=== PATIENT | female | born 1950 | race Caucasian/White ===

== ENCOUNTER → 2016-07-31 | Outpatient (CLI) | payer MEDICARE ==
--- NOTE | 2016-07-31 11:18 | MM ---
Reason for exam: additional evaluation requested from prior study. Last mammogram was performed 10 months ago. History: Patient is postmenopausal, has history of breast cancer at age 64, and had first child at age 34. Family history of breast cancer in maternal aunt at age 50. Malignant MG pre op needle loc LT of the left breast, November 15, 2015. Malignant MG stereo VAD BX LT of the left breast, October 28, 2015. Radiation therapy of the left breast, 2016. Physical Findings: Nurse did not find any significant physical abnormalities on exam. MG 3D Diag Mammo W/Cad JACOBO Bilateral CC and MLO view(s) were taken. Prior study comparison: October 15, 2015, left breast MG work up mamm w CAD LT. October 12, 2015, bilateral MG screening mammo w CAD. August 25, 2013, bilateral MG screening mammo w CAD. The breast tissue is heterogeneously dense. This may lower the sensitivity of mammography. Finding #1: Architectural distortion in the left breast consistent with known lumpectomy. Finding #2: There are a few typically benign round calcifications in both breasts. Skin lesion in the right breast. These results were verbally communicated with the patient and result sheet given to the patient on 07/31/16. ASSESSMENT: Benign, BI-RAD 2 RECOMMENDATION: Follow-up diagnostic mammogram of both breasts in 1 year.
== END | disposition home or self-care (01) ==
LOC: RADMAMWWP 09:37
PROVIDERS: ATTEND Radiology Radiation Oncology
DX: D05.12 Intraductal carcinoma in situ of left breast (principal)
CPT/HCPCS: G0204; G0279

== ENCOUNTER → 2016-08-08 | Outpatient (CLI) | payer MEDICARE ==
[2016-08-08 09:32] LABS: Basophils # (A) 0.1 k/uL (0-0.2); Basophils % (A) 1 %; CH 28.2; CHCM 31.2; Eosinophils # (A) 0.2 k/uL (0-0.7); Eosinophils % (A) 3 %; HCT 40.9 % (34.0-46.0); HDW 2.22; Luc # (Auto) 0.15; Luc % (Auto) 2; Lymphocytes # (A) 1.1 k/uL (1.0-4.8); Lymphocytes % (A) 18 %; MCH 28.8 pg (25.0-35.0); MCHC 31.8 g/dL (31.0-37.0); MCV 90.5 fL (80.0-100.0); Mean Platelet Volume 7.2; Monocytes # (A) 0.3 k/uL (0-1.0); Monocytes % (A) 5 %; Neutrophils # (A) 4.4 k/uL (1.3-7.7); Neutrophils % (A) 70 %; RBC 4.51 m/uL (3.80-5.40); RDW 13.1 % (11.5-15.5); WBC 6.3 k/uL (3.8-10.6); WBC (Perox) 6.39
[2016-08-08 09:55] LABS: ALT 20 U/L (9-52); AST 16 U/L (14-36); Alkaline Phosphatase 82 U/L (38-126); Anion Gap 8 mmol/L; Blood Urea Nitrogen 15 mg/dL (7-17); Calcium 9.1 mg/dL (8.4-10.2); Carbon Dioxide 29 mmol/L (22-30); Chloride 103 mmol/L (98-107); Cholesterol 170 mg/dL (<200); Glucose 100 mg/dL (74-99); HDL Cholesterol 57 mg/dL (40-60); Non-African American GFR(MDRD) >60 (>60 ml/min/1.73 sqM); Potassium 4.4 mmol/L (3.5-5.1); Sodium 140 mmol/L (137-145); Total Bilirubin 0.5 mg/dL (0.2-1.3); Total Protein 7.2 g/dL (6.3-8.2); Triglycerides 119 mg/dL (<150)
== END | disposition home or self-care (01) ==
LOC: LABWHC1 09:05
PROVIDERS: ATTEND Internal Medicine
DX: E78.5 Hyperlipidemia, unspecified (principal)
CPT/HCPCS: 36415; 80053; 80061; 84439; 84443; 85025

== ENCOUNTER → 2016-11-14 | Outpatient (CLI) | payer MEDICARE ==
--- NOTE | 2016-11-15 07:02 | BD ---
EXAMINATION TYPE: MG DEXA axial skeleton. DATE OF EXAM: 11/14/2016 COMPARISON: Prior DEXA bone scan March 16, 2009 CLINICAL HISTORY: Z78.0 POST MENOPAUSAL W/O HRT Height: 60.5 Weight: 152 FRAX RISK QUESTIONS: Alcohol (3 or more units per day): NO Family History (Parent hip fracture): NO Glucocorticoids (More than 3mos): YES (Ex: prednisone, prednisolone, methylprednisolone, dexamethasone, and hydrocortisone). History of Fracture in Adulthood: NO Secondary Osteoporosis: NO 1. Type 1 Diabetes: NO 2. Hyperthyroidism: NO 3. Menopause before 45: NO 4. Malnutrition: NO 5. Chronic liver disease: NO Rheumatoid Arthritis: NO Current Tobacco Use: NO RISK FACTORS HISTORY OF: Surgery to Spine GISELLE PLACEMENT, SCOLIOSIS SURGERY When: AT 30 YRS OLD Family History of Osteoporosis: NO Active: FAIRLY Diet low in dairy products/other sources of calcium: YES, A BIT Postmenopausal woman: 52 YRS OLD Lost more than 2 inches in height since high school: YES Hyperparathyroidism: NO Adrenal Insufficiency: NO MEDICATIONS: Prednisone or other steroids: RESTASIS DROPS FOR EYES, PROVENT, VENTOLIN, How Lon YRS Thyroid Medications: LEVOXYRIXINE How Lon YRS Additional Medications: TRAMADOL, TAMOXIFEN, CLARITIN, FLECAINIDE ACETATE, ASPIRIN, HX OF RADIATION , Additional History: HX OF BREAST CANCER , HEART TROUBLE, BACK PAIN EXAM MEASUREMENTS: Bone mineral densitometry was performed using the Pix4D System. LUMBAR SURG, WITH RODDING AND SCREWS, SCOLIOSIS SURGERY.....LUMBAR NOT SCANNED Bone mineral density about the R hip (g/cm2): 0.740 Bone mineral density about the L hip (g/cm2): 0.825 T Score values are as follows: -----R Neck: -1.9 -----L Neck: -1.8 -----R Total: -2.1 -----L Total: -1.4 Bone mineral density has: Decreased -7.8% since study of: 03.16.2009 FRAX5'S: THERE IS A 10.4% CHANCE FOR A MAJOR OSTEOPOROSIS FX AND A 1.5% FOR HIP FX....PROBABILITY O F FX IN 10 YRS TIME IMPRESSION: Osteopenia (T Score between -2.5 and -1 as noted by T score values persists in both hips. Bone densit y is noted to decrease or diminished from prior study. There remains slightly increased risk of fract ure and the patient may be considered for treatment. Re-Screen 2-5 years NOTE: T-SCORE=SD OF THE YOUNG ADULT MEAN.
--- NOTE | 2016-11-15 07:22 | WWHP ---
[facility] - HISTORY AND PHYSICAL DATE OF SERVICE: 11/14/2016 CHIEF COMPLAINT: The patient is here for her routine gynecologic exam. HPI: This is a 65-year-old G1, P1, with an LMP of 2001. The patient is without gynecologic complaints. She does have a history of lichen sclerosus of the vulva and infrequently uses a steroid cream as needed. She is without complaints and denies any postmenopausal bleeding. PAST MEDICAL HISTORY: Left breast cancer diagnosed in 2016 and she is status post lumpectomy and radiation treatment. Also history of intermittent PVCs, hypothyroidism, asthma, chronic hypertension, arthritis, seasonal allergies, atrial fibrillation and vulvar lichen sclerosus. MEDICATIONS: 1. Levothyroxine 25 mcg daily. 2. Flecainide 100 mg q.12 hours. 3. Tamoxifen 20 mg daily. 4. Tramadol 50 mg t.i.d. p.r.n. 5. Restasis drops b.i.d. 6. Aspirin 81 mg daily. 7. Proventil inhaler 2 puffs p.r.n. 8. Claritin q. day p.r.n. 9. Benadryl p.r.n. ALLERGIES: Allergies to HORACIO, STATINS, YOAV-DUR, AUGMENTIN which cause headache and nausea and CIPROFLOXACIN. PAST SURGICAL HISTORY: Left breast lumpectomy x2 in 2015, section in the past, colonoscopy 2011, bilateral cataract surgery in 2005, and Jc rods placed in her back in 1979. 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 She did have a vulvar biopsy which showed lichen sclerosus in the past. SOCIAL HISTORY: She denies tobacco, alcohol, and drug use. She is single and is not seeing anybody at this time. 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 FAMILY HISTORY: Father had prostate cancer and TB. Grandmother had colon cancer and a cousin had breast cancer. REVIEW OF SYSTEMS: She has gained about 7 pounds over the last year. She denies respiratory, cardiac or GI problems. She denies maltreatment or falling. : She denies any significant problems with urinary leakage. PHYSICAL EXAM: Blood pressure 113/75, height 5 feet 2 inches, weight 156 pounds, temperature 98.3, pulse 92. This is a well-developed, well-nourished, white female, who is alert and oriented x3, in no acute distress HEENT is within normal limits. NECK: Supple without mass or thyromegaly. CHEST AND LUNGS: Clear to auscultation. HEART: Regular rate and rhythm. BREASTS: The left breast has an area consistent with her previous lumpectomy at the upper part of the breast. There are no masses. There is no nipple discharge. There is a skin fleshy mass on the right breast near the sternum, which appears benign and measures approximately 2 x 2 cm. She states she has had this her entire life. Axillary exam is negative for adenopathy. BACK: Negative for CVA tenderness. ABDOMEN: Soft, nontender, without palpable masses. PELVIC EXAM: External genitalia reveals moderate atrophy with minimal generalized pallor of the vulva. There are no focal lesions. Cervix and vagina reveals moderate atrophy without lesions. There is no evidence of prolapse. The uterus is mid position, nongravid size, nontender. There are no palpable adnexal masses or tenderness. Rectovaginal exam is negative for mass or tenderness and is negative for occult blood. EXTREMITIES: Nontender. IMPRESSION: 1. A 65-year-old menopausal female with mildly symptomatic lichen sclerosus of the vulva, which is well controlled with Kenalog cream, which she uses p.r.n. 2. History of left breast cancer, status post lumpectomy and radiation therapy in 2016 with no evidence of recurrence at this time. PLAN: 1. Pap smear was performed. 2. Self breast examination was discussed. 3. Mammogram will be due in 07/2017. 4. Bone density screening will be done today because of her history of osteopenia. 5. Osteoporosis prevention was discussed. 6. She will continue to use Kenalog 0.1% cream b.i.d. p.r.n. She states she does not need a prescription for this at this time. 7. She will get a flu shot when available. 8. She will return in 1 year. MMODL / IJN: [id number] /
== END | disposition home or self-care (01) ==
LOC: WWCWWP 14:35
PROVIDERS: ATTEND Obstetrics & Gynecology
DX: M85.852 Other specified disorders of bone density and structure, left thigh (principal); M85.851 Other specified disorders of bone density and structure, right thigh; Z78.0 Asymptomatic menopausal state
CPT/HCPCS: 77080

== ENCOUNTER 2017-01-24 10:44 | Emergency (ER) | payer MEDICARE, OTHER ==
[2017-01-24 10:51] VITALS: RESP 18
[2017-01-24] MEDS ORDERED: HYDROcodone/APAP 7.5-325MG 1 EACH TAB PO ONE (11:17)
--- NOTE | 2017-01-24 11:40 | XR ---
EXAMINATION TYPE: XR knee complete LT DATE OF EXAM: 01/24/2017 COMPARISON: NONE HISTORY: Pain TECHNIQUE: Four views are submitted. FINDINGS: Diffuse osteopenia noted with moderate narrowing the joint spaces and chondrocalcinosis. There is a l arge subcutaneous hematoma anterior to the patella. Thin linear lucency involving the posterior zuleyka n patella noted. IMPRESSION: 1. Large prepatellar soft tissue hematoma. There is a lucency along the posterior margin patella. Non displaced fracture not excluded correlate with point tenderness. 2. Arthropathy in a pattern suggestive osteoarthritis or depositional arthropathy.
--- NOTE | 2017-01-24 11:55 | ED ---
Lower Extremity Injury HPI - General Chief Complaint: Extremity Injury, Lower Stated Complaint: Fall-Knee Injury Time Seen by Provider: 01/24/17 11:01 Source: patient, RN notes reviewed Mode of arrival: wheelchair Limitations: no limitations - History of Present Illness Initial Comments: This is a 66-year-old female presents emergency Department chief complaint left knee pain. Patient states he tripped and fell box landing onto her left knee. Patient states that it hurt states she was able to family but now has swelling and bruising noted. Patient states she cannot completely bend it because of the pain and swelling. Patient denies head injury no other injuries at this time. - Related Data Home Medications Medication Instructions Recorded Confirmed Albuterol Sulfate [Proventil Hfa] 2 puff INHALATION RT-Q4H PRN 03/12/14 01/24/17 Aspirin EC [Ecotrin Low Dose] 81 mg PO DAILY 03/12/14 01/24/17 Loratadine [Claritin] 10 mg PO DAILY PRN 03/12/14 01/24/17 traMADol HCL [Ultram] 50 mg PO TID PRN 03/12/14 01/24/17 diphenhydrAMINE [Benadryl] 25 mg PO BID PRN 11/12/15 01/24/17 Levothyroxine Sodium [Levoxyl] 25 mcg PO DAILY 11/30/15 01/24/17 Flecainide Acetate [Tambocor] 100 mg PO Q12HR 08/10/16 01/24/17 Tamoxifen Citrate 20 mg PO DAILY 08/10/16 01/24/17 Calcium Carbonate/Vitamin D3 1 tab PO DAILY 01/24/17 01/24/17 [Calcium 500-Vit D3 200 Tablet] cycloSPORINE [Restasis] 1 drop BOTH EYES BID 01/24/17 01/24/17 Previous Rx's Medication Instructions Recorded Hydrocodone/Acetaminophen [[place] 1 tab PO Q6HR PRN #20 tab 01/24/17 5-325] Allergies Allergy/AdvReac Type Severity Reaction Status Date / Time ciprofloxacin [From Cipro] Allergy Rash/Hives Verified 01/24/17 11:11 ciprofloxacin HCl Allergy Rash/Hives Verified 01/24/17 11:11 [From Cipro] fexofenadine HCl Allergy Rash/Hives Verified 01/24/17 11:11 [From Rupinder] amoxicillin [From Augmentin] AdvReac Nausea Verified 01/24/17 11:11 clavulanic acid AdvReac Nausea Verified 01/24/17 11:11 [From Augmentin] Egnkbzp-Sgx-Oag Reductase AdvReac muscle Verified 01/24/17 11:11 Inhibitor cramps theophylline anhydrous AdvReac headaches, Verified 01/24/17 11:11 [From Morteza-Dur] N/V Review of Systems ROS Statement: Those systems with pertinent positive or pertinent negative responses have been documented in the HPI. ROS Other: All systems not noted in ROS Statement are negative. Past Medical History Past Medical History: Atrial Fibrillation, Asthma, Cancer, Hypertension, Osteoarthritis (OA), Pneumonia, Thyroid Disorder Additional Past Medical History / Comment(s): SCOLIOSIS, MIGRAINES, HX OF ARRYTHMIA-HAS LOOP RECORDER., NEW DIAGNOSIS OF BREAST CANCER- GOING TO HAVE RADIATION TX., SEE CARDIOLOGY H & P. History of Any Multi-Drug Resistant Organisms: None Reported Past Surgical History: Back Surgery, Section Additional Past Surgical History / Comment(s): JACOBO CATARACT SX-LENS IMPLANTS, HAS A GISELLE IN BACK, loop recorder insertion, LEFT BREAST LUMPECTOMY (10/2015). Past Anesthesia/Blood Transfusion Reactions: No Reported Reaction, Motion Sickness Past Psychological History: No Psychological Hx Reported Smoking Status: Never smoker Past Alcohol Use History: None Reported Past Drug Use History: None Reported - Past Family History Father Family Medical History: COPD, Osteoarthritis (OA) Additional Family Medical History / Comment(s): ALCOHOLIC Mother Family Medical History: COPD Additional Family Medical History / Comment(s): ALCOHOLIC/SMOKER General Exam Limitations: no limitations General appearance: alert, in no apparent distress Head exam: Present: atraumatic, normocephalic, normal inspection Respiratory exam: Present: normal lung sounds bilaterally. Absent: respiratory distress, wheezes, rales, rhonchi, stridor Cardiovascular Exam: Present: regular rate, normal rhythm, normal heart sounds. Absent: systolic murmur, diastolic murmur, rubs, gallop, clicks Extremities exam: Present: other (Left knee there is moderate swelling, ecchymosis noted, limited range of motion, neurovascular intact there is moderate tenderness with palpation over the anterior surface) Course Vital Signs 01/24/17 10:49 Temperature 98.7 F Pulse Rate 95 Respiratory 18 Rate Blood Pressure 135/88 O2 Sat by Pulse 94 L Oximetry Medical Decision Making - Medical Decision Making 66-year-old female presented emergency department with chief complaint of left knee pain for fall. Patient has a large hematoma. There is no obvious fracture we did discuss possibility of small and a fracture of the patella though this is felt to be less likely. She'll have repeat x-rays follow-up with orthopedics. We discussed rest ice and elevate. Disposition Clinical Impression: Left knee pain, Traumatic hematoma of left knee Disposition: HOME SELF-CARE Condition: Stable Instructions: Knee Pain (ED) Additional Instructions: Please return to the Emergency Department if symptoms worsen or any other concerns. Prescriptions: Hydrocodone/Acetaminophen [[place] 5-325] 1 tab PO Q6HR PRN #20 tab PRN Reason: Pain Referrals: John Hickey MD [Primary Care Provider] - 1-2 days Naif Kaplan MD [STAFF PHYSICIAN] - 1-2 days Time of Disposition: 11:55
[2017-01-24 12:10] VITALS: BP 127/72; PULSE 89; TEMP 97.7
== END 2017-01-24 12:10 | disposition home or self-care (01) ==
LOC: EC 10:44
DX: S80.02XA Contusion of left knee, initial encounter (principal); I48.91 Unspecified atrial fibrillation; E07.9 Disorder of thyroid, unspecified; Z85.3 Personal history of malignant neoplasm of breast; Z98.41 Cataract extraction status, right eye; Z98.42 Cataract extraction status, left eye; Z96.1 Presence of intraocular lens; Z79.82 Long term (current) use of aspirin; Z79.899 Other long term (current) drug therapy; Z88.0 Allergy status to penicillin; Z88.1 Allergy status to other antibiotic agents; Z88.8 Allergy status to other drugs, medicaments and biological substances; W01.0XXA Fall on same level from slipping, tripping and stumbling without subsequent striking against object, initial encounter
CPT/HCPCS: 99283

== ENCOUNTER → 2017-04-11 | Outpatient (CLI) | payer MEDICARE ==
--- NOTE | 2017-04-11 17:27 | XR ---
EXAMINATION TYPE: XR ribs LT DATE OF EXAM: 04/11/2017 COMPARISON: NONE HISTORY: Pain in the left anterior rib TECHNIQUE: 4 views FINDINGS: I see no pleural effusion or pneumothorax. Left lung is clear of consolidation. I see no ri b fracture. There is moderate thoracic dextroscoliosis. IMPRESSION: No rib fracture seen.
--- NOTE | 2017-04-12 10:58 | USB ---
Reason for exam: clinical finding. History: Patient is postmenopausal, has history of breast cancer at age 64, and had first child at age 34. Family history of breast cancer in maternal aunt at age 50 and breast cancer in maternal cousin. Malignant MG pre op needle loc LT of the left breast, November 15, 2015. Malignant MG stereo VAD BX LT of the left breast, October 28, 2015. Radiation therapy of the left breast, 2016. Physical Findings: Nurse Summary: asymmetrical bony prominent left breast upper inner quadrant (nurse mj). US Breast LT Left breast ultrasound includes all four quadrants, the retroareolar region and axilla. Finding demonstrates scar noted at the 12 o'clock lumpectomy site. At the palpable 10 o'clock zone B/C position, prominent rib end and costal cartilage is noted. No other solid or cystic lesion. These results were verbally communicated with the patient and result sheet given to the patient on 04/11/17. ASSESSMENT: Benign, BI-RAD 2 RECOMMENDATION: Routine screening mammogram of both breasts in 4 months. Back on schedule for July 2017.
== END | disposition home or self-care (01) ==
LOC: RADUSWWP 15:40
PROVIDERS: ATTEND Internal Medicine Hematology & Oncology
DX: Z85.3 Personal history of malignant neoplasm of breast (principal); N63.12 Unspecified lump in the right breast, upper inner quadrant

== ENCOUNTER → 2017-08-02 | Outpatient (CLI) | payer MEDICARE ==
--- NOTE | 2017-08-06 12:58 | MM ---
Reason for exam: screening (asymptomatic). Last mammogram was performed 1 year ago. History: Patient is postmenopausal, has history of breast cancer at age 64, and had first child at age 34. Family history of breast cancer in maternal aunt at age 50 and breast cancer in maternal cousin. Malignant MG pre op needle loc LT of the left breast, November 15, 2015. Malignant MG stereo VAD BX LT of the left breast, October 28, 2015. Radiation therapy of the left breast, 2016. Took hormonal contraceptives for 2 months. Taking antineoplastic beginning at age 64. Physical Findings: A clinical breast exam by your physician is recommended on an annual basis and results should be correlated with mammographic findings. MG 3D Screening Mammo W/Cad Bilateral CC and MLO view(s) were taken. Prior study comparison: July 31, 2016, bilateral MG 3d diag mammo w/cad JACOBO. October 12, 2015, bilateral MG screening mammo w CAD. Post surgical changes in the left breast. No significant changes when compared with prior studies. ASSESSMENT: Benign, BI-RAD 2 RECOMMENDATION: Routine screening mammogram of both breasts in 1 year.
== END | disposition home or self-care (01) ==
LOC: RADMAMWWP 08:52
PROVIDERS: ATTEND Radiology Radiation Oncology
DX: Z12.31 Encounter for screening mammogram for malignant neoplasm of breast (principal); Z85.3 Personal history of malignant neoplasm of breast
CPT/HCPCS: 77063; 77067

== ENCOUNTER → 2017-09-12 | Outpatient (CLI) | payer MEDICARE ==
[2017-09-12 09:43] LABS: Basophils % (A) 1 %; Eosinophils # (A) 0.2 k/uL (0-0.7); Eosinophils % (A) 3 %; HCT 42.3 % (34.0-46.0); HGB 13.5 gm/dL (11.4-16.0); Lymphocytes % (A) 15 %; MCH 28.4 pg (25.0-35.0); MCV 88.7 fL (80.0-100.0); Mean Platelet Volume 7.4; Monocytes # (A) 0.4 k/uL (0-1.0); Monocytes % (A) 6 %; Neutrophils % (A) 73 %; Platelet Count 232 k/uL (150-450); RBC 4.77 m/uL (3.80-5.40); RDW 13.9 % (11.5-15.5); WBC 6.8 k/uL (3.8-10.6)
[2017-09-12 10:04] LABS: ALT 24 U/L (9-52); AST 17 U/L (14-36); Albumin 3.9 g/dL (3.5-5.0); Alkaline Phosphatase 71 U/L (38-126); Anion Gap 6 mmol/L; Blood Urea Nitrogen 12 mg/dL (7-17); Calcium 8.9 mg/dL (8.4-10.2); Carbon Dioxide 30 mmol/L (22-30); Chloride 103 mmol/L (98-107); Cholesterol 184 mg/dL (<200); Glucose 108 mg/dL (74-99); HDL Cholesterol 70 mg/dL (40-60); LDL Cholesterol,Calculated 99 mg/dL (0-99); Potassium 4.2 mmol/L (3.5-5.1); Sodium 139 mmol/L (137-145); Total Bilirubin 0.4 mg/dL (0.2-1.3); Total Protein 6.8 g/dL (6.3-8.2); Triglycerides 75 mg/dL (<150)
== END | disposition home or self-care (01) ==
LOC: LABWHC1 09:15
PROVIDERS: ATTEND Internal Medicine
DX: Z00.00 Encounter for general adult medical examination without abnormal findings (principal); E78.5 Hyperlipidemia, unspecified; I10 Essential (primary) hypertension
CPT/HCPCS: 36415; 80053; 80061; 84439; 84443; 85025

== ENCOUNTER → 2018-02-05 | Outpatient (CLI) | payer MEDICARE ==
[2018-02-05 10:21] VITALS: BP 146/86; PULSE 78; TEMP 98.1; BMI 25.6
--- NOTE | 2018-02-05 12:48 | P.HPOB ---
History of Present Illness H&P Date: 02/05/18 Chief Complaint: The patient is here for her routine gynecologic exam. This is a 67-year-old with an LMP of 2001. The patient is on tamoxifen has of her history of left breast cancer. She states about 1 month ago, she had a small amount of pink discharge from the vagina. She was not sure if it was because she scratched her vulvar skin or if it came from inside of the vagina. She states that only lasted for one day and denies any blood since then. Her oncologist wanted me to know about this since she is taking tamoxifen. She is otherwise without gynecologic complaints. Review of Systems She has lost about 16 pounds over the last year. She denies respiratory, cardiac and G.I. problems. She denies maltreatment. She did have a fall after she tripped over something and this did not lead to any significant injury. : she denies any significant problems with urinary leakage. Past Medical History Past Medical History: Atrial Fibrillation, Asthma, Cancer (Left breast cancer 2015, status post lumpectomy and radiation therapy.), Hypertension, Osteoarthritis (OA), Pneumonia, Thyroid Disorder Additional Past Medical History / Comment(s): SCOLIOSIS, MIGRAINES, HX OF BREAST CANCER WITH SURGERY & RADIATION (2016)., OCCASIONAL VERTIGO., BACK PAIN. 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 History of lichen sclerosis by vulvar biopsy. History of Any Multi-Drug Resistant Organisms: None Reported Past Surgical History: Back Surgery, Breast Surgery, Section Additional Past Surgical History / Comment(s): JACOBO CATARACT SX-LENS IMPLANTS, HAS A GISELLE IN BACK, LOOP RECORDER INSERTION & REMOVAL., LEFT BREAST LUMPECTOMY (). Colonoscopy 2011 . Past Anesthesia/Blood Transfusion Reactions: No Reported Reaction, Motion Sickness Past Psychological History: No Psychological Hx Reported Smoking Status: Never smoker Past Alcohol Use History: None Reported Past Drug Use History: None Reported Additional History: She is single and is not seeing anybody at this time. She is retired. - Past Family History Father Family Medical History: Cancer (Prostate cancer), COPD, Osteoarthritis (OA) Additional Family Medical History / Comment(s): ALCOHOLIC Mother Family Medical History: COPD Additional Family Medical History / Comment(s): ALCOHOLIC/SMOKER. Grandmother had colon cancer and a cousin had breast cancer. Medications and Allergies Home Medications Medication Instructions Recorded Confirmed Type Albuterol Sulfate [Proventil Hfa] 2 puff INHALATION RT-Q4H PRN 03/12/14 History Aspirin EC [Ecotrin Low Dose] 81 mg PO DAILY 03/12/14 02/05/18 History traMADol HCL [Ultram] 50 mg PO TID PRN 03/12/14 02/05/18 History diphenhydrAMINE [Benadryl] 25 mg PO BID PRN 11/12/15 02/05/18 History Levothyroxine Sodium [Levoxyl] 25 mcg PO DAILY 11/30/15 02/05/18 History Flecainide Acetate [Tambocor] 100 mg PO Q12HR 08/10/16 02/05/18 History Tamoxifen Citrate 20 mg PO DAILY 08/10/16 02/05/18 History cycloSPORINE [Restasis] 1 drop BOTH EYES BID 01/24/17 02/05/18 History Loratadine-Pseudoeph 10-240 mg 1 each PO DAILY 09/28/17 02/05/18 History [Claritin-D 24 Hr] Multivitamin [Multivitamins Adult PO DAILY 02/05/18 History Gummies] Allergies Allergy/AdvReac Type Severity Reaction Status Date / Time ciprofloxacin [From Cipro] Allergy Rash/Hives Verified 02/05/18 10:10 ciprofloxacin HCl Allergy Rash/Hives Verified 02/05/18 10:10 [From Cipro] fexofenadine HCl Allergy Rash/Hives Verified 02/05/18 10:10 [From Rupinder] amoxicillin [From Augmentin] AdvReac Nausea Verified 02/05/18 10:10 clavulanic acid AdvReac Nausea Verified 02/05/18 10:10 [From Augmentin] Uimixku-Kgy-Ktu Reductase AdvReac muscle Verified 02/05/18 10:10 Inhibitor cramps theophylline anhydrous AdvReac headaches, Verified 02/05/18 10:10 [From Morteza-Dur] N/V Exam Vital Signs Temp Pulse BP 02/05/18 10:13 98.1 F 78 146/86 Intake and Output 02/04/18 02/05/18 02/05/18 22:59 06:59 14:59 Other: Weight 63.503 kg Height 5'2", weight 140 pounds, BMI 25.6. This is a well-developed well-nourished white female who is alert and oriented times 3 in no acute distress. HEENT: Within normal limits. NECK: Supple without mass or thyromegaly. CHEST AND LUNGS: Clear to auscultation. HEART: Regular rate and rhythm. BREASTS: Are without mass or discharge. AXILLARY EXAM: Negative for adenopathy. BACK: Negative for CVA tenderness. Abnormal spine curvature consistent with her history. ABDOMEN: Soft, nontender, without palpable masses. PELVIC EXAM: external genitalia reveals moderate atrophy with mild pallor consistent with lichen sclerosis. There are no focal lesions . The cervix and vagina appear normal with moderate atrophy. There is no unusual discharge and no evidence of blood . There is no evidence of prolapse. The uterus is midposition, nongravid size and nontender. There are no palpable adnexal masses or tenderness. RECTAL EXAM: rectovaginal exam is negative for mass or tenderness and is negative for occult blood. EXTREMITIES: Nontender. IMPRESSION: 1. 67-year-old menopausal female with a small postmenopausal bleeding. Differential diagnosis will include small vulvar bleeding from scratched lichen sclerosis and possible endometrial bleeding. 2. history of left breast cancer on tamoxifen. Since she is on tamoxifen this would slightly increase the risk for endometrial cancer. 3. History of osteopenia PLAN: 1. Pap smear has been deferred since she had a normal one last year. 2. Self breast awareness was discussed with the patient. 3. Diagnostic mammogram was done on 08/02/2017 and was benign. She will continue to do her mammograms through her oncologist. 4. The patient will be scheduled for pelvic ultrasound. Endometrial thickness will be evaluated. Consider referral for endometrial sampling if the endometrium is thickened. 5. She will call she has recurrent bleeding or problems. 6. She did receive a flu shot this fall. 7. She will also return in one year and PRN. 8. Osteoporosis prevention was discussed. We will plan on repeating bone density testing next year.
== END ==
LOC: WWCWWP 09:32
PROVIDERS: ATTEND Obstetrics & Gynecology
DX: Z53.9 Procedure and treatment not carried out, unspecified reason (principal)

== ENCOUNTER → 2018-02-15 | Outpatient (CLI) | payer MEDICARE ==
--- NOTE | 2018-02-15 14:02 | US ---
EXAMINATION TYPE: US pelvis complete transvag DATE OF EXAM: 02/15/2018 COMPARISON: NONE CLINICAL HISTORY: N95.0 Postmenopausal bleeding. Episode of postmenopausal bloody discharge couple mo nths ago, 1, para 1 TECHNIQUE: . Transabdominal sonographic images of the pelvis were acquired. Transvaginal sonographi c images were medically necessary to better assess the following anatomy: endometrium and ovaries. Date of LMP: 2007 EXAM MEASUREMENTS: Uterus: 7.9 x 3.3 x 4.6 cm Endometrial Stripe: 0.7 cm Right Ovary: not seen Left Ovary: not seen 1. Uterus: anteverted 2. Endometrium: borderline thickened, complex with internal cystic regions. 3. Right Ovary: not seen due to overlying peristalsing bowel 4. Left Ovary: not seen due to overlying peristalsing bowel 5. Bilateral Adnexa: wnl 6. Posterior cul-de-sac: wnl IMPRESSION: Abnormally thickened and heterogenous endometrium in a postmenopausal female measuring up to 7 mm. Internal cystic areas are seen. Considerations are for endometrial hyperplasia, endometrial polyps or endometrial mass. Direct visualization could be performed for further evaluation.
--- NOTE | 2018-02-20 13:41 | P.PN ---
Progress Note - Text Progress Note Date: 02/20/18 OUTPATIENT FOLLOW-UP NOTE TEST(S)/RESULTS: pelvic ultrasound done on 02/15/2018 shows an endometrial thickness of 7 mm which is thickened for a postmenopausal female. METHOD OF NOTIFICATION: the patient was notified by phone. PATIENT COMMENTS: the patient had a small amount of bleeding again after the pelvic ultrasound but is no longer bleeding. DIAGNOSIS: small postmenopausal bleeding on tamoxifen with thickened endometrium by pelvic ultrasound. DISCUSSION: we have discussed the importance of sampling the endometrium. Since she was found to have moderate genital atrophy and because her only delivery was by section, I feel it would be best that she be referred for endometrial sampling and possible hysteroscopy and D&C. PLAN: the patient will be referred to a local ladle pourer for endometrial sampling and evaluation of the postmenopausal bleeding.
== END | disposition home or self-care (01) ==
LOC: RADUSWWP 12:33
PROVIDERS: ATTEND Obstetrics & Gynecology
DX: N85.8 Other specified noninflammatory disorders of uterus (principal); N95.0 Postmenopausal bleeding
CPT/HCPCS: 76830; 76856

== ENCOUNTER → 2018-03-05 | Outpatient (CLI) | payer MEDICARE ==
[2018-03-05 08:35] LABS: Basophils % (A) 1 %; Eosinophils # (A) 0.3 k/uL (0-0.7); Eosinophils % (A) 4 %; HCT 41.5 % (34.0-46.0); HGB 13.5 gm/dL (11.4-16.0); Lymphocytes # (A) 1.7 k/uL (1.0-4.8); Lymphocytes % (A) 24 %; MCH 29.2 pg (25.0-35.0); MCHC 32.6 g/dL (31.0-37.0); MCV 89.7 fL (80.0-100.0); Mean Platelet Volume 7.4; Monocytes # (A) 0.4 k/uL (0-1.0); Monocytes % (A) 5 %; Neutrophils # (A) 4.6 k/uL (1.3-7.7); Neutrophils % (A) 65 %; Platelet Count 234 k/uL (150-450); RBC 4.62 m/uL (3.80-5.40); RDW 13.2 % (11.5-15.5); WBC 7.1 k/uL (3.8-10.6)
== END | disposition home or self-care (01) ==
LOC: LABPAT 07:50
PROVIDERS: ATTEND Obstetrics & Gynecology
DX: Z01.812 Encounter for preprocedural laboratory examination (principal); N95.0 Postmenopausal bleeding; N88.2 Stricture and stenosis of cervix uteri
CPT/HCPCS: 85025

== ENCOUNTER 2018-03-11 06:32 | Day surgery (SDC) | payer MEDICARE ==
[2018-03-06 14:31] VITALS: BMI 25.4
[~2018-03-11 06:32] MED LIST: DEXAMETHASONE SOD PHOSPHATE 10 MG/ML 1 ML VIAL IV ONE; HYDROmorphone 0.5 MG/0.5 ML SYRINGE IVP PRN; LACTATED RINGERS 1,000 ML IV SCH; LIDOCAINE 1% 20 ML VIAL (10MG/ML) FOR IV START INTRADERMA PRN; ONDANSETRON 4 MG/2 ML VIAL IVP ONE; Pre Op ABX Message 1 EACH MISC MISCELLANE ONE; SCOPOLAMINE 1.5MG/72HR PATCH TRANSDERM ONE
[2018-03-11] MEDS ORDERED: ONDANSETRON 4 MG/2 ML VIAL IVP PRN (08:15)
[2018-03-11] MEDS ORDERED: LACTATED RINGERS 1,000 ML IV SCH (08:15)
[2018-03-11] MEDS ORDERED: KETOROLAC 30 MG/ML 1 ML VIAL IVP PRN (08:15)
[2018-03-11] MEDS ORDERED: diphenhydrAMINE 50 MG/ML 1 ML VIAL IVP PRN (08:15)
[2018-03-11] MEDS ORDERED: SIMETHICONE 80 MG CHEWABLE PO PRN (08:15)
[2018-03-11] MEDS ORDERED: IBUPROFEN 600 MG TAB PO PRN (08:15)
[2018-03-11] MEDS ORDERED: METOCLOPRAMIDE 5 MG/ML 2 ML VIAL IVP PRN (08:15)
[2018-03-11] MEDS ORDERED: Acetaminophen-Codeine 300-30mg TAB PO PRN ×2 (08:15)
--- NOTE | 2018-03-11 08:25 | P.OP ---
Date of Procedure: 03/11/18 Preoperative Diagnosis: #1. Menorrhagia Postoperative Diagnosis: Same Procedure(s) Performed: #1. Diagnostic hysteroscopy #2. NovaSure endometrial ablation Anesthesia: other (Gen. by face mask) Surgeon: Lawrence Barbosa Estimated Blood Loss (ml): 5 IV fluids (ml): 700 Urine output (ml): 75 Pathology: none sent Condition: stable Disposition: PACU Operative Findings: Preoperative pelvic examination demonstrated a roughly 5-6 week midplane mobile normal shaped uterus with normal adnexa bilaterally. Intraoperatively, the cervix was 4 cm in length was uterus sounded to approximately 10 cm. The hysteroscopic view of the uterus demonstrated a moderate amount of blood in the cavity as she was on her menses. The tubal ostia were not seen but there was no apparent pathology throughout. The settings for the NovaSure tool where a length of 6.0 cm, a width of 3.8 cm, and a total power of 125 W. Prior to successful application of the NovaSure tool, 2 tools were previously placed and set with cavity checks past but failed. The first tool failed secondary to vacuum failure on 3 separate occasions. It was replaced with a second 20 which failed secondary to a light on the base unit reading array position that would not allow the tool to unable. The third tool with the settings as above was successful. After a run time of 42 seconds, the base unit read "procedure complete." The postprocedural result was good but there was still some blood seen in the cavity. The patient is a potential candidate for vaginal hysterectomy should become necessary. Description of Procedure: The patient was prepped and draped in usual fashion after general anesthesia was administered by the anesthesiologist. A weighted speculum was placed and the bladder was drained of approximately 75 mL of clear anjelica urine. The cervix was sent for 72 while uterus sounded to approximately 10 cm. Serial dilation was carried out to admit the diagnostic hysteroscope which was placed to the fundus and distended with saline. The bilateral tubal ostia regions were seen but there was clot and blood in the admixture making ClearView of them impossible. There was no apparent pathology to include polyps or fibroids. The scope was set aside and the the NovaSure tool placed and seated well. After seating, the cavity check was attempted and passed and the tool enabled. The run was started and the base unit then read vacuum failure. The tool was really enabled after second cavity check and the base unit again read "vacuum failure." The 2 was discarded and the second tool placed within the cavity. After the tool was placed and opened and the settings were made, the cavity check was attempted and passed without difficulty. The tool was enabled and we were unable to start the run as the base unit read "array position" failure. Another attempt was made and the tool again read array position failure. A third to was then used and placed into the endometrial cavity and opened with the settings of 6.0 for a length, 3.84 with for a total power 125 W. The tool was enabled and the run was started. After total run time of 42 seconds, the base unit read "procedure complete." The 2 was removed and discarded and the diagnostic hysteroscope placed in the fundus. The procedure appeared to be good thorough not particularly typical. There was still some blood present within the cavity. The xavier did appear to be well charred. The scope was removed and set aside an Allis her mentation removed as well. There was no ongoing bleeding from either the cervix or from the tenaculum points. Estimated blood loss for the case was less than 5 mL. There were no complications aside from the failure of the first 2 tools. All sponge, instrument, and needle counts were correct. The patient tolerated the procedure well and proceeded to the recovery room in stable condition.
[2018-03-11] MEDS ORDERED: PROPOFOL 10 MG/ML 20 ML VIAL IV ONE (08:36)
[2018-03-11] MEDS ORDERED: fentaNYL (PF) 50 MCG/ML 2 ML AMP ONE (08:36)
[2018-03-11] MEDS ORDERED: MIDAZOLAM 2 MG/2 ML VIAL ONE (08:36)
[2018-03-11] MEDS ORDERED: LIDOCAINE 1% INJ 10MG/ML (20 ML MDV) ONE (08:36)
[2018-03-11] MEDS ORDERED: KETOROLAC 30 MG/ML 1 ML VIAL ONE (08:36)
[2018-03-11] MEDS ORDERED: LACTATED RINGERS 1,000 ML IV ONE ×2 (09:20)
--- NOTE | 2018-03-11 09:23 | P.OP ---
Date of Procedure: 03/11/18 Preoperative Diagnosis: #1. Postmenopausal bleeding Postoperative Diagnosis: Same Procedure(s) Performed: #1. Diagnostic hysteroscopy #2. Elevation and curettage Anesthesia: other (Gen. by face mask) Surgeon: Lawrence Barbosa Estimated Blood Loss (ml): 5 IV fluids (ml): 600 Urine output (ml): 150 Pathology: other (Endometrial curettings) Condition: stable Disposition: PACU Operative Findings: Preoperative pelvic examination confirmed an extraordinarily atrophic vagina which admitted only 1 finger. The uterus was approximately 4-5 weeks in size, midplane, mobile, and normal in shape. Intraoperatively, the uterus sounded to 8 cm. There was some potential a polypoid tissue seen along the posterior aspect of the uterine wall but no other pathology noted. A small amount of tissue was sent to pathology for diagnoses. The typical gritty texture was encountered throughout. Description of Procedure: The patient was prepped and draped in usual fashion after general anesthesia was administered by the anesthesiologist. A bivalve speculum was placed is a weighted speculum would not fit. The anterior lip of the cervix was grasped with a single-tooth tenaculum and the uterus sounded to approximately 8 cm as noted above. Serial dilation was carried out to admit the diagnostic hysteroscope which was placed and the findings were benign in appearance as noted above. After adequate hysteroscopy carried out, the scope was set aside and a small sharp curet utilized to thoroughly and circumferentially sweep the endometrial cavity of its contents which were then collected onto a Telfa. The specimen was sent for pathological diagnoses. There was a small amount of tissue apparent. After adequate curettage been carried out, all instrumentation was removed. There was a small amount of bleeding ongoing from the anterior lip of the cervix which was minimal in nature. There was additionally a skin split at the posterior peritoneum from the speculum which was also not repaired. All sponge, instrument, and needle counts were correct. Estimated blood loss for the case was less than 5 mL. There were no compilations medications. The patient tolerated the procedure well and proceeded to the recovery room in stable condition.
[2018-03-11 09:34] VITALS: TEMP 97
[2018-03-11 09:35] VITALS: RESP 16
[2018-03-11 10:13] VITALS: BP 143/88; PULSE 74
== END 2018-03-11 10:47 | disposition home or self-care (01) ==
LOC: OR 06:32
PROVIDERS: ATTEND Obstetrics & Gynecology
DX: N95.0 Postmenopausal bleeding (principal); N95.2 Postmenopausal atrophic vaginitis; N88.2 Stricture and stenosis of cervix uteri; R93.89 Abnormal findings on diagnostic imaging of other specified body structures; I48.91 Unspecified atrial fibrillation; J45.909 Unspecified asthma, uncomplicated; E07.9 Disorder of thyroid, unspecified; I10 Essential (primary) hypertension; L90.0 Lichen sclerosus et atrophicus; G43.909 Migraine, unspecified, not intractable, without status migrainosus; M19.90 Unspecified osteoarthritis, unspecified site; M85.80 Other specified disorders of bone density and structure, unspecified site; Z85.3 Personal history of malignant neoplasm of breast; Z92.3 Personal history of irradiation; Z80.42 Family history of malignant neoplasm of prostate; Z80.3 Family history of malignant neoplasm of breast; Z80.0 Family history of malignant neoplasm of digestive organs; Z79.82 Long term (current) use of aspirin; Z79.891 Long term (current) use of opiate analgesic; Z79.810 Long term (current) use of selective estrogen receptor modulators (SERMs); Z79.890 Hormone replacement therapy; Z79.899 Other long term (current) drug therapy; Z88.1 Allergy status to other antibiotic agents; Z88.8 Allergy status to other drugs, medicaments and biological substances
CPT/HCPCS: 88305; 58558; J2250; J1100; J2405; J2001; J3010; J1885; J2704

== ENCOUNTER → 2018-08-05 | Outpatient (CLI) | payer MEDICARE ==
--- NOTE | 2018-08-05 11:54 | MM ---
Reason for exam: additional evaluation requested from prior study. Last mammogram was performed 1 year ago. History: Patient is postmenopausal, has history of breast cancer at age 64, and had first child at age 34. Family history of breast cancer in maternal aunt at age 50 and breast cancer in maternal cousin. Malignant MG pre op needle loc LT of the left breast, November 15, 2015. Malignant MG stereo VAD BX LT of the left breast, October 28, 2015. Radiation therapy of the left breast, 2016. Took hormonal contraceptives for 2 months. Taking antineoplastic beginning at age 64. Physical Findings: Nurse did not find any significant physical abnormalities on exam. MG 3D Diag Mammo W/Cad JACOBO Bilateral CC and MLO view(s) were taken. XCCL view(s) were taken of the left breast. Prior study comparison: August 02, 2017, bilateral MG 3d screening mammo w/cad. July 31, 2016, bilateral MG 3d diag mammo w/cad JACOBO. The breast tissue is heterogeneously dense. This may lower the sensitivity of mammography. Post therapy change on the left. These results were verbally communicated with the patient and result sheet given to the patient on 08/05/18. ASSESSMENT: Benign, BI-RAD 2 RECOMMENDATION: Follow-up diagnostic mammogram of both breasts in 1 year.
== END | disposition home or self-care (01) ==
LOC: RADMAMWWP 10:00
PROVIDERS: ATTEND Radiology Radiation Oncology
DX: Z08 Encounter for follow-up examination after completed treatment for malignant neoplasm (principal); D05.12 Intraductal carcinoma in situ of left breast; Z85.3 Personal history of malignant neoplasm of breast
CPT/HCPCS: 77066; G0279; 77062

== ENCOUNTER → 2019-02-17 | Outpatient (CLI) | payer MEDICARE ==
[2019-02-17 10:23] LABS: HGB 12.9 gm/dL (11.4-16.0); MCH 29.1 pg (25.0-35.0); MCHC 32.2 g/dL (31.0-37.0); MCV 90.4 fL (80.0-100.0); Mean Platelet Volume 8.8; Neutrophils % (A) 64 %; Platelet Count 226 k/uL (150-450); RBC 4.42 m/uL (3.80-5.40); RDW 13.2 % (11.5-15.5); WBC 5.3 k/uL (3.8-10.6)
[2019-02-17 10:24] LABS: Basophils # (A) 0.1 k/uL (0-0.2); Basophils % (A) 1 %; Eosinophils # (A) 0.2 k/uL (0-0.7); Eosinophils % (A) 4 %; Lymphocytes # (A) 1.2 k/uL (1.0-4.8); Lymphocytes % (A) 22 %; Monocytes # (A) 0.3 k/uL (0-1.0); Monocytes % (A) 6 %; Neutrophils # (A) 3.4 k/uL (1.3-7.7)
[2019-02-17 17:12] LABS: African American GFR (CKD) 87.8 (60.0-200.0); Albumin/Globulin Ratio 1.82 (1.60-3.17); Anion Gap 3.7 mmol/L (4.00-12.00); BUN/Creat Ratio 18.75 Ratio (12.00-20.00); Calcium 8.9 mg/dL (8.7-10.3); Carbon Dioxide 29.3 mmol/L (21.6-31.8); Chol/HDL Ratio 2.14; Globulin 2.2 g/dL (1.6-3.3); Non-African American GFR(CKD) 75.8 (60.0-200.0); Potassium 4.4 mmol/L (3.5-5.5); Total Bilirubin 0.4 mg/dL (0.3-1.2); Total Protein 6.2 g/dL (6.2-8.2)
[2019-02-17 17:20] LABS: T4, Free (Free Thyroxine) 1.2 ng/dL (0.80-1.80)
== END | disposition home or self-care (01) ==
LOC: LABWHC1 09:19
PROVIDERS: ATTEND Internal Medicine
DX: J45.909 Unspecified asthma, uncomplicated (principal); I48.91 Unspecified atrial fibrillation; I10 Essential (primary) hypertension
CPT/HCPCS: 36415; 80053; 80061; 84439; 84443; 85025

== ENCOUNTER 2019-04-25 08:49 | Emergency (ER) | payer MEDICARE ==
[2019-04-25 08:54] VITALS: BP 163/91; RESP 20; TEMP 97.8
--- NOTE | 2019-04-25 09:28 | XR ---
Left wrist HISTORY: Left wrist pain Correlation to left hand 11/04/2012 Arthropathy changes are extensive, subluxation present at the carpometacarpal joint of the first digi t with associated osteoarthritic change as on prior exam. 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 Calcification present along the triangular fibrocartilage as on prior. Mild negative ulna r variance. No fracture or dislocation. Joint space loss and subchondral sclerosis present at the int ercarpal joints. Soft tissue calcification also noted lateral to the radial scaphoid joint. Remodelin g is present at the radiocarpal joint. IMPRESSION: Osteoarthritis, consider crystal deposition arthropathy, hypercalcemic states.
--- NOTE | 2019-04-25 10:09 | US ---
EXAMINATION TYPE: US extremity nonvascular ltd LT DATE OF EXAM: 04/25/2019 COMPARISON: NONE CLINICAL HISTORY: left wrist/cyst?? near scaphoid area. Left wrist pain and swelling. TECHNIQUE/FINDINGS: Targeted ultrasound was performed of the left wrist at the area of pain and swell ing. No solid or cystic masses seen. No abnormalities seen on today's exam. IMPRESSION: No sonographic abnormality in the patient's area of pain and swelling of the left wrist. Given history ganglion cyst is possible. MRI would better characterize the wrist.
[2019-04-25] MEDS ORDERED: KETOROLAC 60 MG/2 ML VIAL IM STA (10:12)
[2019-04-25] MEDS ORDERED: ACET/COD 300 MG/30 MG STARTER PACK 6 TAB BTL PO STA (10:13)
--- NOTE | 2019-04-25 10:13 | ED ---
Upper Extremity HPI - General Chief Complaint: Extremity Injury, Upper Stated Complaint: lt hand/wrist pain Time Seen by Provider: 04/25/19 09:01 Source: patient Mode of arrival: ambulatory Limitations: no limitations - History of Present Illness Initial Comments: 68-year-old female presenting for dorsal aspect left wrist pain. Patient said she has history of arthritis as carpal tunnel in the left wrist. Patient states that she now is pain on the dorsal aspect more near the thumb. Patient states she feels a small lump. She states it is very tender has been increasing in pain. Past 2 days she denies redness fever or flulike symptoms. Patient states she is able to range the wrist however this is painful. Patient denies history of gout. He abuses negative patient denies any other areas of involvement. Remaining ROS (-). Upon arrival patient appears well there is no signs of acute distress. - Related Data Home Medications Medication Instructions Recorded Confirmed Aspirin EC [Ecotrin Low Dose] 81 mg PO DAILY 03/12/14 03/06/18 traMADol HCL [Ultram] 50 mg PO TID PRN 03/12/14 03/11/18 diphenhydrAMINE [Benadryl] 25 mg PO BID PRN 11/12/15 03/11/18 Levothyroxine Sodium [Levoxyl] 25 mcg PO DAILY 11/30/15 03/11/18 Tamoxifen Citrate 20 mg PO DAILY 08/10/16 03/11/18 cycloSPORINE [Restasis] 1 drop BOTH EYES BID 01/24/17 03/11/18 Multivitamin [Multivitamins Adult 1 tab PO DAILY 02/05/18 03/06/18 Gummies] Albuterol Inhaler [Ventolin Hfa 2 puff INHALATION DIRECTED PRN 03/06/18 03/11/18 Inhaler] Cholecalciferol [Vitamin D3] 1,000 unit PO DAILY 03/06/18 03/06/18 Flecainide Acetate [Tambocor] 100 mg PO Q12HR 03/06/18 03/11/18 Loratadine-Pseudoeph 10-240 mg 1 each PO DAILY PRN 03/06/18 03/11/18 [Claritin-D 24 Hr] Allergies Allergy/AdvReac Type Severity Reaction Status Date / Time ciprofloxacin [From Cipro] Allergy Rash/Hives Verified 04/25/19 08:53 ciprofloxacin HCl Allergy Rash/Hives Verified 04/25/19 08:53 [From Cipro] fexofenadine HCl Allergy Rash/Hives Verified 04/25/19 08:53 [From Rupinder] amoxicillin [From Augmentin] AdvReac Nausea Verified 04/25/19 08:53 clavulanic acid AdvReac Nausea Verified 04/25/19 08:53 [From Augmentin] Adwdmqb-Ekj-Ded Reductase AdvReac muscle Verified 04/25/19 08:53 Inhibitor cramps theophylline anhydrous AdvReac headaches, Verified 04/25/19 08:53 [From Morteza-Dur] N/V Review of Systems ROS Statement: Those systems with pertinent positive or pertinent negative responses have been documented in the HPI. ROS Other: All systems not noted in ROS Statement are negative. Past Medical History Past Medical History: Atrial Fibrillation, Asthma, Cancer, Hypertension, Osteoarthritis (OA), Pneumonia, Thyroid Disorder Additional Past Medical History / Comment(s): SCOLIOSIS, MIGRAINES, HX OF BREAST CANCER WITH SURGERY & RADIATION (2016)., OCCASIONAL VERTIGO., BACK PAIN. 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 History of lichen sclerosis by vulvar biopsy. History of Any Multi-Drug Resistant Organisms: None Reported Past Surgical History: Back Surgery, Breast Surgery, Section Additional Past Surgical History / Comment(s): JACOBO CATARACT SX-LENS IMPLANTS, HAS A GISELLE IN BACK, LOOP RECORDER INSERTION & REMOVAL., LEFT BREAST LUMPECTOMY (10/2015). Colonoscopy 2011 . Past Anesthesia/Blood Transfusion Reactions: No Reported Reaction, Motion Sickness Past Psychological History: No Psychological Hx Reported Smoking Status: Never smoker Past Alcohol Use History: None Reported Past Drug Use History: None Reported - Past Family History Father Family Medical History: Cancer (Prostate cancer), COPD, Osteoarthritis (OA) Additional Family Medical History / Comment(s): ALCOHOLIC Mother Family Medical History: No Reported History Additional Family Medical History / Comment(s): ALCOHOLIC/SMOKER. Grandmother had colon cancer and a cousin had breast cancer. General Exam - General Exam Comments Initial Comments: General: The patient is awake and alert, in no distress, and does not appear acutely ill. Eye: +3 mm Pupils are equal, round and reactive to light, extra-ocular movements are intact. No nystagmus. There is normal conjunctiva bilaterally. No signs of icterus. Ears, nose, mouth and throat: There are moist mucous membranes and no oral lesions. Neck: The neck is supple, there is no tenderness or JVD. Cardiovascular: There is a regular rate and rhythm. No murmur, rub or gallop is appreciated. Respiratory: Lungs are clear to auscultation, respirations are non-labored, breath sounds are equal. No wheezes, stridor, rales, or rhonchi. Gastrointestinal: Soft, non-distended, non-tender abdomen without masses or organomegaly noted. There is no rebound or guarding present. Musculoskeletal: Thre is round raised skin color lesions that appears deep and is tendern to palpation on the dorsal aspect of wrist. Normal ROM, with tenderness. Strength 5/5. Sensation intact. Radial and DP pulses equal bilaterally 2+. She is able to make the okay fingers crossed thumbs-up and oppose the small digit and thumb no wrist drop. No redness or warmth to the joint. Neurological: A&O x 3. CN II-XII intact grossly, There are no obvious motor or sensory deficits. Coordination appears grossly intact. Speech is normal. Skin: Skin is warm and dry and no rashes or lesions are noted. Psychiatric: Cooperative, appropriate mood & affect, normal judgment. Limitations: no limitations Course Vital Signs 04/25/19 04/25/19 08:50 10:39 Temperature 97.8 F 97.8 F Pulse Rate 91 88 Respiratory 20 20 Rate Blood Pressure 163/91 163/91 O2 Sat by Pulse 99 99 Oximetry Medical Decision Making - Medical Decision Making Clinical findings suspicious for ganglion cyst. This was not evident on u ltrasound however MRI being more sensitive study. X-ray revealed some calcified processes. Patient has no redness no general malaise or constitutional symptoms. At this time I feel patient is stable for discharge with use of tylenol, and orthopedic f/u. Return parameters discussed, case discussed with attending and at this time both parties are agreeable and prefer discharge. Patient discharged appearing well. Disposition Clinical Impression: Left wrist pain, Ganglion cyst, Hx of chronic arthritis Disposition: HOME SELF-CARE Condition: Good Instructions (If sedation given, give patient instructions): Ganglion Cysts (ED) Additional Instructions: Please use medication as discussed. Please follow-up with family doctor in the next 2 days. Please return to emergency room if the symptoms increase or worsen or for any other concerns. Is patient prescribed a controlled substance at d/c from ED?: No Referrals: John Hickey MD [Primary Care Provider] - 1-2 days Dominic Yeboah DO [Doctor of Osteopathic Medicine] - 1-2 days Time of Disposition: 10:16
[2019-04-25 10:40] VITALS: PULSE 88
== END 2019-04-25 10:43 | disposition home or self-care (01) ==
LOC: EC 08:49
DX: M67.432 Ganglion, left wrist (principal); M19.032 Primary osteoarthritis, left wrist; I48.91 Unspecified atrial fibrillation; J45.909 Unspecified asthma, uncomplicated; C50.912 Malignant neoplasm of unspecified site of left female breast; I10 Essential (primary) hypertension; E07.9 Disorder of thyroid, unspecified; Z88.0 Allergy status to penicillin; Z88.1 Allergy status to other antibiotic agents; Z88.8 Allergy status to other drugs, medicaments and biological substances; Z79.82 Long term (current) use of aspirin; Z79.890 Hormone replacement therapy; Z79.899 Other long term (current) drug therapy; Z79.810 Long term (current) use of selective estrogen receptor modulators (SERMs); Z92.3 Personal history of irradiation; Z98.890 Other specified postprocedural states; Z82.61 Family history of arthritis
CPT/HCPCS: 99284

== ENCOUNTER → 2019-08-08 | Outpatient (CLI) | payer MEDICARE ==
--- NOTE | 2019-08-12 10:21 | MM ---
Reason for exam: additional evaluation requested from prior study. Last mammogram was performed 1 year ago. History: Patient is postmenopausal, has history of breast cancer at age 64, and had first child at age 34. Family history of breast cancer in maternal aunt at age 50 and breast cancer in maternal cousin. Malignant MG pre op needle loc LT of the left breast, November 15, 2015. Malignant MG stereo VAD BX LT of the left breast, October 28, 2015. Radiation therapy of the left breast, 2016. Took hormonal contraceptives for 2 months. Taking antineoplastic beginning at age 64. Physical Findings: Nurse did not find any significant physical abnormalities on exam. MG 3D Diag Mammo W/Cad JACOBO Bilateral CC, MLO, and XCCL view(s) were taken. Prior study comparison: August 05, 2018, bilateral MG 3d diag mammo w/cad JACOBO. August 02, 2017, bilateral MG 3d screening mammo w/cad. The breast tissue is heterogeneously dense. This may lower the sensitivity of mammography. Stable large posterior cutaneous lesion on the right. Stable post surgical change on the left. No significant new findings when compared with previous films. These results were verbally communicated with the patient and result sheet given to the patient on 08/08/19. ASSESSMENT: Benign, BI-RAD 2 RECOMMENDATION: Follow-up diagnostic mammogram of both breasts in 1 year.
== END | disposition home or self-care (01) ==
LOC: RADMAMWWP 08:09
PROVIDERS: ATTEND Radiology Radiation Oncology
DX: D05.12 Intraductal carcinoma in situ of left breast (principal); Z17.0 Estrogen receptor positive status [ER+]
CPT/HCPCS: 77066; G0279; 77062

== ENCOUNTER → 2020-01-06 | Outpatient (CLI) | payer MEDICARE ==
[2020-01-06 15:56] VITALS: BP 144/63; PULSE 83; RESP 18; TEMP 98.5
--- NOTE | 2020-01-06 17:04 | P.HPOB ---
History of Present Illness H&P Date: 01/06/20 Chief Complaint: The patient is here for her routine gynecologic exam. This is a 69-year-old with an LMP of 2001. The patient is without gynecologic complaints and denies any postmenopausal bleeding. At her last well woman care appointment on 02/05/2018 she had a small amount of pink discharge from the vagina and was found have an endometrial thickness of 7 mm. The patient underwent a hysteroscopy with D&C in February 2018 and a benign polyp was removed by Dr. Barbosa. She denies any bleeding since then. Review of Systems She has lost about 18 pounds over the past 2 years. She denies respiratory, cardiac, or GI problems. Past Medical History Past Medical History: Atrial Fibrillation, Asthma, Cancer, Hypertension, Osteoarthritis (OA), Pneumonia, Thyroid Disorder Additional Past Medical History / Comment(s): SCOLIOSIS, MIGRAINES, HX OF BREAST CANCER WITH SURGERY & RADIATION (2015)., OCCASIONAL VERTIGO., BACK PAIN. 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 History of lichen sclerosis by vulvar biopsy. History of Any Multi-Drug Resistant Organisms: None Reported Past Surgical History: Back Surgery, Breast Surgery, Section Additional Past Surgical History / Comment(s): JACOBO CATARACT SX-LENS IMPLANTS, HAS A GISELLE IN BACK, LOOP RECORDER INSERTION & REMOVAL., LEFT BREAST LUMPECTOMY (10/2015). Carpal tunnel surgery. Colonoscopy 2011 . Past Anesthesia/Blood Transfusion Reactions: No Reported Reaction, Motion Sickness Past Psychological History: No Psychological Hx Reported Smoking Status: Never smoker Past Alcohol Use History: None Reported Past Drug Use History: None Reported Additional History: She is single and is not seeing anybody at this time and is not sexually active. 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 - Past Family History Father Family Medical History: Cancer, COPD, Osteoarthritis (OA) Additional Family Medical History / Comment(s): ALCOHOLIC Mother Family Medical History: No Reported History Additional Family Medical History / Comment(s): ALCOHOLIC/SMOKER. Grandmother had colon cancer and a cousin had breast cancer. Medications and Allergies Home Medications Medication Instructions Recorded Confirmed Type traMADol HCL [Ultram] 50 mg PO TID PRN 03/12/14 01/06/20 History diphenhydrAMINE [Benadryl] 25 mg PO BID PRN 11/12/15 01/06/20 History Levothyroxine Sodium [Levoxyl] 25 mcg PO DAILY 11/30/15 01/06/20 History Tamoxifen Citrate 20 mg PO DAILY 08/10/16 01/06/20 History Cholecalciferol [Vitamin D3] 1,000 unit PO DAILY 03/06/18 01/06/20 History Flecainide Acetate [Tambocor] 100 mg PO Q12HR 03/06/18 01/06/20 History Loratadine-Pseudoeph 10-240 mg 1 each PO DAILY PRN 03/06/18 01/06/20 History [Claritin-D 24 Hr] Albuterol Sulfate [Proventil Hfa] 1 puff INHALATION Q4-6H PRN 01/06/20 01/06/20 History Apixaban [Eliquis] 5 mg PO BID 01/06/20 01/06/20 History Triamcinolone Acetonide 1 applic TOPICAL DAILY 01/06/20 01/06/20 History [Triamcinolone Acetonide 0.025%] Allergies Allergy/AdvReac Type Severity Reaction Status Date / Time ciprofloxacin [From Cipro] Allergy Rash/Hives Verified 01/06/20 15:44 ciprofloxacin HCl Allergy Rash/Hives Verified 01/06/20 15:44 [From Cipro] fexofenadine HCl Allergy Rash/Hives Verified 01/06/20 15:44 [From Rupinder] amoxicillin [From Augmentin] AdvReac Nausea Verified 01/06/20 15:44 clavulanic acid AdvReac Nausea Verified 01/06/20 15:44 [From Augmentin] Qdtdcyk-Wnc-Oou Reductase AdvReac muscle Verified 01/06/20 15:44 Inhibitor cramps theophylline anhydrous AdvReac headaches, Verified 01/06/20 15:44 [From Morteza-Dur] N/V Exam Vital Signs Temp Pulse Resp BP Pulse Ox 01/06/20 15:52 98.5 F 83 18 144/63 96 Intake and Output 01/06/20 01/06/20 01/06/20 06:59 14:59 22:59 Other: Weight 55.338 kg Height 5 feet 1-1/2 inches, weight 122 pounds, BMI 22.7. This is a well-developed well-nourished white female who is alert and oriented times 3 in no acute distress. HEENT: Within normal limits. NECK: Supple without mass or thyromegaly. CHEST AND LUNGS: Clear to auscultation. HEART: Regular rate and rhythm. BREASTS: Are without mass or discharge. There is a dimpled area in the left breast at approximately the 1 o'clock position consistent with her lumpectomy. AXILLARY EXAM: Negative for adenopathy. BACK: Negative for CVA tenderness. Abnormal spine curvature consistent with her history. ABDOMEN: Soft, nontender, without palpable masses. PELVIC EXAM: Normal external genitalia with moderate atrophy. The introitus is similar to a virginal introitus. Cervix and vagina appear normal with moderate to severe atrophy. The cervix is somewhat friable upon doing the Pap smear consistent with severe atrophy. There is no unusual discharge. There is no evidence of prolapse. The uterus is midposition, nongravid size and nontender. There are no palpable adnexal masses or tenderness. RECTAL EXAM: Rectovaginal exam is negative for mass or tenderness and is negative for occult blood. EXTREMITIES: Nontender. IMPRESSION: 1. 69-year-old menopausal female with moderate to severe genital atrophy and is otherwise unremarkable. 2. History of left breast cancer on tamoxifen. 3. History of osteopenia. PLAN: 1. Pap smear was performed. If this is negative, we'll consider discontinuing Pap smears in the future. 2. Self breast awareness was discussed with the patient. 3. Diagnostic mammogram was done on 08/08/2019 and was benign. She will do this through her radiation oncologist as she is done in the past. 4. Osteoporosis prevention was discussed. I have stressed the importance of adequate calcium, vitamin D and regular exercise. Recommended amounts of calcium and vitamin D were also discussed. I have recommended bone density testing and the order slip was given to the patient for this. 5. She was advised to return in one year for her annual well woman exam.
--- NOTE | 2020-01-21 08:51 | P.PN ---
Progress Note - Text Progress Note Date: 01/21/20 OUTPATIENT FOLLOW-UP NOTE TEST(S)/RESULTS: Pap smear done on 01/06/2020 showed ASCUS with high-risk HPV testing pending. METHOD OF NOTIFICATION: The patient was notified by phone. PATIENT COMMENTS: She states she has had no history of abnormal Pap smears in the past. DIAGNOSIS: ASCUS Pap smear DISCUSSION: We have discussed how high-risk HPV testing is pending. If this is negative, we will plan on repeating Pap smear with cold testing in 2-3 years. If it is positive she will be referred for colposcopic examination. PLAN: Await high-risk HPV testing.
--- NOTE | 2020-01-27 12:36 | P.PN ---
Progress Note - Text Progress Note Date: 01/27/20 OUTPATIENT FOLLOW-UP NOTE TEST(S)/RESULTS: Pap smear done on 01/06/2020 showed ASCUS with negative high- risk HPV testing. METHOD OF NOTIFICATION: The patient was notified by phone. PATIENT COMMENTS: DIAGNOSIS: ASCUS Pap smear with negative high-risk HPV testing. DISCUSSION: We will not discontinue cervical screening at this time. We'll plan on repeating co-testing in 2-3 years. PLAN: The patient was advised to return in 1-2 years for her well woman examination. Cervical screening with Pap smear co-testing in 2-3 years.
== END | disposition home or self-care (01) ==
LOC: WWCWWP 15:29
PROVIDERS: ATTEND Obstetrics & Gynecology
DX: Z53.9 Procedure and treatment not carried out, unspecified reason (principal)

== ENCOUNTER → 2020-02-13 | Outpatient (CLI) | payer MEDICARE ==
--- NOTE | 2020-02-13 16:11 | BD ---
EXAMINATION TYPE: Axial Bone Density DATE OF EXAM: 02/13/2020 COMPARISON: NONE CLINICAL HISTORY: Height: 5 FT 1 1/4 IN Weight: 121 FRAX RISK QUESTIONS: Alcohol (3 or more units per day): NO Family History (Parent hip fracture): NO Glucocorticoids (More than 3mos): NO (Ex: prednisone, prednisolone, methylprednisolone, dexamethasone, and hydrocortisone). History of Fracture in Adulthood: NO Secondary Osteoporosis: 1. Type 1 Diabetes: NO 2. Hyperthyroidism: NO 3. Menopause before 45: NO 4. Malnutrition: NO 5. Chronic liver disease: NO Rheumatoid Arthritis: NO Current Tobacco Use: NO RISK FACTORS HISTORY OF: Surgery to Spine/Hip(right/left)/Wrist (right/left): SPINE SURG SCOLIOSIS GISELLE PLACED When: AGE 30 Family History of Osteoporosis: NO Active: YES Diet low in dairy products/other sources of calcium: NO Postmenopausal woman: AGE 52 Take estrogen and/or progesterone medications: NONE Lost more than 2 inches in height since high school: YES MEDICATIONS: Thyroid Medications: YES Which medication: LEVOTHYROXINE How Long: APPROX 20 YEARS Additional Medications: LEVOTHYROXINE, FLECAINIDE, ELIQUIS, TAMOXIFEN, CLARITIN, INHALERS NEEDED, Additional History: BREAST CANCER AGE 65 RADIATION WITH ESTROGEN WILBUR EXAM MEASUREMENTS: Bone mineral density about the R hip (g/cm2): 0.717 Bone mineral density about the L hip (g/cm2): 0.711 T Score values are as follows: -----R Neck: -2.3 -----L Neck: -2.4 -----R Total: -2.9 -----L Total: -2.0 Bone mineral density has: DECREASED -11.0 % since study of: 2017 Bone mineral density about the L Wrist (g/cm2): 0.485 T Score values are as follows: -----Dist. R+U: -3.5 -----Prox. R+U: -2.4 -----Radius total: -3.1 FIRST TIME FOR WRIST IMPRESSION: Osteoporosis (T Score less than -2.5). There is increased fracture risk and therapy is usually indicated based on age. Re-Screen 1-2 years. NOTE: T-SCORE=SD OF THE YOUNG ADULT MEAN.
== END | disposition home or self-care (01) ==
LOC: RADBDWWP 09:11
PROVIDERS: ATTEND Obstetrics & Gynecology
DX: M81.8 Other osteoporosis without current pathological fracture (principal); Z78.0 Asymptomatic menopausal state
CPT/HCPCS: 77080

== ENCOUNTER 2020-03-30 06:31 | Emergency (ER) | payer MEDICARE ==
[2020-03-30 06:39] VITALS: TEMP 98
[2020-03-30] MEDS ORDERED: KETOROLAC 15 MG/ML 1 ML VIAL IVP STA (06:46)
--- NOTE | 2020-03-30 06:50 | ED ---
Upper Extremity HPI - General Chief Complaint: Extremity Injury, Upper Stated Complaint: L wrist pain Time Seen by Provider: 03/30/20 06:35 Source: patient Mode of arrival: ambulatory Limitations: no limitations - History of Present Illness Initial Comments: 69yo female presenting for cc of left wrist pain/redness/swelling x 1 day. pt states she struggles with severe arthritis and carpal tunnel. she states in 2019 she had a carpal tunnel release. pt states thsi helped with her chronic left wrist pain but for the past day she has had increased pain and she now has swelling, and noticed some redness. She states she cannot bend the wrist. pt denies fall or known injuries. Patient denies fevers, chills, general malaise. Patient appears well nontoxic on arrival. she is in no distress. Denies chest pain, dyspnea. - Related Data Home Medications Medication Instructions Recorded Confirmed traMADol HCL [Ultram] 50 mg PO TID PRN 03/12/14 03/30/20 diphenhydrAMINE [Benadryl] 25 mg PO BID PRN 11/12/15 03/30/20 Levothyroxine Sodium [Levoxyl] 25 mcg PO DAILY 11/30/15 03/30/20 Tamoxifen Citrate 20 mg PO DAILY 08/10/16 03/30/20 Flecainide Acetate [Tambocor] 100 mg PO Q12HR 03/06/18 03/30/20 Albuterol Sulfate [Proventil Hfa] 1 puff INHALATION RT-Q4H PRN 01/06/20 03/30/20 Apixaban [Eliquis] 5 mg PO BID 01/06/20 03/30/20 Loratadine [Claritin] 10 mg PO DAILY PRN 03/30/20 03/30/20 Previous Rx's Medication Instructions Recorded Cephalexin [Keflex] 500 mg PO Q6HR 7 Days #28 cap 03/30/20 Indomethacin [Indocin] 50 mg PO TID 3 Days #9 capsule 03/30/20 Allergies Allergy/AdvReac Type Severity Reaction Status Date / Time ciprofloxacin [From Cipro] Allergy Rash/Hives Verified 03/30/20 07:58 ciprofloxacin HCl Allergy Rash/Hives Verified 03/30/20 07:58 [From Cipro] fexofenadine HCl Allergy Rash/Hives Verified 03/30/20 07:58 [From Rupinder] amoxicillin [From Augmentin] AdvReac Nausea Verified 03/30/20 07:58 clavulanic acid AdvReac Nausea Verified 03/30/20 07:58 [From Augmentin] Gcsfrxo-Ukw-Nbl Reductase AdvReac muscle Verified 03/30/20 07:58 Inhibitor cramps theophylline anhydrous AdvReac headaches, Verified 03/30/20 07:58 [From Morteza-Dur] N/V Review of Systems ROS Statement: Those systems with pertinent positive or pertinent negative responses have been documented in the HPI. ROS Other: All systems not noted in ROS Statement are negative. Past Medical History Past Medical History: Atrial Fibrillation, Asthma, Cancer, Hypertension, Osteoarthritis (OA), Pneumonia, Thyroid Disorder Additional Past Medical History / Comment(s): SCOLIOSIS, MIGRAINES, HX OF BREAST CANCER WITH SURGERY & RADIATION (2016)., OCCASIONAL VERTIGO., BACK PAIN. 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 History of lichen sclerosis by vulvar biopsy. History of Any Multi-Drug Resistant Organisms: None Reported Past Surgical History: Back Surgery, Breast Surgery, Section Additional Past Surgical History / Comment(s): JACOBO CATARACT SX-LENS IMPLANTS, HAS A GISELLE IN BACK, LOOP RECORDER INSERTION & REMOVAL., LEFT BREAST LUMPECTOMY (10/2015). Carpal tunnel surgery. Colonoscopy 2011 . Past Anesthesia/Blood Transfusion Reactions: No Reported Reaction, Motion Sickness Past Psychological History: No Psychological Hx Reported Smoking Status: Never smoker Past Alcohol Use History: None Reported Past Drug Use History: None Reported - Past Family History Father Family Medical History: Cancer, COPD, Osteoarthritis (OA) Additional Family Medical History / Comment(s): ALCOHOLIC Mother Family Medical History: No Reported History Additional Family Medical History / Comment(s): ALCOHOLIC/SMOKER. Grandmother had colon cancer and a cousin had breast cancer. General Exam - General Exam Comments Initial Comments: General: The patient is awake and alert, in no distress Eye: =3 mm pupils are equal, round and reactive to light, extra-ocular movements are intact. No nystagmus. There is normal conjunctiva bilaterally. No signs of icterus. Cardiovascular: There is a regular rate and rhythm. No murmur, rub or gallop is appreciated. Respiratory: Lungs are clear to auscultation, respirations are non-labored, breath sounds are equal. No wheezes, stridor, rales, or rhonchi. Musculoskeletal: Spft tissue swelling and some lateral aspect swelling left wrist, stiffness/decreased ROM/crepitus.Strength 5/5 of digits distally, refuses to fully strength test wrist. Sensation intact proximal and distal to injury site. Radial pulses equal bilaterally 2+. Neurological: A&O x 3. CN II-XII intact grossly, There are no obvious motor or sensory deficits. Coordination appears grossly intact. Speech is normal. Skin: Skin is warm and dry and no rashes. Psychiatric: Cooperative, appropriate mood & affect, normal judgment. Limitations: no limitations Course Vital Signs 03/30/20 03/30/20 06:34 07:09 Temperature 98.0 F Pulse Rate 87 73 Respiratory 18 18 Rate Blood Pressure 165/89 148/95 O2 Sat by Pulse 97 96 Oximetry Medical Decision Making - Medical Decision Making No leukocytosis blood cultures pending patient afebrile denies constitutional symptoms. Patient has a long-standing history of arthritis x-ray reveals fin dings consistent with this. No acute fractures. NO DEEP VENOUS THROMBOSIS. Patient evaluated by attending provider Dr. Dupont who feels this is most likely related to arthritis/inflammatory process. Given there is some slight redness Dr. Dupont recommend Keflex. Patient is agreeable to care plan and discharge . Return parameters discussed patient agreeable to discharge/care plan - Lab Data Result diagrams: 03/30/20 06:51 03/30/20 06:51 Lab Results 03/30/20 03/30/20 Range/Units 06:51 06:51 WBC 7.3 (3.8-10.6) k/uL RBC 4.43 (3.80-5.40) m/uL Hgb 13.1 (11.4-16.0) gm/dL Hct 39.3 (34.0-46.0) % MCV 88.7 (80.0-100.0) fL MCH 29.6 (25.0-35.0) pg MCHC 33.4 (31.0-37.0) g/dL RDW 14.0 (11.5-15.5) % Plt Count 199 (150-450) k/uL MPV 7.9 Neutrophils % 72 % Lymphocytes % 15 % Monocytes % 6 % Eosinophils % 5 % Basophils % 1 % Neutrophils # 5.2 (1.3-7.7) k/uL Lymphocytes # 1.1 (1.0-4.8) k/uL Monocytes # 0.4 (0-1.0) k/uL Eosinophils # 0.4 (0-0.7) k/uL Basophils # 0.1 (0-0.2) k/uL ESR 9 (0-20) mm/hr Sodium 135 L (137-145) mmol/L Potassium 3.8 (3.5-5.1) mmol/L Chloride 103 (98-107) mmol/L Carbon Dioxide 27 (22-30) mmol/L Anion Gap 5 mmol/L BUN 12 (7-17) mg/dL Creatinine 0.58 (0.52-1.04) mg/dL Est GFR (CKD-EPI)AfAm >90 (>60 ml/min/1.73 sqM) Est GFR (CKD-EPI)NonAf >90 (>60 ml/min/1.73 sqM) Glucose 118 H (74-99) mg/dL Uric Acid 4.5 (3.7-7.4) mg/dL Calcium 8.6 (8.4-10.2) mg/dL Total Bilirubin 0.6 (0.2-1.3) mg/dL AST 19 (14-36) U/L ALT 11 (4-34) U/L Alkaline Phosphatase 55 (38-126) U/L Total Protein 6.5 (6.3-8.2) g/dL Albumin 3.6 (3.5-5.0) g/dL Disposition Clinical Impression: Arthritis, Left wrist pain Disposition: HOME SELF-CARE Condition: Good Instructions (If sedation given, give patient instructions): Rheumatoid Arthritis (ED), Arthritis (ED) Additional Instructions: Please use medication as discussed. Please follow-up with family doctor in the next 2 days, your orthopedic surgeon in next 1-2 days. Please return to emergen cy room if the symptoms increase or worsen or for any other concerns. Prescriptions: Indomethacin [Indocin] 50 mg PO TID 3 Days #9 capsule Cephalexin [Keflex] 500 mg PO Q6HR 7 Days #28 cap Is patient prescribed a controlled substance at d/c from ED?: No Referrals: John Hickey MD [Primary Care Provider] - 1-2 days Time of Disposition: 08:14
[2020-03-30 07:04] LABS: Basophils # (A) 0.1 k/uL (0-0.2); Basophils % (A) 1 %; Eosinophils # (A) 0.4 k/uL (0-0.7); Eosinophils % (A) 5 %; HCT 39.3 % (34.0-46.0); HGB 13.1 gm/dL (11.4-16.0); Lymphocytes # (A) 1.1 k/uL (1.0-4.8); Lymphocytes % (A) 15 %; MCH 29.6 pg (25.0-35.0); MCHC 33.4 g/dL (31.0-37.0); MCV 88.7 fL (80.0-100.0); Mean Platelet Volume 7.9; Monocytes # (A) 0.4 k/uL (0-1.0); Monocytes % (A) 6 %; Neutrophils # (A) 5.2 k/uL (1.3-7.7); Neutrophils % (A) 72 %; Platelet Count 199 k/uL (150-450); RBC 4.43 m/uL (3.80-5.40); WBC 7.3 k/uL (3.8-10.6)
--- NOTE | 2020-03-30 07:04 | XR ---
EXAMINATION TYPE: XR wrist complete LT DATE OF EXAM: 03/30/2020 CLINICAL HISTORY: Redness and swelling. TECHNIQUE: Frontal, lateral and oblique images of the left wrist are obtained. COMPARISON: Left wrist xray April 25, 2019 FINDINGS: There is no acute fracture/dislocation evident in the left wrist. Radial carpal joint spac e loss redemonstrated. There is advanced triscaphe joint space narrowing with joint space sclerosis r edemonstrated. Scattered subchondral cysts redemonstrated. Severe narrowing with bony re-formation at the base of first metacarpal is redemonstrated. Calcification of the triangular fibrocartilage is ag ain seen consistent with chondrocalcinosis. Osseous structures remain demineralized. Narrowing of the lunate capitate relationship with endplate sclerosis redemonstrated. Scapholunate space stable not s uspiciously widened. The overlying soft tissue appears unremarkable. IMPRESSION: As above. No significant change from prior.
[2020-03-30 07:19] LABS: ALT 11 U/L (4-34); AST 19 U/L (14-36); African American GFR (CKD) >90 (>60 ml/min/1.73 sqM); Albumin 3.6 g/dL (3.5-5.0); Alkaline Phosphatase 55 U/L (38-126); Anion Gap 5 mmol/L; Blood Urea Nitrogen 12 mg/dL (7-17); Calcium 8.6 mg/dL (8.4-10.2); Carbon Dioxide 27 mmol/L (22-30); Chloride 103 mmol/L (98-107); Glucose 118 mg/dL (74-99); Non-African American GFR(CKD) >90 (>60 ml/min/1.73 sqM); Potassium 3.8 mmol/L (3.5-5.1); Sodium 135 mmol/L (137-145); Total Bilirubin 0.6 mg/dL (0.2-1.3); Total Protein 6.5 g/dL (6.3-8.2); Uric Acid 4.5 mg/dL (3.7-7.4)
--- NOTE | 2020-03-30 08:05 | US ---
EXAMINATION TYPE: US venous doppler duplex UE LT DATE OF EXAM: 03/30/2020 COMPARISON: NONE CLINICAL HISTORY: left pain. left wrist pain and edema for 2 days SIDE PERFORMED: left Grayscale, color doppler, spectral doppler imaging performed of the deep veins of the upper extremiti es. There is normal flow, compressibility and vascular waveforms within the visualized veins of the left upper extremity including portions of the internal jugular, subclavian, axillary, radial and uln ar veins, brachial vein as well as the basilic and cephalic vein. Left Arm: no evidence of DVT as visualized IMPRESSION: No evident deep venous thrombosis within the left upper extremity
[2020-03-30] MEDS ORDERED: ACET/COD 300 MG/30 MG STARTER PACK 6 TAB BTL PO STA (08:13)
[2020-03-30 08:31] LABS: Erythrocyte Sedimentation Rate 9 mm/hr (0-20)
[2020-03-30 08:38] VITALS: BP 155/89; PULSE 77; RESP 20
[2020-03-30 09:15] LABS: C Reactive Protein 18.8 mg/L (<10.0)
== END 2020-03-30 08:38 | disposition home or self-care (01) ==
LOC: EC 06:31
DX: M19.032 Primary osteoarthritis, left wrist (principal); I48.91 Unspecified atrial fibrillation; J45.909 Unspecified asthma, uncomplicated; I10 Essential (primary) hypertension; M19.90 Unspecified osteoarthritis, unspecified site; E07.9 Disorder of thyroid, unspecified; Z79.01 Long term (current) use of anticoagulants; Z79.890 Hormone replacement therapy; Z79.899 Other long term (current) drug therapy; Z88.0 Allergy status to penicillin; Z88.1 Allergy status to other antibiotic agents; Z88.8 Allergy status to other drugs, medicaments and biological substances; Z98.42 Cataract extraction status, left eye; Z85.3 Personal history of malignant neoplasm of breast; Z98.41 Cataract extraction status, right eye; Z96.1 Presence of intraocular lens; Z80.0 Family history of malignant neoplasm of digestive organs; Z80.3 Family history of malignant neoplasm of breast
CPT/HCPCS: 36415; 80053; 85652; 84550; 85025; 86140; 87040; 73110; 93971; 99284; 96374; J1885

== ENCOUNTER 2020-03-31 08:31 | Emergency (ER) | payer MEDICARE ==
[2020-03-31 08:39] VITALS: PULSE 71; TEMP 98.4
--- NOTE | 2020-03-31 09:07 | ED ---
General Adult HPI - General Chief complaint: Recheck/Abnormal Lab/Rx Stated complaint: abn labs Time Seen by Provider: 03/31/20 08:42 Source: patient Mode of arrival: ambulatory Limitations: no limitations - History of Present Illness Initial comments: Dictation was produced using [employer] dictation software. please excuse any grammatical, word or spelling errors. This patient was cared for during a federal and state declared state of emergency secondary to Covid 19 Chief Complaint: 69-year-old female instructed to come to the emergency department for positive blood cultures History of Present Illness: Patient is 69-year-old female she was seen here in the emergency department yesterday for some erythematous skin rash to the left wrist area. She had blood cultures drawn yesterday and was found to be positive. Preliminary results shows gram-positive cocci. Patient denies any constitutional symptoms. She states she feels well. Patient received prescription for antibiotics yesterday for Keflex. Patient denies any fever, chills or night sweats. She feels well. She states that her left wrist feels much better since yesterday. The ROS documented in this emergency department record has been reviewed and confirmed by me. Those systems with pertinent positive or negative responses have been documented in the HPI. All other systems are other negative and/or noncontributory. PHYSICAL EXAM: General Impression: Alert and oriented x3, not in acute distress HEENT: Normocephalic atraumatic, extra-ocular movements intact, pupils equal and reactive to light bilaterally, mucous membranes moist. Cardiovascular: Heart regular rate and rhythm Chest: Able to complete full sentences, no retractions, no tachypnea Left wrist: Minimal erythema and barely appreciable swelling to the left wrist dorsally measuring approximately 4 x 4 centimeters Abdomen: abdomen soft, non-tender, non-distended, no organomegaly Musculoskeletal: Pulses present and equal in all extremities, no peripheral edema Motor: no focal deficits noted Neurological: CN II-XII grossly intact, no focal motor or sensory deficits noted Skin: Intact with no visualized rashes Psych: Normal affect and mood ED course: 69-year-old female instructed to come to the emergency department for abnormal preliminary blood culture results. Chart review was performed. Patient had preliminary Gram stain that was positive for gram-positive cocci. Patient is asymptomatic. Very unlikely for patient to be bacteremic. Vital signs upon arrival are within acceptable limits. Patient's medications were reviewed.Laboratory evaluation fundi unremarkable. Patient's blood cultures likely contaminated with skin zuly. We did repeat blood culture for confirmation. At this point no indication for any interventions at this time. Return parameters discussed. Patient will be discharged. - Related Data Home Medications Medication Instructions Recorded Confirmed traMADol HCL [Ultram] 50 mg PO TID PRN 03/12/14 03/30/20 diphenhydrAMINE [Benadryl] 25 mg PO BID PRN 11/12/15 03/30/20 Levothyroxine Sodium [Levoxyl] 25 mcg PO DAILY 11/30/15 03/30/20 Tamoxifen Citrate 20 mg PO DAILY 08/10/16 03/30/20 Flecainide Acetate [Tambocor] 100 mg PO Q12HR 03/06/18 03/30/20 Albuterol Sulfate [Proventil Hfa] 1 puff INHALATION RT-Q4H PRN 01/06/20 03/30/20 Apixaban [Eliquis] 5 mg PO BID 01/06/20 03/30/20 Loratadine [Claritin] 10 mg PO DAILY PRN 03/30/20 03/30/20 Previous Rx's Medication Instructions Recorded Cephalexin [Keflex] 500 mg PO Q6HR 7 Days #28 cap 03/30/20 Indomethacin [Indocin] 50 mg PO TID 3 Days #9 capsule 03/30/20 Allergies Allergy/AdvReac Type Severity Reaction Status Date / Time ciprofloxacin [From Cipro] Allergy Rash/Hives Verified 03/31/20 09:41 ciprofloxacin HCl Allergy Rash/Hives Verified 03/31/20 09:41 [From Cipro] fexofenadine HCl Allergy Rash/Hives Verified 03/31/20 09:41 [From Rupinder] amoxicillin [From Augmentin] AdvReac Nausea Verified 03/31/20 09:41 clavulanic acid AdvReac Nausea Verified 03/31/20 09:41 [From Augmentin] Eouefqr-Dhs-Exh Reductase AdvReac muscle Verified 03/31/20 09:41 Inhibitor cramps theophylline anhydrous AdvReac headaches, Verified 03/31/20 09:41 [From Morteza-Dur] N/V Review of Systems ROS Statement: Those systems with pertinent positive or pertinent negative responses have been documented in the HPI. ROS Other: All systems not noted in ROS Statement are negative. Past Medical History Past Medical History: Atrial Fibrillation, Asthma, Cancer, Hypertension, Osteoarthritis (OA), Pneumonia, Thyroid Disorder Additional Past Medical History / Comment(s): SCOLIOSIS, MIGRAINES, HX OF BREAST CANCER WITH SURGERY & RADIATION (2016)., OCCASIONAL VERTIGO., BACK PAIN. 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 History of lichen sclerosis by vulvar biopsy. History of Any Multi-Drug Resistant Organisms: None Reported Past Surgical History: Back Surgery, Breast Surgery, Section Additional Past Surgical History / Comment(s): JACOBO CATARACT SX-LENS IMPLANTS, HAS A GISELLE IN BACK, LOOP RECORDER INSERTION & REMOVAL., LEFT BREAST LUMPECTOMY (10/2015). Carpal tunnel surgery. Colonoscopy 2011 . Past Anesthesia/Blood Transfusion Reactions: No Reported Reaction, Motion Sickness Past Psychological History: No Psychological Hx Reported Smoking Status: Never smoker Past Alcohol Use History: None Reported Past Drug Use History: None Reported - Past Family History Father Family Medical History: Cancer, COPD, Osteoarthritis (OA) Additional Family Medical History / Comment(s): ALCOHOLIC Mother Family Medical History: No Reported History Additional Family Medical History / Comment(s): ALCOHOLIC/SMOKER. Grandmother had colon cancer and a cousin had breast cancer. General Exam Limitations: no limitations Course Vital Signs 03/31/20 08:36 Temperature 98.4 F Pulse Rate 71 Respiratory 16 Rate Blood Pressure 162/92 O2 Sat by Pulse 98 Oximetry Medical Decision Making - Lab Data Result diagrams: 03/31/20 09:13 03/31/20 09:13 Lab Results 03/31/20 03/31/20 Range/Units 09:13 09:13 WBC 5.4 (3.8-10.6) k/uL RBC 4.65 (3.80-5.40) m/uL Hgb 13.0 (11.4-16.0) gm/dL Hct 42.5 (34.0-46.0) % MCV 91.3 (80.0-100.0) fL MCH 27.9 (25.0-35.0) pg MCHC 30.6 L (31.0-37.0) g/dL RDW 14.8 (11.5-15.5) % Plt Count 213 (150-450) k/uL MPV 8.0 Neutrophils % 72 % Lymphocytes % 15 % Monocytes % 5 % Eosinophils % 6 % Basophils % 1 % Neutrophils # 3.9 (1.3-7.7) k/uL Lymphocytes # 0.8 L (1.0-4.8) k/uL Monocytes # 0.3 (0-1.0) k/uL Eosinophils # 0.3 (0-0.7) k/uL Basophils # 0.1 (0-0.2) k/uL Hypochromasia Slight Sodium 135 L (137-145) mmol/L Potassium 4.1 (3.5-5.1) mmol/L Chloride 102 (98-107) mmol/L Carbon Dioxide 30 (22-30) mmol/L Anion Gap 3 mmol/L BUN 11 (7-17) mg/dL Creatinine 0.60 (0.52-1.04) mg/dL Est GFR (CKD-EPI)AfAm >90 (>60 ml/min/1.73 sqM) Est GFR (CKD-EPI)NonAf >90 (>60 ml/min/1.73 sqM) Glucose 104 H (74-99) mg/dL Calcium 8.7 (8.4-10.2) mg/dL Disposition Clinical Impression: Positive blood culture Disposition: HOME SELF-CARE Condition: Fair Instructions (If sedation given, give patient instructions): Bacteremia (ED) Additional Instructions: There is strong suspicion that your blood cultures were contaminated by skin contamination. It is highly unlikely that your suffering from bacteremia. However she develop symptoms of fever, chills night sweats, malaise to seek medical attention immediately. Repeat blood cultures were obtained to confirm the diagnosis of possible bacteremia. Be on the lookout for final blood culture results and for results from second blood culture draw. Is patient prescribed a controlled substance at d/c from ED?: No Referrals: John Hickey MD [Primary Care Provider] - 1-2 days Time of Disposition: 09:48
[2020-03-31 09:30] LABS: Basophils # (A) 0.1 k/uL (0-0.2); Basophils % (A) 1 %; Eosinophils # (A) 0.3 k/uL (0-0.7); Eosinophils % (A) 6 %; HCT 42.5 % (34.0-46.0); Hypochromasia Slight; Lymphocytes # (A) 0.8 k/uL (1.0-4.8); Lymphocytes % (A) 15 %; MCH 27.9 pg (25.0-35.0); MCHC 30.6 g/dL (31.0-37.0); MCV 91.3 fL (80.0-100.0); Monocytes # (A) 0.3 k/uL (0-1.0); Monocytes % (A) 5 %; Neutrophils # (A) 3.9 k/uL (1.3-7.7); Neutrophils % (A) 72 %; Platelet Count 213 k/uL (150-450); RBC 4.65 m/uL (3.80-5.40); RDW 14.8 % (11.5-15.5); WBC 5.4 k/uL (3.8-10.6)
[2020-03-31 09:41] LABS: African American GFR (CKD) >90 (>60 ml/min/1.73 sqM); Anion Gap 3 mmol/L; Blood Urea Nitrogen 11 mg/dL (7-17); Calcium 8.7 mg/dL (8.4-10.2); Carbon Dioxide 30 mmol/L (22-30); Chloride 102 mmol/L (98-107); Glucose 104 mg/dL (74-99); Non-African American GFR(CKD) >90 (>60 ml/min/1.73 sqM); Potassium 4.1 mmol/L (3.5-5.1); Sodium 135 mmol/L (137-145)
[2020-03-31 10:36] VITALS: RESP 18
[2020-03-31 10:37] VITALS: BP 151/87
== END 2020-03-31 10:15 | disposition home or self-care (01) ==
LOC: EC 08:31
DX: R78.81 Bacteremia (principal); J45.909 Unspecified asthma, uncomplicated; E07.9 Disorder of thyroid, unspecified; M54.9 Dorsalgia, unspecified; I48.91 Unspecified atrial fibrillation; C50.912 Malignant neoplasm of unspecified site of left female breast; Z79.01 Long term (current) use of anticoagulants; Z79.899 Other long term (current) drug therapy; Z79.890 Hormone replacement therapy; Z88.1 Allergy status to other antibiotic agents; Z88.0 Allergy status to penicillin; Z88.8 Allergy status to other drugs, medicaments and biological substances
CPT/HCPCS: 36415; 80048; 85025; 87040; 99282

== ENCOUNTER 2020-04-01 00:36 | Inpatient (IN) | payer MEDICARE ==
--- NOTE | 2020-04-01 01:13 | ED ---
Recheck HPI - General Chief Complaint: Recheck/Abnormal Lab/Rx Stated Complaint: Abnormal Labs Time Seen by Provider: 04/01/20 00:44 Source: patient, RN notes reviewed, old records reviewed Mode of arrival: ambulatory - History of Present Illness Initial Comments: This is a 69-year-old female DF for evaluation she Dese for another recheck. Patient said multiple DF visits the last few days of both resulted in positive blood cultures. Patient denying any real constitutional symptoms she did have left wrist swelling and edema deemed cellulitis place on antibiotics and does h ave improvement in the left first swelling edema and redness. Patient states she otherwise feels relatively normal. No recent travel history no known sick contacts. Patient was again read encouraged to come to the ER because of findings on her blood cultures MD Complaint: abnormal lab (Positive blood cultures) -: days(s) (3) Returns Today for: Called Because of Abnormal Lab/Test, other (No real new complaints) Symptoms Since Prior Visit: no new symptoms Context: called for abnormal lab result Associated Symptoms: none - Related Data Home Medications Medication Instructions Recorded Confirmed traMADol HCL [Ultram] 50 mg PO TID PRN 03/12/14 03/31/20 diphenhydrAMINE [Benadryl] 25 mg PO BID PRN 11/12/15 03/31/20 Levothyroxine Sodium [Levoxyl] 25 mcg PO DAILY 11/30/15 03/31/20 Tamoxifen Citrate 20 mg PO DAILY 08/10/16 03/31/20 Flecainide Acetate [Tambocor] 100 mg PO Q12HR 03/06/18 03/31/20 Albuterol Sulfate [Proventil Hfa] 1 puff INHALATION RT-Q4H PRN 01/06/20 03/31/20 Apixaban [Eliquis] 5 mg PO BID 01/06/20 03/31/20 Loratadine [Claritin] 10 mg PO DAILY 03/30/20 03/31/20 Previous Rx's Medication Instructions Recorded Cephalexin [Keflex] 500 mg PO Q6HR 7 Days #28 cap 03/30/20 Indomethacin [Indocin] 50 mg PO TID 3 Days #9 capsule 03/30/20 Allergies Allergy/AdvReac Type Severity Reaction Status Date / Time ciprofloxacin [From Cipro] Allergy Rash/Hives Verified 04/01/20 00:41 ciprofloxacin HCl Allergy Rash/Hives Verified 04/01/20 00:41 [From Cipro] fexofenadine HCl Allergy Rash/Hives Verified 04/01/20 00:41 [From Rupinder] amoxicillin [From Augmentin] AdvReac Nausea Verified 04/01/20 00:41 clavulanic acid AdvReac Nausea Verified 04/01/20 00:41 [From Augmentin] Lyetcuy-Csj-Dss Reductase AdvReac muscle Verified 04/01/20 00:41 Inhibitor cramps theophylline anhydrous AdvReac headaches, Verified 04/01/20 00:41 [From Morteza-Dur] N/V Review of Systems ROS Statement: Those systems with pertinent positive or pertinent negative responses have been documented in the HPI. ROS Other: All systems not noted in ROS Statement are negative. Past Medical History Past Medical History: Atrial Fibrillation, Asthma, Cancer, Hypertension, Osteoarthritis (OA), Pneumonia, Thyroid Disorder Additional Past Medical History / Comment(s): SCOLIOSIS, MIGRAINES, HX OF BREAST CANCER WITH SURGERY & RADIATION (2016)., OCCASIONAL VERTIGO., BACK PAIN. 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 History of lichen sclerosis by vulvar biopsy. History of Any Multi-Drug Resistant Organisms: None Reported Past Surgical History: Back Surgery, Breast Surgery, Section Additional Past Surgical History / Comment(s): JACOBO CATARACT SX-LENS IMPLANTS, HAS A GISELLE IN BACK, LOOP RECORDER INSERTION & REMOVAL., LEFT BREAST LUMPECTOMY (10/2015). Carpal tunnel surgery. Colonoscopy 2011 . Past Anesthesia/Blood Transfusion Reactions: No Reported Reaction, Motion Sickness Past Psychological History: No Psychological Hx Reported Smoking Status: Never smoker Past Alcohol Use History: None Reported Past Drug Use History: None Reported - Past Family History Father Family Medical History: Cancer, COPD, Osteoarthritis (OA) Additional Family Medical History / Comment(s): ALCOHOLIC Mother Family Medical History: No Reported History Additional Family Medical History / Comment(s): ALCOHOLIC/SMOKER. Grandmother had colon cancer and a cousin had breast cancer. General Exam General appearance: alert, in no apparent distress Head exam: Present: atraumatic, normocephalic, normal inspection Eye exam: Present: normal appearance, PERRL, EOMI. Absent: scleral icterus, conjunctival injection, periorbital swelling ENT exam: Present: normal exam, mucous membranes moist Neck exam: Present: normal inspection. Absent: tenderness, meningismus, lymphadenopathy Respiratory exam: Present: normal lung sounds bilaterally. Absent: respiratory distress, wheezes, rales, rhonchi, stridor Cardiovascular Exam: Present: regular rate, normal rhythm, normal heart sounds. Absent: systolic murmur, diastolic murmur, rubs, gallop, clicks GI/Abdominal exam: Present: soft, normal bowel sounds. Absent: distended, tenderness, guarding, rebound, rigid Extremities exam: Present: normal inspection, full ROM, normal capillary refill, other (Left wrist edema and redness which is improving). Absent: tenderness, pedal edema, joint swelling, calf tenderness Back exam: Present: normal inspection Neurological exam: Present: alert, oriented X3, CN II-XII intact Psychiatric exam: Present: normal affect, normal mood Skin exam: Present: warm, dry, intact, normal color. Absent: rash Course Vital Signs 04/01/20 00:38 Temperature 98 F Pulse Rate 70 Respiratory 19 Rate Blood Pressure 192/100 O2 Sat by Pulse 98 Oximetry - Reevaluation(s) Reevaluation #1: 04/01/20 01:41 Medical record is reviewed 04/01/20 01:41 Multiple prior ER visits are reviewed Reevaluation #2: 04/01/20 01:41 Patient's prior blood cultures are reviewed with 3 different positive organisms Reevaluation #3: 04/01/20 01:41 Patient informed of results, questions answered here in the ER, she remains without complaint Medical Decision Making - Medical Decision Making 69 female DF for evaluation, patient has positive blood cultures admitted to rule out significant bacteremia, polymicrobial bacteremia. Patient be seen by infectious disease - EKG Data -: EKG Interpreted by Me (EKG shows sinus bradycardia 5980 QRS 96 QTc 433) Disposition Clinical Impression: Weakness, Left wrist pain, Positive blood culture Disposition: ADMITTED IP TO THIS HOSP Condition: Good Is patient prescribed a controlled substance at d/c from ED?: No Referrals: John Hickey MD [Primary Care Provider] - 1-2 days
[2020-04-01] MEDS ORDERED: ONDANSETRON 4 MG/2 ML VIAL IVP PRN (01:37)
[2020-04-01] MEDS ORDERED: NALOXONE 0.4 MG/ML 1 ML VIAL IV PRN (01:37)
[2020-04-01] MEDS ORDERED: SODIUM CHLORIDE 0.9% 1,000 ML IV STA ×2 (01:38)
[2020-04-01 02:32] LABS: Basophils % (A) 1 %; Eosinophils # (A) 0.3 k/uL (0-0.7); Eosinophils % (A) 4 %; HCT 39.2 % (34.0-46.0); HGB 12.4 gm/dL (11.4-16.0); Lymphocytes # (A) 1.3 k/uL (1.0-4.8); Lymphocytes % (A) 22 %; MCH 28.3 pg (25.0-35.0); MCHC 31.7 g/dL (31.0-37.0); MCV 89.2 fL (80.0-100.0); Mean Platelet Volume 8.2; Monocytes # (A) 0.3 k/uL (0-1.0); Monocytes % (A) 5 %; Neutrophils # (A) 3.7 k/uL (1.3-7.7); Neutrophils % (A) 64 %; Platelet Count 223 k/uL (150-450); RBC 4.39 m/uL (3.80-5.40); RDW 13.9 % (11.5-15.5); WBC 5.8 k/uL (3.8-10.6)
[2020-04-01 02:36] LABS: Appearance,Urine Cloudy (Clear); Bacteria,Urine Occasional /hpf; Bilirubin,Urine Negative (Negative); Blood,Urine Trace (Negative); Color,Urine Yellow; Glucose,Urine (UA) Negative (Negative); Ketones,Urine Negative (Negative); Leukocyte Esterase,Urine Large (Negative); Mucus,Urine Occasional /hpf; Nitrite,Urine Negative (Negative); Protein,Urine Negative (Negative); RBC,Urine 4 /hpf (0-5); Squamous Epithelial Cell,Urine 8 /hpf (0-4); WBC,Urine 57 /hpf (0-5)
[2020-04-01 02:46] LABS: ALT 9 U/L (4-34); AST 18 U/L (14-36); African American GFR (CKD) >90 (>60 ml/min/1.73 sqM); Albumin 3.3 g/dL (3.5-5.0); Alkaline Phosphatase 58 U/L (38-126); Anion Gap 3 mmol/L; Blood Urea Nitrogen 15 mg/dL (7-17); Calcium 8.5 mg/dL (8.4-10.2); Carbon Dioxide 28 mmol/L (22-30); Chloride 104 mmol/L (98-107); Creatine Kinase 52 U/L (30-135); Glucose 123 mg/dL (74-99); Magnesium 1.9 mg/dL (1.6-2.3); Non-African American GFR(CKD) >90 (>60 ml/min/1.73 sqM); Potassium 4.3 mmol/L (3.5-5.1); Sodium 135 mmol/L (137-145); Total Bilirubin 0.4 mg/dL (0.2-1.3); Total Protein 6.2 g/dL (6.3-8.2)
--- NOTE | 2020-04-01 02:52 | XR ---
EXAM: XR Chest, 2 Views CLINICAL HISTORY: Weakness TECHNIQUE: Frontal and lateral views of the chest. COMPARISON: No relevant prior studies available. FINDINGS: Lungs: Unremarkable. Pleural space: Unremarkable. Heart: Unremarkable. Mediastinum: Unremarkable. Bones/joints: Scoliosis of the spine with orthopedic jenny noted. IMPRESSION: No acute findings in the chest.
[2020-04-01] MEDS ORDERED: traMADol 50 MG TAB PO PRN (08:05)
[2020-04-01] MEDS ORDERED: ALBUTEROL NEBULIZED 2.5 MG/3 ML INHALATION PRN (08:05)
[2020-04-01] MEDS ORDERED: IOPAMIDOL CONTRAST (ORAL USE) VIAL PO PRN ×2 (08:08→08:14)
--- NOTE | 2020-04-01 09:33 | P.HPIM ---
History of Present Illness 69-year-old pleasant female was admitted after she was called back for positive blood cultures. Blood cultures were polymicrobial although significant for gram-negative bacilli. Patient denied any symptoms of urinary tract infection including dysuria suprapubic pain doesn't have any fever chills doesn't have any leukocytosis repeat blood cultures were obtained. Patient was having some vague mild sharp abdominal pain in the left lower quadrant because of which I'm obtaining a CT of the abdomen because of gram-negative bacteremia. Patient still has her gallbladder. Patient was seen in ER couple days ago when she had pain swelling and redness in the left wrist and was diagnosed with inflammatory arthritis subsequently discharged home and was given Keflex. Patient has been taking Keflex. Urine analysis is mildly abnormal Review of Systems REVIEW OF SYSTEMS: CONSTITUTIONAL: No fever, no malaise, no fatigue. HEENT: No recent visual problems or hearing problems. Denied any sore throat. CARDIOVASCULAR: No chest pain, orthopnea, PND, no palpitations, no syncope. PULMONARY: No shortness of breath, no cough, no hemoptysis. GASTROINTESTINAL: No diarrhea, no nausea, no vomiting, no abdominal pain. NEUROLOGICAL: No headaches, no weakness, no numbness. HEMATOLOGICAL: Denies any bleeding or petechiae. GENITOURINARY: Denies any burning micturition, frequency, or urgency. MUSCULOSKELETAL/RHEUMATOLOGICAL: Denies any joint pain, swelling, or any muscle pain. ENDOCRINE: Denies any polyuria or polydipsia. The rest of the 14-point review of systems is negative. Past Medical History Past Medical History: Atrial Fibrillation, Asthma, Cancer, Hypertension, Osteoarthritis (OA), Pneumonia, Thyroid Disorder Additional Past Medical History / Comment(s): SCOLIOSIS, MIGRAINES, HX OF BREAST CANCER WITH SURGERY & RADIATION (2016)., OCCASIONAL VERTIGO., BACK PAIN. 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 History of lichen sclerosis by vulvar biopsy. History of Any Multi-Drug Resistant Organisms: None Reported Past Surgical History: Back Surgery, Breast Surgery, Section Additional Past Surgical History / Comment(s): JACOBO CATARACT SX-LENS IMPLANTS, HAS A GISELLE IN BACK, LOOP RECORDER INSERTION & REMOVAL., LEFT BREAST LUMPECTOMY (10/2015). Carpal tunnel surgery. Colonoscopy 2011 . Past Anesthesia/Blood Transfusion Reactions: No Reported Reaction, Motion Sickness Past Psychological History: No Psychological Hx Reported Smoking Status: Never smoker Past Alcohol Use History: None Reported Past Drug Use History: None Reported - Past Family History Father Family Medical History: Cancer, COPD, Osteoarthritis (OA) Additional Family Medical History / Comment(s): ALCOHOLIC Mother Family Medical History: No Reported History Additional Family Medical History / Comment(s): ALCOHOLIC/SMOKER. Grandmother had colon cancer and a cousin had breast cancer. Medications and Allergies Home Medications Medication Instructions Recorded Confirmed Type traMADol HCL [Ultram] 50 mg PO TID PRN 03/12/14 04/01/20 History diphenhydrAMINE [Benadryl] 25 mg PO BID PRN 11/12/15 04/01/20 History Levothyroxine Sodium [Levoxyl] 25 mcg PO DAILY 11/30/15 04/01/20 History Tamoxifen Citrate 20 mg PO DAILY 08/10/16 04/01/20 History Flecainide Acetate [Tambocor] 100 mg PO Q12HR 03/06/18 04/01/20 History Albuterol Sulfate [Proventil Hfa] 1 puff INHALATION RT-Q4H PRN 01/06/20 04/01/20 History Apixaban [Eliquis] 5 mg PO BID 01/06/20 04/01/20 History Cephalexin [Keflex] 500 mg PO Q6HR 7 Days #28 cap 03/30/20 04/01/20 Rx Indomethacin [Indocin] 50 mg PO TID 3 Days #9 capsule 03/30/20 04/01/20 Rx Loratadine [Claritin] 10 mg PO DAILY 03/30/20 04/01/20 History Allergies Allergy/AdvReac Type Severity Reaction Status Date / Time ciprofloxacin [From Cipro] Allergy Rash/Hives Verified 04/01/20 06:43 ciprofloxacin HCl Allergy Rash/Hives Verified 04/01/20 06:43 [From Cipro] fexofenadine HCl Allergy Rash/Hives Verified 04/01/20 06:43 [From Rupinder] amoxicillin [From Augmentin] AdvReac Nausea Verified 04/01/20 06:43 clavulanic acid AdvReac Nausea Verified 04/01/20 06:43 [From Augmentin] Fvazfby-Ong-Twx Reductase AdvReac muscle Verified 04/01/20 06:43 Inhibitor cramps theophylline anhydrous AdvReac headaches, Verified 04/01/20 06:43 [From Morteza-Dur] N/V Physical Exam Vitals: Vital Signs Temp Pulse Resp BP Pulse Ox 04/01/20 02:56 64 18 168/98 98 04/01/20 00:38 98 F 70 19 192/100 98 Intake and Output 03/31/20 04/01/20 04/01/20 22:59 06:59 14:59 Other: Weight 54.885 kg PHYSICAL EXAMINATION: GENERAL: The patient is alert and oriented x3, not in any acute distress. Well developed, well nourished. HEENT: Pupils are round and equally reacting to light. EOMI. No scleral icterus. No conjunctival pallor. Normocephalic, atraumatic. No pharyngeal erythema. No thyromegaly. CARDIOVASCULAR: S1 and S2 present. No murmurs, rubs, or gallops. PULMONARY: Chest is clear to auscultation, no wheezing or crackles. ABDOMEN: Soft, nontender, nondistended, normoactive bowel sounds. No palpable organomegaly. MUSCULOSKELETAL: Swelling in the left wrist which appears to have improved . EXTREMITIES: No cyanosis, clubbing, or pedal edema. NEUROLOGICAL: Gross neurological examination did not reveal any focal deficits. SKIN: No rashes. Results CBC & Chem 7: 04/01/20 02:10 04/01/20 02:10 Labs: Abnormal Lab Results - Last 24 Hours (Table) 04/01/20 04/01/20 Range/Units 02:10 02:10 Sodium 135 L (137-145) mmol/L Glucose 123 H (74-99) mg/dL Total Protein 6.2 L (6.3-8.2) g/dL Albumin 3.3 L (3.5-5.0) g/dL Urine Appearance Cloudy H (Clear) Urine Blood Trace H (Negative) Ur Leukocyte Esterase Large H (Negative) Urine WBC 57 H (0-5) /hpf Ur Squamous Epith Cells 8 H (0-4) /hpf Urine Bacteria Occasional H (None) /hpf Urine Mucus Occasional H (None) /hpf Assessment and Plan Plan: -Bacteremia: Patient has a gram-negative bacilli in the blood which is a significant not a contamination. We'll repeat the blood cultures again. Patie nt will be continued on Rocephin 2 g daily infectious disease was consulted possible sources being a urinary tract infection or intra-abdominal source considering her abdominal pain and some tenderness in the left lower quadrant will obtain a CT of the abdomen. If that's negative patient may need ultrasound of the gallbladder but the decision will be up to infectious disease. -Proximal atrial fibrillation presently rate controlled continue with the her home medications and anticoagulation -Hypothyroidism continue with levothyroxine -History of breast cancer on hormonal therapy which will be continued -Hypertension -Asthma without any acute exacerbation
[2020-04-01] MEDS: APIXABAN 5 MG TAB PO SCH ×2 (10:16→21:49)
[2020-04-01] MEDS: FAMOTIDINE 20 MG TAB PO SCH ×2 (10:16→21:47)
[2020-04-01] MEDS: LORATADINE 10 MG TAB PO SCH (10:17)
[2020-04-01] MEDS: FLECAINIDE 50 MG TAB PO SCH ×2 (10:22→21:49)
[2020-04-01] MEDS: TAMOXIFEN 10 MG TAB PO SCH (10:25)
[2020-04-01] MEDS: INDOMETHACIN 25 MG CAP PO SCH ×3 (10:33→21:48)
[2020-04-01] MEDS: LEVOTHYROXINE 25 MCG TAB PO SCH (10:57)
--- NOTE | 2020-04-01 11:05 | CT ---
EXAMINATION TYPE: CT abdomen pelvis wo con DATE OF EXAM: 04/01/2020 HISTORY: Diverticulitis, pain and fever. CT DLP: 404 mGycm. Automated Exposure Control for Dose Reduction was Utilized. TECHNIQUE: CT scan of the abdomen and pelvis is performed with oral but without IV contrast. COMPARISON: NONE FINDINGS: Within the limitations of a non-contrast study, the following observations are made. LUNG BASES: Mild cardiomegaly. LIVER/GB: There is thin-walled 1.6 cm cyst in the liver axial image 23. Additional scattered subcenti meter hypodense lesions too small to further characterize presumed benign. Gallbladder has distended margins with small dependent stones and/or gallbladder sludge and larger 10 mm hyperdense gallstone. No surrounding inflammatory change. PANCREAS: No significant abnormality is seen. SPLEEN: No significant abnormality is seen. ADRENALS: No significant abnormality is seen. KIDNEYS: No renal stones identified bilaterally. Possible extrarenal pelvis. BOWEL: Oral contrast extends to the hepatic flexure. Evaluation of distal bowel slightly suboptimal. No suspicious small or large bowel dilatation. Diverticulosis in sigmoid colon. No convincing CT evid ence for acute diverticulitis. Large 4.9 cm duodenal diverticulum second portion coronal image 34. Un derlying malrotation as duodenum extends or stays within the right abdomen without crossing the midli ne. GENITAL ORGANS: Anteverted uterus.. There is arcuate type configuration on axial image 61. Few scatte red bilateral pelvic phleboliths. LYMPH NODES: No greater than 1cm abdominal or pelvic lymph nodes are appreciated. OSSEOUS STRUCTURES: Long segment Jc jenny is partially imaged. There is dextroconvex scoliosis centered in lower thoracic spine. OTHER: Small fat-containing umbilical hernia. IMPRESSION: Suboptimal study. Sigmoid colonic diverticulosis without convincing CT evidence for acute diverticulitis.
--- NOTE | 2020-04-01 12:41 | P.CONS ---
History of Present Illness - Reason for Consult Consult date: 04/01/20 - History of Present Illness HISTORY OF PRESENT ILLNESS This is a 69-year-old female with past medical history of breast cancer status post lumpectomy and radiation in 2016, hypertension, osteoarthritis, paroxysmal atrial fibrillation. Patient gives history that she initially presented to the emergency center on Sunday due to swelling in her hand and wrist that started on Sunday. X-rays were negative for fracture and ultrasound negative for DVT. Patient was discharged home on Keflex for possible cellulitis. Patient states this swelling and redness were improved by Sunday evening. She denies any chest pain, no shortness of breath. No fever or chills. She does state she has a little tenderness in the right upper quadrant. She has some unsettling feeling in her stomach after she eats that started on Sunday. Patient was contacted regarding positive blood cultures and return to the emergency center on Sunday. There was a strong suspicion blood cultures were contamination and repeat blood cultures were obtained and patient was discharged home to continue Keflex. Patient then returned on for recheck. She was then admitted to the [facility] floor and ID consult was obtained. Patient has been afebrile. White count has been normal. Urinalysis reveals leukoesterase large, WBCs 57, squamous cells 8. Coronavirus PCR not detected. Initial blood culture from March 30 revealed gram-positive cocci in chains, gram-positive bacilli, gram-negative rods. Repeat blood culture was obtained on her second ER visit on March 31 is showing no growth at 24 hours. Blood culture x2 status received from April 01. Urine culture is in progress. REVIEW OF SYSTEMS Constitutional: No fever, no chills, no night sweats. No weight change. No weakness, fatigue or lethargy. EENT: No headache. No nasal drainage or congestion. No epistaxis. No sore throat. Lungs: No shortness of breath, cough, no sputum production. No wheezing. Cardiovascular: No chest pain, no lower extremity edema. No lightheadedness or dizziness. No syncopal episodes. Abdominal: No abdominal pain. No nausea, vomiting. No diarrhea. No constipation. No loss of appetite. Genitourinary: No dysuria, increased frequency, urgency. No urinary retention. Musculoskeletal: No myalgias. No muscle weakness. Integumentary: No wounds, no lesions. No rash or pruritus. Erythema and swelling left hand, improved Neurologic: No aphasia. No facial droop. No change in mentation. Endocrine: No abnormal blood sugars. PHYSICAL EXAMINATION Gen: This is a 69-year-old female. She is resting in bed appears to be comfortable. VS: Afebrile, heart rate 72, blood pressure 148/87, pulse ox 95% on room air HEENT: Head is atraumatic, normocephalic. Pupils equal, round. Sclerae is anicteric. NECK: Supple. No JVD. No lymphadenopathy. No thyromegaly. LUNGS: Clear to auscultation. No wheezes or rhonchi. No intercostal retractions. HEART: Regular rate and rhythm. No murmur. ABDOMEN: Soft. Bowel sounds are present. No masses. Mild right upper quadrant tenderness. EXTREMITIES: No pedal edema. No calf tenderness. NEUROLOGICAL: Patient is awake, alert and oriented x3. Cranial nerves 2 through 12 are grossly intact. ASSESSMENT Positive blood culture most likely contamination UTI Cellulitis of the left hand, resolving PLAN Continue Rocephin 2 g daily Follow up on repeat blood cultures Follow up on urine culture Further recommendations based upon patient's clinical progress Continue supportive care. Thank you kindly for this consultation. The above dictated assessment and findings were discussed with Dr. Balderas. The impression and plan of care have been directed as dictated. Pretty Moreira nurse practitioner acting as scribe for Dr. Balderas. Past Medical History Past Medical History: Atrial Fibrillation, Asthma, Cancer, Hypertension, Osteoa rthritis (OA), Pneumonia, Thyroid Disorder Additional Past Medical History / Comment(s): SCOLIOSIS, MIGRAINES, HX OF BREAST CANCER WITH SURGERY & RADIATION (2016)., OCCASIONAL VERTIGO., BACK PAIN. 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 History of lichen sclerosis by vulvar biopsy. History of Any Multi-Drug Resistant Organisms: None Reported Past Surgical History: Back Surgery, Breast Surgery, Section Additional Past Surgical History / Comment(s): JACOBO CATARACT SX-LENS IMPLANTS, HAS A GISELLE IN BACK, LOOP RECORDER INSERTION & REMOVAL., LEFT BREAST LUMPECTOMY (10/2015). Carpal tunnel surgery. Colonoscopy 2011 . Past Anesthesia/Blood Transfusion Reactions: No Reported Reaction, Motion Sickness Past Psychological History: No Psychological Hx Reported Smoking Status: Never smoker Past Alcohol Use History: None Reported Past Drug Use History: None Reported - Past Family History Father Family Medical History: Cancer, COPD, Osteoarthritis (OA) Additional Family Medical History / Comment(s): ALCOHOLIC Mother Family Medical History: No Reported History Additional Family Medical History / Comment(s): ALCOHOLIC/SMOKER. Grandmother had colon cancer and a cousin had breast cancer. Medications and Allergies Home Medications Medication Instructions Recorded Confirmed Type traMADol HCL [Ultram] 50 mg PO TID PRN 03/12/14 04/01/20 History diphenhydrAMINE [Benadryl] 25 mg PO BID PRN 11/12/15 04/01/20 History Levothyroxine Sodium [Levoxyl] 25 mcg PO DAILY 11/30/15 04/01/20 History Tamoxifen Citrate 20 mg PO DAILY 08/10/16 04/01/20 History Flecainide Acetate [Tambocor] 100 mg PO Q12HR 03/06/18 04/01/20 History Albuterol Sulfate [Proventil Hfa] 1 puff INHALATION RT-Q4H PRN 01/06/20 04/01/20 History Apixaban [Eliquis] 5 mg PO BID 01/06/20 04/01/20 History Cephalexin [Keflex] 500 mg PO Q6HR 7 Days #28 cap 03/30/20 04/01/20 Rx Indomethacin [Indocin] 50 mg PO TID 3 Days #9 capsule 03/30/20 04/01/20 Rx Loratadine [Claritin] 10 mg PO DAILY 03/30/20 04/01/20 History Allergies Allergy/AdvReac Type Severity Reaction Status Date / Time ciprofloxacin [From Cipro] Allergy Rash/Hives Verified 04/01/20 06:43 ciprofloxacin HCl Allergy Rash/Hives Verified 04/01/20 06:43 [From Cipro] fexofenadine HCl Allergy Rash/Hives Verified 04/01/20 06:43 [From Rupinder] amoxicillin [From Augmentin] AdvReac Nausea Verified 04/01/20 06:43 clavulanic acid AdvReac Nausea Verified 04/01/20 06:43 [From Augmentin] Xpuxrsw-Sed-Eyn Reductase AdvReac muscle Verified 04/01/20 06:43 Inhibitor cramps theophylline anhydrous AdvReac headaches, Verified 04/01/20 06:43 [From Morteza-Dur] N/V Physical Exam Vitals: Vital Signs Temp Pulse Resp BP Pulse Ox 04/01/20 02:56 64 18 168/98 98 04/01/20 00:38 98 F 70 19 192/100 98 Intake and Output 03/31/20 04/01/20 04/01/20 22:59 06:59 14:59 Other: Weight 54.885 kg Results CBC & Chem 7: 04/01/20 02:10 04/01/20 02:10 Labs: Abnormal Lab Results - Last 24 Hours (Table) 04/01/20 04/01/20 Range/Units 02:10 02:10 Sodium 135 L (137-145) mmol/L Glucose 123 H (74-99) mg/dL Total Protein 6.2 L (6.3-8.2) g/dL Albumin 3.3 L (3.5-5.0) g/dL Urine Appearance Cloudy H (Clear) Urine Blood Trace H (Negative) Ur Leukocyte Esterase Large H (Negative) Urine WBC 57 H (0-5) /hpf Ur Squamous Epith Cells 8 H (0-4) /hpf Urine Bacteria Occasional H (None) /hpf Urine Mucus Occasional H (None) /hpf
[2020-04-02] MEDS: FAMOTIDINE 20 MG TAB PO SCH ×2 (08:06→20:31)
[2020-04-02] MEDS: INDOMETHACIN 25 MG CAP PO SCH ×2 (08:07→18:29)
[2020-04-02] MEDS: FLECAINIDE 50 MG TAB PO SCH ×2 (08:08→20:31)
[2020-04-02] MEDS: LEVOTHYROXINE 25 MCG TAB PO SCH (08:08)
[2020-04-02] MEDS: LORATADINE 10 MG TAB PO SCH (08:09)
[2020-04-02] MEDS: TAMOXIFEN 10 MG TAB PO SCH (08:58)
[2020-04-02] MEDS: APIXABAN 5 MG TAB PO SCH ×2 (08:59→20:56)
[2020-04-02 10:09] LABS: Basophils # (A) 0.06 X 10*3/uL (0.00-0.10); Eosinophils # (A) 0.29 X 10*3/uL (0.04-0.35); Eosinophils % (A) 4.7 %; HCT 39.3 % (37.2-46.3); HGB 12.3 g/dL (12.0-15.0); Lymphocytes # (A) 1.12 X 10*3/uL (0.90-5.00); Lymphocytes % (A) 18.3 %; MCH 28.5 pg (27.0-32.0); MCHC 31.3 g/dL (32.0-37.0); MCV 91.2 fL (80.0-97.0); Mean Platelet Volume 10.9 fL (9.5-12.2); Monocytes # (A) 0.53 X 10*3/uL (0.20-1.00); Monocytes % (A) 8.7 %; Neutrophils % (A) 67.1 %; Platelet Count 238 X 10*3/uL (140-440); RBC 4.31 X 10*6/uL (4.10-5.20); RDW 13.7 % (11.5-14.5); WBC 6.11 X 10*3/uL (4.50-10.00)
[2020-04-02 10:44] LABS: African American GFR (CKD) 102.5 (60.0-200.0); Albumin 3.8 g/dL (3.80-4.90); Albumin/Globulin Ratio 1.81 (1.60-3.17); Anion Gap 5.6 mmol/L (4.00-12.00); BUN/Creat Ratio 11.43 Ratio (12.00-20.00); Calcium 8.6 mg/dL (8.7-10.3); Carbon Dioxide 28.4 mmol/L (21.6-31.8); Globulin 2.1 g/dL (1.6-3.3); Non-African American GFR(CKD) 88.4 (60.0-200.0); Potassium 4.3 mmol/L (3.5-5.5); Total Bilirubin 0.3 mg/dL (0.3-1.2); Total Protein 5.9 g/dL (6.2-8.2)
--- NOTE | 2020-04-02 15:01 | PN ---
PROGRESS NOTE DATE OF SERVICE: 04/02/2020 REASON FOR FOLLOWUP: Bacteremia. INTERVAL HISTORY: The patient is currently afebrile. The patient is breathing comfortably. Patient denies having any chest pain. No shortness of breath. Minimal cough. No nausea, no vomiting. No abdominal pain, no diarrhea. PHYSICAL EXAMINATION: Blood pressure 154/96, pulse of 82, temperature 98.1. She is 97% on room air. General description is an elderly female lying in bed in no distress. RESPIRATORY SYSTEM: Unlabored breathing, clear to auscultation anteriorly. HEART: S1, S2. Regular rate and rhythm. ABDOMEN: Soft, no tenderness. LABS: Hemoglobin is 12.3, white count 6.11. BUN of 8, creatinine 0.7. Urine was positive. Blood culture so far pending. DIAGNOSTIC IMPRESSION AND PLAN: Patient with blood cultures with gram-negative as well as gram-positive, question of contamination worsening related to urinary tract infection. Will wait for the urine culture to finalize as well as repeat blood cultures. Continue with Sanchez. MMODL / IJN: [id number] /
[2020-04-02 17:29] LABS: Appearance,Urine Clear (Clear); Bilirubin,Urine Negative (Negative); Blood,Urine Negative (Negative); Color,Urine Yellow; Glucose,Urine (UA) Negative (Negative); Ketones,Urine Negative (Negative); Leukocyte Esterase,Urine Trace (Negative); Mucus,Urine Occasional /hpf; Nitrite,Urine Negative (Negative); Protein,Urine Trace (Negative); RBC,Urine 3 /hpf (0-5); Specific Gravity,Urine 1.016 (1.001-1.035); Squamous Epithelial Cell,Urine 1 /hpf (0-4); Urobilinogen,Urine <2.0 mg/dL (<2.0); WBC,Urine 3 /hpf (0-5)
--- NOTE | 2020-04-02 17:44 | P.PN ---
Subjective Progress Note Date: 04/02/20 69-year-old pleasant female was admitted after she was called back for positive blood cultures. Blood cultures were polymicrobial although significant for gram-negative bacilli. Patient denied any symptoms of urinary tract infection including dysuria suprapubic pain doesn't have any fever chills doesn't have any leukocytosis repeat blood cultures were obtained. Patient was having some vague mild sharp abdominal pain in the left lower quadrant because of which I'm obtaining a CT of the abdomen because of gram-negative bacteremia. Patient still has her gallbladder. Patient was seen in ER couple days ago when she had pain swelling and redness in the left wrist and was diagnosed with inflammatory arthritis subsequently discharged home and was given Keflex. Patient has been taking Keflex. Urine analysis is mildly abnormal Patient is seen and evaluated with nursing staff at bedside; reports severe pain right lower back and flank area; denies any injuries or fall Vital signs remained stable; patient had UA done upon admission which was negative for any growth We will start patient on oral muscle relaxers and monitor closely Objective - Vital Signs Vital signs: Vital Signs Temp 98.1 F 04/02/20 08:24 Pulse 82 04/02/20 08:24 Resp 16 04/02/20 08:24 BP 154/96 04/02/20 08:24 Pulse Ox 97 04/02/20 08:24 Intake & Output 04/01/20 04/02/20 04/02/20 18:59 06:59 18:59 Intake Total 160 Balance 160 Intake: Intake, IV Titration 160 Amount Sodium Chloride 0.9% 1, 160 000 ml @ 130 mls/hr IV . [id number] STA Rx#:[id number] Other: Voiding Method Toilet Toilet # Voids 4 3 - Exam GENERAL: The patient is alert and oriented x3, not in any acute distress. Well developed, well nourished. HEENT: Pupils are round and equally reacting to light. EOMI. No scleral icterus. No conjunctival pallor. Normocephalic, atraumatic. No pharyngeal erythema. No thyromegaly. CARDIOVASCULAR: S1 and S2 present. No murmurs, rubs, or gallops. PULMONARY: Chest is clear to auscultation, no wheezing or crackles. ABDOMEN: Soft, nontender, nondistended, normoactive bowel sounds. No palpable organomegaly. MUSCULOSKELETAL: Swelling in the left wrist which appears to have improved . EXTREMITIES: No cyanosis, clubbing, or pedal edema. NEUROLOGICAL: Gross neurological examination did not reveal any focal deficits. - Labs CBC & Chem 7: 04/02/20 07:43 04/02/20 07:43 Labs: Abnormal Lab Results - Last 24 Hours (Table) 04/02/20 04/02/20 Range/Units 07:43 07:43 MCHC 31.3 L (32.0-37.0) g/dL BUN 8.0 L (9.0-27.0) mg/dL BUN/Creatinine Ratio 11.43 L (12.00-20.00) Ratio Glucose 120 H (70-110) mg/dL Calcium 8.6 L (8.7-10.3) mg/dL Total Protein 5.9 L (6.2-8.2) g/dL Microbiology - Last 24 Hours (Table) 04/01/20 02:20 Blood Culture - Preliminary Blood No Growth after 24 hours 04/01/20 02:10 Blood Culture - Preliminary Blood No Growth after 24 hours 04/01/20 02:10 Urine Culture - Preliminary Urine,Voided Assessment and Plan Assessment: -Bacteremia: Patient has a gram-negative bacilli in the blood which is a significant not a contamination. We'll repeat the blood cultures again. Patient will be continued on Rocephin 2 g daily infectious disease was consulted possible sources being a urinary tract infection or intra-abdominal source considering her abdominal pain and some tenderness in the left lower quadrant w ill obtain a CT of the abdomen. If that's negative patient may need ultrasound of the gallbladder but the decision will be up to infectious disease. -Proximal atrial fibrillation presently rate controlled continue with the her home medications and anticoagulation -Hypothyroidism continue with levothyroxine -History of breast cancer on hormonal therapy which will be continued -Hypertension -Asthma without any acute exacerbation
[2020-04-03] MEDS: INDOMETHACIN 25 MG CAP PO SCH ×4 (01:34→19:25)
[2020-04-03] MEDS: LEVOTHYROXINE 25 MCG TAB PO SCH (06:04)
[2020-04-03] MEDS: FAMOTIDINE 20 MG TAB PO SCH ×2 (09:26→19:18)
[2020-04-03] MEDS: LORATADINE 10 MG TAB PO SCH (09:26)
[2020-04-03] MEDS: APIXABAN 5 MG TAB PO SCH ×2 (09:26→19:18)
[2020-04-03] MEDS: TAMOXIFEN 10 MG TAB PO SCH (09:27)
[2020-04-03] MEDS: FLECAINIDE 50 MG TAB PO SCH ×2 (09:28→19:18)
--- NOTE | 2020-04-03 19:39 | PN ---
PROGRESS NOTE DATE OF SERVICE: 04/03/2020 REASON FOR FOLLOWUP: Gram-negative bacteremia, possible UTI. INTERVAL HISTORY: The patient is currently afebrile. The patient is breathing comfortably. Denies having any chest pain. No shortness of breath or cough. No nausea, no vomiting, no abdominal pain or diarrhea. PHYSICAL EXAMINATION: Blood pressure 154/83, pulse of 77, temperature is 98.3. She is 94% on room air. General description is an elderly female lying in bed in no distress. Respiratory system: Unlabored breathing, is clear to auscultation anteriorly. Heart S1, S2. Regular rate and rhythm. Abdomen soft, no tenderness. LABS: Blood culture repeat has been negative so far. Initial blood culture with gram- negative and sensitivities pending. DIAGNOSTIC IMPRESSION AND PLAN: Patient with Gram-negative bacteremia, question of UTI. CT of abdomen and pelvis was negative. Patient is covered with Rocephin. Will wait for the culture to finalize to determine her discharge antibiotics. Continue supportive care. MMODL / IJN: [id number] /
[2020-04-04] MEDS: INDOMETHACIN 25 MG CAP PO SCH ×4 (01:59→23:40)
[2020-04-04] MEDS: LEVOTHYROXINE 25 MCG TAB PO SCH (05:39)
[2020-04-04] MEDS: FAMOTIDINE 20 MG TAB PO SCH ×2 (08:11→19:20)
[2020-04-04] MEDS: FLECAINIDE 50 MG TAB PO SCH ×2 (08:11→19:20)
[2020-04-04] MEDS: APIXABAN 5 MG TAB PO SCH ×2 (08:11→19:20)
[2020-04-04] MEDS: TAMOXIFEN 10 MG TAB PO SCH (08:13)
[2020-04-04] MEDS: LORATADINE 10 MG TAB PO SCH (08:13)
--- NOTE | 2020-04-04 14:38 | P.PN ---
Subjective Progress Note Date: 04/03/20 Principal diagnosis: Gram-negative bacteremia/ UTI 69-year-old pleasant female was admitted after she was called back for positive blood cultures. Blood cultures were polymicrobial although significant for gram-negative bacilli. Patient denied any symptoms of urinary tract infection including dysuria suprapubic pain doesn't have any fever chills doesn't have any leukocytosis repeat blood cultures were obtained. Patient was having some vague mild sharp abdominal pain in the left lower quadrant because of which I'm obtaining a CT of the abdomen because of gram-negative bacteremia. Patient still has her gallbladder. Patient was seen in ER couple days ago when she had pain swelling and redness in the left wrist and was diagnosed with inflammatory arthritis subsequently discharged home and was given Keflex. Patient has been taking Keflex. Urine analysis is mildly abnormal Patient is seen and evaluated with nursing staff at bedside; reports severe pain right lower back and flank area; denies any injuries or fall Vital signs remained stable; patient had UA done upon admission which was negative for any growth We will start patient on oral muscle relaxers and monitor closely 04/03/2020; late entry on 04/04/2020- charting inadvertently missed yesterday Patient seen and evaluated in room with RN at bedside; reports marked improvement in back pain; remains afebrile Vital signs remained stable with a temperature of 98.3, pulse 77, blood pressure 154/83; initial blood cultures reveal gram-negative organisms with sensitivity pending; repeat blood cultures are negative so far; ID on board and recommending to continue IV Rocephin Objective - Vital Signs Vital signs: Vital Signs Temp 98.2 F 04/04/20 13:39 Pulse 76 04/04/20 13:39 Resp 16 04/04/20 13:39 BP 134/69 04/04/20 13:39 Pulse Ox 96 04/04/20 13:39 Intake & Output 04/03/20 04/04/20 04/04/20 18:59 06:59 18:59 Intake Total 240 720 Output Total 1 Balance 240 719 Intake: Oral 240 720 Output: Stool 1 Other: Voiding Method Toilet Toilet # Voids 1 2 - Exam GENERAL: The patient is alert and oriented x3, not in any acute distress. Well developed, well nourished. HEENT: Pupils are round and equally reacting to light. EOMI. No scleral icterus. No conjunctival pallor. Normocephalic, atraumatic. No pharyngeal erythema. No thyromegaly. CARDIOVASCULAR: S1 and S2 present. No murmurs, rubs, or gallops. PULMONARY: Chest is clear to auscultation, no wheezing or crackles. ABDOMEN: Soft, nontender, nondistended, normoactive bowel sounds. No palpable organomegaly. MUSCULOSKELETAL: Swelling in the left wrist which appears to have improved . EXTREMITIES: No cyanosis, clubbing, or pedal edema. NEUROLOGICAL: Gross neurological examination did not reveal any focal deficits. - Labs CBC & Chem 7: 04/02/20 07:43 04/02/20 07:43 Labs: Microbiology - Last 24 Hours (Table) 04/02/20 07:43 Blood Culture - Preliminary Blood No Growth after 48 hours 04/01/20 02:20 Blood Culture - Preliminary Blood No Growth after 72 hours 04/01/20 02:10 Blood Culture - Preliminary Blood No Growth after 72 hours Assessment and Plan Assessment: -Bacteremia: Patient has a gram-negative bacilli in the blood which is a significant not a contamination. We'll repeat the blood cultures again. Patient will be continued on Rocephin 2 g daily infectious disease was consulted possible sources being a urinary tract infection or intra-abdominal source considering her abdominal pain and some tenderness in the left lower quadrant will obtain a CT of the abdomen. If that's negative patient may need ultrasound of the gallbladder but the decision will be up to infectious disease. -Proximal atrial fibrillation presently rate controlled continue with the her home medications and anticoagulation -Hypothyroidism continue with levothyroxine -History of breast cancer on hormonal therapy which will be continued -Hypertension -Asthma without any acute exacerbation
--- NOTE | 2020-04-04 14:44 | P.PN ---
Subjective Progress Note Date: 04/04/20 Principal diagnosis: Gram-negative bacteremia/ UTI 69-year-old pleasant female was admitted after she was called back for positive blood cultures. Blood cultures were polymicrobial although significant for gram-negative bacilli. Patient denied any symptoms of urinary tract infection including dysuria suprapubic pain doesn't have any fever chills doesn't have any leukocytosis repeat blood cultures were obtained. Patient was having some vague mild sharp abdominal pain in the left lower quadrant because of which I'm obtaining a CT of the abdomen because of gram-negative bacteremia. Patient still has her gallbladder. Patient was seen in ER couple days ago when she had pain swelling and redness in the left wrist and was diagnosed with inflammatory arthritis subsequently discharged home and was given Keflex. Patient has been taking Keflex. Urine analysis is mildly abnormal Patient is seen and evaluated with nursing staff at bedside; reports severe pain right lower back and flank area; denies any injuries or fall Vital signs remained stable; patient had UA done upon admission which was negative for any growth We will start patient on oral muscle relaxers and monitor closely 04/03/2020; late entry on 04/04/2020- charting inadvertently missed yesterday Patient seen and evaluated in room with RN at bedside; reports marked improvement in back pain; remains afebrile Vital signs remained stable with a temperature of 98.3, pulse 77, blood pressure 154/83; initial blood cultures reveal gram-negative organisms with sensitivity pending; repeat blood cultures are negative so far; ID on board and recommending to continue IV Rocephin 04/04/2020 Patient is seen and evaluated resting comfortably in bed with RN at bedside; final culture and sensitivity and initial blood cultures are still pending; per RN she did call microbiology to try to speed up reporting of sensitivity; according to lab it was initiated again last night and will be reported probably around 10 PM tonight or tomorrow morning; await final antibiotic recommendations from ID for discharge planning; repeat blood cultures have been negative so far; patient remains on IV Rocephin Objective - Vital Signs Vital signs: Vital Signs Temp 98.2 F 04/04/20 13:39 Pulse 76 04/04/20 13:39 Resp 16 04/04/20 13:39 BP 134/69 04/04/20 13:39 Pulse Ox 96 04/04/20 13:39 Intake & Output 04/03/20 04/04/20 04/04/20 18:59 06:59 18:59 Intake Total 240 720 Output Total 1 Balance 240 719 Intake: Oral 240 720 Output: Stool 1 Other: Voiding Method Toilet Toilet # Voids 1 2 - Exam GENERAL: The patient is alert and oriented x3, not in any acute distress. Well developed, well nourished. HEENT: Pupils are round and equally reacting to light. EOMI. No scleral icterus. No conjunctival pallor. Normocephalic, atraumatic. No pharyngeal erythema. No thyromegaly. CARDIOVASCULAR: S1 and S2 present. No murmurs, rubs, or gallops. PULMONARY: Chest is clear to auscultation, no wheezing or crackles. ABDOMEN: Soft, nontender, nondistended, normoactive bowel sounds. No palpable organomegaly. MUSCULOSKELETAL: Swelling in the left wrist which appears to have improved . EXTREMITIES: No cyanosis, clubbing, or pedal edema. NEUROLOGICAL: Gross neurological examination did not reveal any focal deficits. - Labs CBC & Chem 7: 04/02/20 07:43 04/02/20 07:43 Labs: Microbiology - Last 24 Hours (Table) 04/02/20 07:43 Blood Culture - Preliminary Blood No Growth after 48 hours 04/01/20 02:20 Blood Culture - Preliminary Blood No Growth after 72 hours 04/01/20 02:10 Blood Culture - Preliminary Blood No Growth after 72 hours Assessment and Plan Assessment: -Bacteremia: Patient has a gram-negative bacilli in the blood which is a significant not a contamination. We'll repeat the blood cultures again. Patient will be continued on Rocephin 2 g daily infectious disease was consulted possible sources being a urinary tract infection or intra-abdominal source considering her abdominal pain and some tenderness in the left lower quadrant will obtain a CT of the abdomen. If that's negative patient may need ultrasound of the gallbladder but the decision will be up to infectious disease. -Proximal atrial fibrillation presently rate controlled continue with the her home medications and anticoagulation -Hypothyroidism continue with levothyroxine -History of breast cancer on hormonal therapy which will be continued -Hypertension -Asthma without any acute exacerbation
--- NOTE | 2020-04-04 23:50 | PN ---
PROGRESS NOTE DATE OF SERVICE: 04/04/2020 REASON FOR FOLLOWUP: Gram-negative bacteremia. INTERVAL HISTORY: Patient is currently afebrile. Patient is breathing comfortably. Denies having any chest pain or shortness of breath or cough. No nausea. No abdominal pain. No diarrhea. PHYSICAL EXAMINATION: Blood pressure 145/74 with a pulse of 76, temperature 98.8. She is 94% on room air. General description is an elderly female lying in bed in no distress. Respiratory system: Unlabored breathing. Clear to auscultation anteriorly. Heart S1, S2. Regular rate and rhythm. Abdomen soft, no tenderness. LABS: No new labs have been obtained today. The ID on the gram-negative is currently pending. DIAGNOSTIC IMPRESSION AND PLAN: Patient admitted to the hospital with bacteremia. Blood culture did show gram- negative. Possibly urinary source. The patient has clinically responded to the Rocephin to continue while waiting for the ID on the gram-negative to determine discharge antibiotics. Continue supportive care. MMODL / IJN: [id number] /
[2020-04-05] MEDS: INDOMETHACIN 25 MG CAP PO SCH ×2 (01:43→19:32)
[2020-04-05 05:21] LABS: Basophils # (A) 0.1 k/uL (0-0.2); Basophils % (A) 1 %; Eosinophils # (A) 0.4 k/uL (0-0.7); Eosinophils % (A) 6 %; HCT 38.8 % (34.0-46.0); HGB 12.3 gm/dL (11.4-16.0); Lymphocytes # (A) 1.3 k/uL (1.0-4.8); Lymphocytes % (A) 20 %; MCH 28.1 pg (25.0-35.0); MCHC 31.7 g/dL (31.0-37.0); MCV 88.6 fL (80.0-100.0); Monocytes # (A) 0.4 k/uL (0-1.0); Monocytes % (A) 6 %; Neutrophils % (A) 64 %; Platelet Count 248 k/uL (150-450); RBC 4.37 m/uL (3.80-5.40); RDW 13.7 % (11.5-15.5); WBC 6.3 k/uL (3.8-10.6)
[2020-04-05 05:43] LABS: African American GFR (CKD) >90 (>60 ml/min/1.73 sqM); Anion Gap 4 mmol/L; Blood Urea Nitrogen 19 mg/dL (7-17); C Reactive Protein 6.3 mg/L (<10.0); Calcium 8.6 mg/dL (8.4-10.2); Carbon Dioxide 30 mmol/L (22-30); Chloride 102 mmol/L (98-107); Glucose 108 mg/dL (74-99); Non-African American GFR(CKD) 87 (>60 ml/min/1.73 sqM); Potassium 5.2 mmol/L (3.5-5.1); Sodium 136 mmol/L (137-145)
[2020-04-05] MEDS: LEVOTHYROXINE 25 MCG TAB PO SCH (05:47)
[2020-04-05] MEDS: TAMOXIFEN 10 MG TAB PO SCH (10:04)
[2020-04-05] MEDS: FLECAINIDE 50 MG TAB PO SCH ×2 (10:04→20:18)
[2020-04-05] MEDS: APIXABAN 5 MG TAB PO SCH ×2 (10:04→20:17)
[2020-04-05] MEDS: FAMOTIDINE 20 MG TAB PO SCH ×2 (10:04→20:18)
[2020-04-05] MEDS: LORATADINE 10 MG TAB PO SCH (10:04)
--- NOTE | 2020-04-05 22:08 | PN ---
PROGRESS NOTE DATE OF SERVICE: 04/05/2020 REASON FOR FOLLOWUP: Gram-negative bacteremia. INTERVAL HISTORY: The patient is currently afebrile. The patient is breathing comfortably. The patient denies having any chest pain or shortness of breath or cough. No nausea, no vomiting, no abdominal pain or diarrhea. PHYSICAL EXAMINATION: Blood pressure 143/70 with a pulse of 76, temperature 97.5. She is 95% on room air. General description is an elderly female lying in bed in no distress. RESPIRATORY SYSTEM: Unlabored breathing. Clear to auscultation anteriorly. HEART: S1, S2. Regular rate and rhythm. ABDOMEN: Soft. No tenderness. LABS: Blood culture repeat is so far negative. Initial blood culture with Gram-negative; ID and sensitivity still pending. DIAGNOSTIC IMPRESSION AND PLAN: Patient admitted to hospital with bacteremia. Still waiting for the final ID of that pathogen. The patient did have a positive UA. Subsequent cultures have been negative. Continue with Rocephin until the cultures are finalized. Continue supportive care. MMODL / IJN: [id number] /
[2020-04-06] MEDS: LEVOTHYROXINE 25 MCG TAB PO SCH (06:41)
[2020-04-06 08:33] VITALS: BP 159/96; PULSE 78; RESP 16; TEMP 98.2
[2020-04-06] MEDS: FLECAINIDE 50 MG TAB PO SCH (08:55)
[2020-04-06] MEDS: FAMOTIDINE 20 MG TAB PO SCH (08:55)
[2020-04-06] MEDS: APIXABAN 5 MG TAB PO SCH (08:55)
[2020-04-06] MEDS: TAMOXIFEN 10 MG TAB PO SCH (08:55)
[2020-04-06] MEDS: LORATADINE 10 MG TAB PO SCH (08:55)
[2020-04-06 10:25] LABS: African American GFR (CKD) >90 (>60 ml/min/1.73 sqM); Anion Gap 5 mmol/L; Blood Urea Nitrogen 18 mg/dL (7-17); Calcium 8.9 mg/dL (8.4-10.2); Carbon Dioxide 31 mmol/L (22-30); Chloride 99 mmol/L (98-107); Glucose 104 mg/dL (74-99); Non-African American GFR(CKD) 84 (>60 ml/min/1.73 sqM); Potassium 4.3 mmol/L (3.5-5.1); Sodium 135 mmol/L (137-145)
--- NOTE | 2020-04-06 10:55 | P.PN ---
Subjective Progress Note Date: 04/05/20 Principal diagnosis: Gram-negative bacteremia/ UTI 69-year-old pleasant female was admitted after she was called back for positive blood cultures. Blood cultures were polymicrobial although significant for gram-negative bacilli. Patient denied any symptoms of urinary tract infection including dysuria suprapubic pain doesn't have any fever chills doesn't have any leukocytosis repeat blood cultures were obtained. Patient was having some vague mild sharp abdominal pain in the left lower quadrant because of which I'm obtaining a CT of the abdomen because of gram-negative bacteremia. Patient still has her gallbladder. Patient was seen in ER couple days ago when she had pain swelling and redness in the left wrist and was diagnosed with inflammatory arthritis subsequently discharged home and was given Keflex. Patient has been taking Keflex. Urine analysis is mildly abnormal Patient is seen and evaluated with nursing staff at bedside; reports severe pain right lower back and flank area; denies any injuries or fall Vital signs remained stable; patient had UA done upon admission which was negative for any growth We will start patient on oral muscle relaxers and monitor closely 04/03/2020; late entry on 04/04/2020- charting inadvertently missed yesterday Patient seen and evaluated in room with RN at bedside; reports marked improvement in back pain; remains afebrile Vital signs remained stable with a temperature of 98.3, pulse 77, blood pressure 154/83; initial blood cultures reveal gram-negative organisms with sensitivity pending; repeat blood cultures are negative so far; ID on board and recommending to continue IV Rocephin 04/04/2020 Patient is seen and evaluated resting comfortably in bed with RN at bedside; final culture and sensitivity and initial blood cultures are still pending; per RN she did call microbiology to try to speed up reporting of sensitivity; according to lab it was initiated again last night and will be reported probably around 10 PM tonight or tomorrow morning; await final antibiotic recommendations from ID for discharge planning; repeat blood cultures have been negative so far; patient remains on IV Rocephin 04/05/2020 Patient is currently lying in the bed comfortably. No complaints of fever or chills overnight. No nausea vomiting or abdominal pain or diarrhea. Lower Abdominal discomfort is better today. Final blood culture report and sensitivity is pending at this time. Repeat blood cultures have been negative so far. Currently on IV Rocephin and ID is following. No compressive chest pain or shortness of breath. No cough or sputum production. current medications reviewed. Objective - Vital Signs Vital signs: Vital Signs Temp 97.5 F L 04/05/20 14:29 Pulse 76 04/05/20 14:29 Resp 20 04/05/20 14:29 BP 143/70 04/05/20 14:29 Pulse Ox 95 04/05/20 14:29 Intake & Output 04/04/20 04/05/20 04/05/20 18:59 06:59 18:59 Intake Total 960 300 Output Total 1 Balance 959 300 Intake: Oral 960 300 Output: Stool 1 Other: Voiding Method Toilet Toilet # Voids 3 1 1 - Exam - Exam GENERAL: The patient is alert and oriented x3, not in any acute distress. Well developed, well nourished. HEENT: Pupils are round and equally reacting to light. EOMI. No scleral icterus. No conjunctival pallor. Normocephalic, atraumatic. No pharyngeal erythema. No thyromegaly. CARDIOVASCULAR: S1 and S2 present. No murmurs, rubs, or gallops. PULMONARY: Chest is clear to auscultation, no wheezing or crackles. ABDOMEN: Soft, nontender, nondistended, normoactive bowel sounds. No palpable organomegaly. MUSCULOSKELETAL: Swelling in the left wrist which appears to have improved . EXTREMITIES: No cyanosis, clubbing, or pedal edema. NEUROLOGICAL: Gross neurological examination did not reveal any focal deficits. - Labs CBC & Chem 7: 04/05/20 05:02 04/06/20 09:42 Labs: Abnormal Lab Results - Last 24 Hours (Table) 04/05/20 Range/Units 05:02 Sodium 136 L (137-145) mmol/L Potassium 5.2 H (3.5-5.1) mmol/L BUN 19 H (7-17) mg/dL Glucose 108 H (74-99) mg/dL Microbiology - Last 24 Hours (Table) 04/02/20 07:43 Blood Culture - Preliminary Blood No Growth after 72 hours 04/01/20 02:20 Blood Culture - Preliminary Blood No Growth after 96 hours 04/01/20 02:10 Blood Culture - Preliminary Blood No Growth after 96 hours Assessment and Plan Assessment: -Bacteremia: Patient has a gram-negative bacilli in the blood which is a significant not a contamination. Repeat blood cultures have been negative so far. Awaiting final sensitivity report. Patient will be continued on Rocephin 2 g daily infectious disease was consulted possible sources being a urinary tract infection or intra-abdominal source considering her abdominal pain and some tenderness in the left lower quadrant . CT of the abdominal pelvis showed significant colonic diverticulosis without ac red cliff diverticulitis. Suboptimal study. -Proximal atrial fibrillation presently rate controlled continue with the her home medications and anticoagulation -Hypothyroidism continue with levothyroxine -History of breast cancer on hormonal therapy which will be continued -Hypertension -Asthma without any acute exacerbation Time with Patient: Greater than 30
--- NOTE | 2020-04-06 14:54 | PN ---
PROGRESS NOTE DATE OF SERVICE: 04/06/2020 REASON FOR FOLLOWUP: Bacteremia/UTI. INTERVAL HISTORY: The patient is currently afebrile. Patient is breathing comfortably. Denies having any chest pain or shortness of breath or cough. No nausea, no vomiting. No abdominal pain, no diarrhea. PHYSICAL EXAMINATION: Blood pressure 159/96, pulse of 78, temperature 98.2. She is 95% on room air. General description is an elderly female up in the bed in no distress. RESPIRATORY SYSTEM: Unlabored breathing, clear to auscultation. HEART: S1, S2. Regular rate and rhythm. ABDOMEN: Soft, no tenderness. LABS: Hemoglobin is 12.3, white count 6.3. Repeat blood culture negative. Blood culture done on the 2nd did show Sphingobacterium and Enterococcus. DIAGNOSTIC IMPRESSION AND PLAN: Patient with a positive blood culture on 03/30 with no obvious focus versus contaminant. Repeat blood culture has been negative. CT of abdomen and pelvis was negative. Did have mild positive UA and improved with Rocephin finishing therapy with a short course of oral Ceftin. Has been advised checking blood cultures x1 a week after completion of antibiotic to make sure no evidence of any bacteremia, which if negative no further workup will be done. MMODL / IJN: [id number] /
--- NOTE | 2020-04-07 09:30 | P.DS ---
Providers Date of admission: 04/01/20 08:51 Expected date of discharge: 04/06/20 Attending physician: Chintan Tamayo Consults: 04/01/20 01:37 Consult Physician Routine Consulting Provider: Evans Balderas Consult Reason/Comments: positiveBloodCx Do you want consulting provider notified?: Yes Primary care physician: John Hickey [facility] Course: Final Diagnosis -Bacteremia: Patient has a gram-negative bacilli in the blood which is a significant not a contamination -Proximal atrial fibrillation presently rate controlled -Hypothyroidism -History of breast cancer on hormonal therapy -Hypertension -Asthma without any acute exacerbation -Full code Discharge disposition Patient is being discharged in a stable condition with guarded prognosis to home. Patient will follow-up with Dr. Hickey in the outpatient setting upon discharge. Patient is to continue with oral antibiotics in the form of Ceftin 500 mg twice daily for the next one week to complete the course. Patient will also follow-up with infectious disease Dr. Balderas in the outpatient setting. Total time taken is greater than 35 minutes. Hospital course Gram-negative bacteremia/ UTI 69-year-old pleasant female was admitted after she was called back for positive blood cultures. Blood cultures were polymicrobial although significant for gram-negative bacilli. Patient denied any symptoms of urinary tract infection including dysuria suprapubic pain doesn't have any fever chills doesn't have any leukocytosis repeat blood cultures were obtained. Patient was having some vague mild sharp abdominal pain in the left lower quadrant because of which I'm obtaining a CT of the abdomen because of gram-negative bacteremia. Patient still has her gallbladder. Patient was seen in ER couple days ago when she had pain swelling and redness in the left wrist and was diagnosed with inflammatory arthritis subsequently discharged home and was given Keflex. Patient has been taking Keflex. Urine analysis is mildly abnormal 04/06/2020 A she is seen and evaluated in follow-up with no acute overnight issues. Patient states her abdominal discomfort is improved and denies any nausea or vomiting and is tolerating diet. Patient denies any dysuria or retention and is having bowel movements. Infectious disease following an urine and blood cultures remain negative. Patient was continued on IV ceftriaxone and we'll transition to Ceftin 500 mg twice daily for the next 1 week to complete the course. She instructed to follow-up with primary care provider upon discharge. Currently no reports of chest pain, shortness of breath, or palpitations. Patient is afebrile. No reports of nausea or vomiting and patient is tolerating diet. Patient will be discharged home today. On exam vital signs are stable. Cardio S1, S2 are muffled. Respiratory system shows diminished breath sounds at the bases with no wheezing or rhonchi noted. Abdomen is soft and nontender. Nervous system shows no focal deficits. Please refer to medication reconciliation sheet for a list of medications. Patient Condition at Discharge: Good Plan - Discharge Summary Discharge Rx Participant: No New Discharge Prescriptions: New Cefuroxime Axetil [Ceftin] 500 mg PO BID 7 Days #14 tab Continue traMADol HCL [Ultram] 50 mg PO TID PRN PRN Reason: Pain diphenhydrAMINE [Benadryl] 25 mg PO BID PRN PRN Reason: allergies Levothyroxine Sodium [Levoxyl] 25 mcg PO DAILY Tamoxifen Citrate 20 mg PO DAILY Flecainide Acetate [Tambocor] 100 mg PO Q12HR Albuterol Sulfate [Proventil Hfa] 1 puff INHALATION RT-Q4H PRN PRN Reason: Shortness Of Breath Or Wheezing Apixaban [Eliquis] 5 mg PO BID Loratadine [Claritin] 10 mg PO DAILY Indomethacin [Indocin] 50 mg PO TID 3 Days #9 capsule Discontinued Cephalexin [Keflex] 500 mg PO Q6HR 7 Days #28 cap Discharge Medication List traMADol HCL [Ultram] 50 mg PO TID PRN 03/12/14 [History] diphenhydrAMINE [Benadryl] 25 mg PO BID PRN 11/12/15 [History] Levothyroxine Sodium [Levoxyl] 25 mcg PO DAILY 11/30/15 [History] Tamoxifen Citrate 20 mg PO DAILY 08/10/16 [History] Flecainide Acetate [Tambocor] 100 mg PO Q12HR 03/06/18 [History] Albuterol Sulfate [Proventil Hfa] 1 puff INHALATION RT-Q4H PRN 01/06/20 [History] Apixaban [Eliquis] 5 mg PO BID 01/06/20 [History] Indomethacin [Indocin] 50 mg PO TID 3 Days #9 capsule 03/30/20 [Rx] Loratadine [Claritin] 10 mg PO DAILY 03/30/20 [History] Cefuroxime Axetil [Ceftin] 500 mg PO BID 7 Days #14 tab 04/06/20 [Rx] Follow up Appointment(s)/Referral(s): John Hickey MD [Primary Care Provider] - 04/08/20 2:00 pm Evans Balderas MD [STAFF PHYSICIAN] - 1 Week (apr 19 2pm) Activity/Diet/Wound Care/Special Instructions: FOLLOW UP SCHEDULED, SOONER FOR WORSENING PROBLEMS OR CONCERNS THAT BROUGHT YOU IN. Activity Limited until follow-up Follow-up with primary care provider upon discharge Continue with antibiotics as scheduled continue current diet Discharge Disposition: HOME SELF-CARE
== END 2020-04-06 13:55 | disposition home or self-care (01) | DRG 690 ==
LOC: EC 00:36 → 4SSUR 01:37 → OBSVTOIN 08:51 → 6PED 23:08 → UNDODISIN 04-02 18:14
PROVIDERS: ADMIT Hospitalist; ATTEND Hospitalist
DX: N39.0 Urinary tract infection, site not specified (principal); R78.81 Bacteremia; L03.114 Cellulitis of left upper limb; M41.9 Scoliosis, unspecified; K57.30 Diverticulosis of large intestine without perforation or abscess without bleeding; E03.9 Hypothyroidism, unspecified; I10 Essential (primary) hypertension; I48.0 Paroxysmal atrial fibrillation; J45.909 Unspecified asthma, uncomplicated; Z79.01 Long term (current) use of anticoagulants; Z79.890 Hormone replacement therapy; Z80.0 Family history of malignant neoplasm of digestive organs; Z80.3 Family history of malignant neoplasm of breast; Z82.5 Family history of asthma and other chronic lower respiratory diseases; Z85.3 Personal history of malignant neoplasm of breast; Z92.3 Personal history of irradiation; Z98.42 Cataract extraction status, left eye; Z98.41 Cataract extraction status, right eye; Z96.1 Presence of intraocular lens; Z81.1 Family history of alcohol abuse and dependence; Z82.61 Family history of arthritis; Z79.899 Other long term (current) drug therapy; Z88.1 Allergy status to other antibiotic agents; Z88.0 Allergy status to penicillin; Z88.8 Allergy status to other drugs, medicaments and biological substances; G43.909 Migraine, unspecified, not intractable, without status migrainosus; N90.4 Leukoplakia of vulva; Z87.01 Personal history of pneumonia (recurrent); M25.532 Pain in left wrist
CPT/HCPCS: 36415; 71046; 74176; 80048; 80053; 81001; 82550; 83605; 83735; 84100; 84550; 85025; 85652; 86140; 87040; 87077; 87086; 87186; 87635; 93005; 96365; 96374; 99282; 99284; 99285

== ENCOUNTER → 2020-04-22 | Outpatient (CLI) | payer MEDICARE ==
[2020-04-22 18:21] LABS: African American GFR (CKD) 102.5 (60.0-200.0); Anion Gap 7.3 mmol/L (4.00-12.00); BUN/Creat Ratio 17.14 Ratio (12.00-20.00); C Reactive Protein 0.4 mg/dL (0.0-0.8); Calcium 9.6 mg/dL (8.7-10.3); Carbon Dioxide 28.7 mmol/L (21.6-31.8); Non-African American GFR(CKD) 88.4 (60.0-200.0); Potassium 4.5 mmol/L (3.5-5.5)
[2020-04-22 18:51] LABS: Basophils # (A) 0.04 X 10*3/uL (0.00-0.10); Basophils % (A) 0.6 %; Eosinophils # (A) 0.15 X 10*3/uL (0.04-0.35); Eosinophils % (A) 2.1 %; HCT 41.5 % (37.2-46.3); HGB 12.3 g/dL (12.0-15.0); Lymphocytes # (A) 1.03 X 10*3/uL (0.90-5.00); Lymphocytes % (A) 14.4 %; MCH 28.7 pg (27.0-32.0); MCHC 29.6 g/dL (32.0-37.0); MCV 96.7 fL (80.0-97.0); Mean Platelet Volume 11.4 fL (9.5-12.2); Monocytes # (A) 0.48 X 10*3/uL (0.20-1.00); Monocytes % (A) 6.7 %; Neutrophils # (A) 5.42 X 10*3/uL (1.80-7.70); Neutrophils % (A) 75.9 %; Platelet Count 228 X 10*3/uL (140-440); RBC 4.29 X 10*6/uL (4.10-5.20); RDW 14.5 % (11.5-14.5); WBC 7.14 X 10*3/uL (4.50-10.00)
[2020-04-22 22:00] LABS: Erythrocyte Sedimentation Rate 6 mm/Hr (0-30)
== END | disposition home or self-care (01) ==
LOC: LABWHC1 09:10
PROVIDERS: ATTEND Internal Medicine Infectious Disease
DX: R78.81 Bacteremia (principal)
CPT/HCPCS: 36415; 80048; 85025; 85652; 86140; 87040

== ENCOUNTER 2020-07-24 17:07 | Emergency (ER) | payer MEDICARE ==
--- NOTE | 2020-07-24 17:34 | ED ---
General Adult HPI - General Chief complaint: Upper Respiratory Infection Stated complaint: cough Time Seen by Provider: 07/24/20 17:20 Source: patient, RN notes reviewed Mode of arrival: ambulatory Limitations: no limitations - History of Present Illness Initial comments: Patient is a pleasant 69-year-old female presenting to the emergency Department with congestion and cough. Onset of symptoms was over a week ago now. Patient has occasional yellow or green sputum. No fevers. Patient has congestion up in her sinuses as well as her chest. There may be some mild occasional wheezing or shortness of breath. Patient does have history of asthma as well his previous pneumonia. No leg pain or leg swelling. Patient has been vaccinated for COVID-19. - Related Data Home Medications Medication Instructions Recorded Confirmed traMADol HCL [Ultram] 50 mg PO TID PRN 03/12/14 07/24/20 diphenhydrAMINE [Benadryl] 25 mg PO BID PRN 11/12/15 07/24/20 Levothyroxine Sodium [Levoxyl] 25 mcg PO DAILY 11/30/15 07/24/20 Tamoxifen Citrate 20 mg PO DAILY 08/10/16 07/24/20 Flecainide Acetate [Tambocor] 100 mg PO Q12HR 03/06/18 07/24/20 Albuterol Sulfate [Proventil Hfa] 1 puff INHALATION RT-Q4H PRN 01/06/20 07/24/20 Apixaban [Eliquis] 5 mg PO BID 01/06/20 07/24/20 Loratadine [Claritin] 10 mg PO DAILY 03/30/20 07/24/20 Previous Rx's Medication Instructions Recorded Azithromycin [Zithromax Z-pack (6 250 mg PO DIRECTED #6 tab 07/24/20 tabs)] Allergies Allergy/AdvReac Type Severity Reaction Status Date / Time ciprofloxacin [From Cipro] Allergy Rash/Hives Verified 07/24/20 17:41 ciprofloxacin HCl Allergy Rash/Hives Verified 07/24/20 17:41 [From Cipro] fexofenadine HCl Allergy Rash/Hives Verified 07/24/20 17:41 [From Rupinder] amoxicillin [From Augmentin] AdvReac Nausea Verified 07/24/20 17:41 clavulanic acid AdvReac Nausea Verified 07/24/20 17:41 [From Augmentin] Xbmuvqh-Rxe-Phg Reductase AdvReac muscle Verified 07/24/20 17:41 Inhibitor cramps theophylline anhydrous AdvReac headaches, Verified 07/24/20 17:41 [From Morteza-Dur] N/V Review of Systems ROS Statement: Those systems with pertinent positive or pertinent negative responses have been documented in the HPI. ROS Other: All systems not noted in ROS Statement are negative. Constitutional: Denies: fever Eyes: Denies: eye pain ENT: Denies: ear pain Respiratory: Reports: as per HPI, cough Cardiovascular: Denies: chest pain Endocrine: Denies: fatigue Gastrointestinal: Denies: abdominal pain Genitourinary: Denies: dysuria Musculoskeletal: Denies: back pain Skin: Denies: rash Neurological: Denies: weakness Past Medical History Past Medical History: Atrial Fibrillation, Asthma, Cancer, Hypertension, Osteoarthritis (OA), Pneumonia, Thyroid Disorder Additional Past Medical History / Comment(s): SCOLIOSIS, MIGRAINES, HX OF BREAST CANCER WITH SURGERY & RADIATION (2016)., OCCASIONAL VERTIGO., BACK PAIN. 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 History of lichen sclerosis by vulvar biopsy. History of Any Multi-Drug Resistant Organisms: None Reported Past Surgical History: Back Surgery, Breast Surgery, Section Additional Past Surgical History / Comment(s): JACOBO CATARACT SX-LENS IMPLANTS, HAS A GISELLE IN BACK, LOOP RECORDER INSERTION & REMOVAL., LEFT BREAST LUMPECTOMY (10/2015). Carpal tunnel surgery. Colonoscopy 2011 . Past Anesthesia/Blood Transfusion Reactions: No Reported Reaction, Motion Sickness Past Psychological History: No Psychological Hx Reported Smoking Status: Never smoker Past Alcohol Use History: None Reported Past Drug Use History: None Reported - Past Family History Father Family Medical History: Cancer, COPD, Osteoarthritis (OA) Additional Family Medical History / Comment(s): ALCOHOLIC Mother Family Medical History: No Reported History Additional Family Medical History / Comment(s): ALCOHOLIC/SMOKER. Grandmother had colon cancer and a cousin had breast cancer. General Exam Limitations: no limitations General appearance: alert, in no apparent distress Head exam: Present: normocephalic Eye exam: Present: normal appearance Neck exam: Present: normal inspection Respiratory exam: Present: wheezes Cardiovascular Exam: Present: regular rate, normal rhythm GI/Abdominal exam: Present: soft. Absent: tenderness Extremities exam: Present: normal inspection. Absent: pedal edema, calf tenderness Neurological exam: Present: alert Psychiatric exam: Present: normal affect, normal mood Skin exam: Present: normal color Course Vital Signs 07/24/20 07/24/20 07/24/20 17:15 18:52 19:01 Temperature 98.1 F Pulse Rate 80 72 73 Respiratory 22 Rate Blood Pressure 153/89 O2 Sat by Pulse 94 L Oximetry Medical Decision Making - Medical Decision Making Patient reevaluated and feeling better. Lung sounds clear. Patient is requesting discharge home. Patient updated. - Lab Data Lab Results 07/24/20 Range/Units 17:47 Coronavirus (PCR) Not Detected (Not Detectd) - Radiology Data Radiology results: image reviewed (Chest x-ray concerning for right lower lobe infiltrate) Disposition Clinical Impression: Pneumonia Disposition: HOME SELF-CARE Condition: Stable Instructions (If sedation given, give patient instructions): Pneumonia (ED) Additional Instructions: Please do follow-up with your primary care physician in the next day or 2 for recheck. Return for fevers, difficulty breathing, worsening symptoms or any other concerns. Prescription and has been sent to pharmacy. Prescriptions: Azithromycin [Zithromax Z-pack (6 tabs)] 250 mg PO DIRECTED #6 tab Is patient prescribed a controlled substance at d/c from ED?: No Referrals: John Hickey MD [Primary Care Provider] - 1-2 days
--- NOTE | 2020-07-24 18:24 | XR ---
EXAMINATION TYPE: XR chest 2V DATE OF EXAM: 07/24/2020 COMPARISON: 04/01/2020 HISTORY: Weakness TECHNIQUE: 2 views FINDINGS: There is no heart failure. There is increased density over the posterior heart on the later al view. I do not see a corresponding density on the frontal view. The old CT scan of 04/01/2020 is rev iewed and this density appears to relate to some infiltrate and atelectasis in the right lower lobe r ight paraspinal region. There is thoracic dextroscoliosis. There is spinal rods stabilizing the thora cic spine. There are no hilar masses. Heart size is normal. There is no pleural effusion. IMPRESSION: There is some increased density in the right lower lobe right paraspinal region best seen on the lateral view and consistent with infiltrate and atelectasis. This appears increased compared to old chest x-ray. Scoliotic deformity noted..
[2020-07-24] MEDS ORDERED: IPRATROPIUM-ALBUTEROL 3 ML NEB INHALATION STA (18:32)
[2020-07-24] MEDS ORDERED: AZITHROMYCIN 500 MG TAB PO STA (19:05)
[2020-07-24 19:16] VITALS: BP 150/94; PULSE 54; RESP 18; TEMP 97.4
== END 2020-07-24 19:18 | disposition home or self-care (01) ==
LOC: EC 17:07
DX: J18.9 Pneumonia, unspecified organism (principal); I48.91 Unspecified atrial fibrillation; J45.909 Unspecified asthma, uncomplicated; I10 Essential (primary) hypertension; M19.90 Unspecified osteoarthritis, unspecified site; Z85.3 Personal history of malignant neoplasm of breast; Z79.01 Long term (current) use of anticoagulants; Z79.51 Long term (current) use of inhaled steroids; Z20.822 Contact with and (suspected) exposure to COVID-19; Z88.0 Allergy status to penicillin
CPT/HCPCS: 71046; 87635; 94640; 99284

== ENCOUNTER 2020-08-08 13:56 | Emergency (ER) | payer MEDICARE, OTHER ==
[2020-08-08 14:07] VITALS: RESP 18; TEMP 98
--- NOTE | 2020-08-08 14:43 | ED ---
Fall HPI - General Chief Complaint: Fall Stated Complaint: fall Time Seen by Provider: 08/08/20 14:22 Source: patient Mode of arrival: ambulatory - History of Present Illness Initial Comments: This is a 69-year-old female who presents emergent department after mechanical fall. The patient states that she was at work and walking and she tripped on something on the floor. She fell forward and hit her knee and then slid across the floor and hit her head on a door. She denies any loss of consciousness. She states that she immediately had some pain in her right knee and also her right thumb. She was able to get up with assistance and ambulate however was icing the knee and noted that it was getting very swollen so she decided come emergency department. She denies any headache, nausea, or vomiting. The patient is on L [place]. She denies any other injuries. No visual complaints. - Related Data Home Medications Medication Instructions Recorded Confirmed traMADol HCL [Ultram] 50 mg PO TID PRN 03/12/14 07/24/20 diphenhydrAMINE [Benadryl] 25 mg PO BID PRN 11/12/15 07/24/20 Levothyroxine Sodium [Levoxyl] 25 mcg PO DAILY 11/30/15 07/24/20 Tamoxifen Citrate 20 mg PO DAILY 08/10/16 07/24/20 Flecainide Acetate [Tambocor] 100 mg PO Q12HR 03/06/18 07/24/20 Albuterol Sulfate [Proventil Hfa] 1 puff INHALATION RT-Q4H PRN 01/06/20 07/24/20 Apixaban [Eliquis] 5 mg PO BID 01/06/20 07/24/20 Loratadine [Claritin] 10 mg PO DAILY 03/30/20 07/24/20 Previous Rx's Medication Instructions Recorded Azithromycin [Zithromax Z-pack (6 250 mg PO DIRECTED #6 tab 07/24/20 tabs)] Allergies Allergy/AdvReac Type Severity Reaction Status Date / Time ciprofloxacin [From Cipro] Allergy Rash/Hives Verified 08/08/20 14:07 ciprofloxacin HCl Allergy Rash/Hives Verified 08/08/20 14:07 [From Cipro] fexofenadine HCl Allergy Rash/Hives Verified 08/08/20 14:07 [From Rupinder] amoxicillin [From Augmentin] AdvReac Nausea Verified 08/08/20 14:07 clavulanic acid AdvReac Nausea Verified 08/08/20 14:07 [From Augmentin] Tdjahxv-Yil-Dyb Reductase AdvReac muscle Verified 08/08/20 14:07 Inhibitor cramps theophylline anhydrous AdvReac headaches, Verified 08/08/20 14:07 [From Morteza-Dur] N/V Review of Systems ROS Statement: Those systems with pertinent positive or pertinent negative responses have been documented in the HPI. ROS Other: All systems not noted in ROS Statement are negative. Past Medical History Past Medical History: Atrial Fibrillation, Asthma, Cancer, Hypertension, Osteoarthritis (OA), Pneumonia, Thyroid Disorder Additional Past Medical History / Comment(s): SCOLIOSIS, MIGRAINES, HX OF BREAST CANCER WITH SURGERY & RADIATION (2016)., OCCASIONAL VERTIGO., BACK PAIN. 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 History of lichen sclerosis by vulvar biopsy. History of Any Multi-Drug Resistant Organisms: None Reported Past Surgical History: Back Surgery, Breast Surgery, Section Additional Past Surgical History / Comment(s): JACOBO CATARACT SX-LENS IMPLANTS, HAS A GISELLE IN BACK, LOOP RECORDER INSERTION & REMOVAL., LEFT BREAST LUMPECTOMY (10/2015). Carpal tunnel surgery. Colonoscopy 2011 . Past Anesthesia/Blood Transfusion Reactions: No Reported Reaction, Motion Sickness Past Psychological History: No Psychological Hx Reported Smoking Status: Never smoker Past Alcohol Use History: None Reported Past Drug Use History: None Reported - Past Family History Father Family Medical History: Cancer, COPD, Osteoarthritis (OA) Additional Family Medical History / Comment(s): ALCOHOLIC Mother Family Medical History: No Reported History Additional Family Medical History / Comment(s): ALCOHOLIC/SMOKER. Grandmother had colon cancer and a cousin had breast cancer. General Exam - General Exam Comments Initial Comments: Constitutional: Awake alert Appears comfortable Head: Normocephalic, the patient has a 2-3 cm hematoma to the right parietal scalp region Eyes: no conjunctival injection No scleral icterus EOMI, pupils are 4 mm and reactive bilaterally Neck: No JVD Supple, no midline tenderness, full range of motion without any pain Heart: Regular rate rhythm normal S1-S2 no murmurs Lungs: Clear to auscultation bilaterally No wheezing No rales Abdomen: Soft nondistended nontender Extremities: Non edematous DP pulses intact Radial pulses intact, the patient has a significant hematoma to the right knee over the patella. No joint line tenderness. Able to flex the knee to some extent however somewhat limited by pain. Neurovascular intact distally., There is a an abrasion to the right elbow however full range of motion Neuro: A&Ox3 No focal neurologic deficits Psych: Appropriate mood and affect Limitations: no limitations Course Vital Signs 08/08/20 14:02 Temperature 98 F Pulse Rate 78 Respiratory 18 Rate Blood Pressure 148/88 O2 Sat by Pulse 96 Oximetry Medical Decision Making - Medical Decision Making Is a 69-year-old female who presents emergency department after a fall. Patient was evaluated bedside. Found have a significant hematoma to the right knee. X- rays were performed of the right knee right hand and CT of the brain was performed. had no emergent injuries. The patient was placed in Thuan bandage around the knee. Hematoma and instructed to ice and elevate the area. No restrictions with walking however. CT that was unremarkable. However I did discuss the possibility of delayed bleeding with her and the . I instructed them to bring her back if she develops any headache, nausea, vomiting, or mental status changes. He stated that he understood and agreed and would be with her for 4 hours. Otherwise the patient follow-up closely with her primary doctor and continue to ice and elevate and compress the knee. Same with the right thumb. All questions were answered. Disposition Clinical Impression: Knee contusion, Elbow abrasion, Thumb contusion Disposition: HOME SELF-CARE Condition: Stable Instructions (If sedation given, give patient instructions): Contusion in Adults (ED), Abrasion (ED) Is patient prescribed a controlled substance at d/c from ED?: No Referrals: John Hickey MD [Primary Care Provider] - 1-2 days
--- NOTE | 2020-08-08 15:51 | CT ---
EXAMINATION TYPE: CT brain wo con DATE OF EXAM: 08/08/2020 COMPARISON: None HISTORY: Pt tripped, hit front of head. Denies LOC CT DLP: 1088.4 mGycm Automated exposure control for dose reduction was used. Ventricles have normal size. There is no mass effect nor midline shift. There is no sign of intracran ial hemorrhage. Calvarium is intact. Skull base is intact. IMPRESSION: Negative unenhanced head CT scan.
--- NOTE | 2020-08-08 16:15 | XR ---
EXAMINATION TYPE: XR hand complete RT DATE OF EXAM: 08/08/2020 COMPARISON: NONE HISTORY: Fall. Pain. TECHNIQUE: 3 views FINDINGS: There is narrowing and spurring at the first carpometacarpal joint. There is spurring at th e DIP joints of the fingers. I see no fracture nor dislocation. IMPRESSION: Osteoarthritis. No fracture seen.
--- NOTE | 2020-08-08 16:16 | XR ---
EXAMINATION TYPE: XR knee 4V RT DATE OF EXAM: 08/08/2020 COMPARISON: NONE HISTORY: Knee pain TECHNIQUE: 3 views FINDINGS: There is significant soft tissue swelling anterior to the patella. I see no fracture nor di slocation. Joint spaces are fairly normal. IMPRESSION: Anterior soft tissue swelling. No fracture.
[2020-08-08 16:54] VITALS: BP 153/89; PULSE 76
== END 2020-08-08 16:53 | disposition home or self-care (01) ==
LOC: EC 13:56
DX: S80.01XA Contusion of right knee, initial encounter (principal); S00.03XA Contusion of scalp, initial encounter; S60.011A Contusion of right thumb without damage to nail, initial encounter; S50.311A Abrasion of right elbow, initial encounter; I10 Essential (primary) hypertension; J45.909 Unspecified asthma, uncomplicated; E07.9 Disorder of thyroid, unspecified; M19.90 Unspecified osteoarthritis, unspecified site; Z79.890 Hormone replacement therapy; Z88.0 Allergy status to penicillin; Z88.1 Allergy status to other antibiotic agents; Z88.8 Allergy status to other drugs, medicaments and biological substances; Z79.899 Other long term (current) drug therapy; Z79.891 Long term (current) use of opiate analgesic; W01.198A Fall on same level from slipping, tripping and stumbling with subsequent striking against other object, initial encounter; Y93.01 Activity, walking, marching and hiking; Y99.0 Civilian activity done for income or pay
CPT/HCPCS: 70450; 99283

== ENCOUNTER → 2020-08-12 | Outpatient (CLI) | payer MEDICARE ==
--- NOTE | 2020-08-13 09:58 | MM ---
Reason for exam: additional evaluation requested from prior study. Last mammogram was performed 1 year ago. History: Patient is postmenopausal, has history of breast cancer at age 64, and had first child at age 34. Family history of breast cancer in maternal aunt at age 50 and breast cancer in maternal cousin. Malignant MG pre op needle loc LT of the left breast, November 15, 2015. Malignant MG stereo VAD BX LT of the left breast, October 28, 2015. Radiation therapy of the left breast, 2016. Took hormonal contraceptives for 2 months. Taking antineoplastic beginning at age 64. Physical Findings: Nurse did not find any significant physical abnormalities on exam. MG 3D Diag Mammo W/Cad JACOBO Bilateral CC and MLO view(s) were taken. Prior study comparison: August 08, 2019, bilateral MG 3d diag mammo w/cad JACOBO. August 05, 2018, bilateral MG 3d diag mammo w/cad JACOBO. There are scattered fibroglandular densities. Post operative changes on left. These results were verbally communicated with the patient and result sheet given to the patient on 08/12/20. ASSESSMENT: Benign, BI-RAD 2 RECOMMENDATION: Follow-up diagnostic mammogram of both breasts in 1 year.
== END | disposition home or self-care (01) ==
LOC: RADMAMWWP 11:02
PROVIDERS: ATTEND Radiology Radiation Oncology
DX: D05.12 Intraductal carcinoma in situ of left breast (principal); Z17.0 Estrogen receptor positive status [ER+]
CPT/HCPCS: 77066; G0279; 77062

== ENCOUNTER → 2021-01-26 | Outpatient (CLI) | payer MEDICARE ==
[2021-01-26 09:50] VITALS: BP 132/79; PULSE 80; RESP 18; TEMP 98.1
--- NOTE | 2021-01-26 12:37 | P.HPOB ---
History of Present Illness H&P Date: 01/26/21 Chief Complaint: The patient is here for her routine gynecologic exam. This is a 70-year-old with an LMP of 2001. The patient states that she has used Kenalog cream intermittently for vulvar pruritus with a history of vulvar lichen sclerosus. She states the cream has been helpful and has only needed to use it intermittently. The patient was offered treatment for osteoporosis with Fosamax after her 2020 bone density test. The patient states she did not do the labs that were required prior to starting the medication because she was uncertain as to whether she wanted to use medication for this. She is without gynecologic complaints and denies any postmenopausal bleeding. Review of Systems She is gained about 5 pounds over the past year. Respiratory: She does get slightly short of breath with exertion. He is currently undergoing a workup for this including stress test. She denies cardiac or GI problems. Past Medical History Past Medical History: Atrial Fibrillation, Asthma, Cancer, Hypertension, Osteoarthritis (OA), Pneumonia, Thyroid Disorder Additional Past Medical History / Comment(s): SCOLIOSIS, MIGRAINES, HX OF Left BREAST CANCER S/P LUMPECTOMY & RADIATION (2015)., OCCASIONAL VERTIGO., BACK PAIN. 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 History of lichen sclerosis by vulvar biopsy. History of Any Multi-Drug Resistant Organisms: None Reported Past Surgical History: Back Surgery, Breast Surgery, Section Additional Past Surgical History / Comment(s): JACOBO CATARACT SX-LENS IMPLANTS, HAS A GISELLE IN BACK, LOOP RECORDER INSERTION & REMOVAL., LEFT BREAST LUMPECTOMY (10/2015). Carpal tunnel surgery. Endometrial polyp removed with hysteroscopy and D& 2019. Colonoscopy 2011 . Past Anesthesia/Blood Transfusion Reactions: No Reported Reaction, Motion Sickness Past Psychological History: No Psychological Hx Reported Smoking Status: Never smoker Past Alcohol Use History: None Reported Past Drug Use History: None Reported Additional History: She is single and is not seeing anybody at this time and is not sexually active. 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 - Past Family History Father Family Medical History: Cancer, COPD, Osteoarthritis (OA) Additional Family Medical History / Comment(s): ALCOHOLIC Mother Family Medical History: No Reported History Additional Family Medical History / Comment(s): ALCOHOLIC/SMOKER. Grandmother had colon cancer and a cousin had breast cancer. Medications and Allergies Home Medications Medication Instructions Recorded Confirmed Type traMADol HCL [Ultram] 50 mg PO TID PRN 03/12/14 01/26/21 History diphenhydrAMINE [Benadryl] 25 mg PO BID PRN 11/12/15 01/26/21 History Levothyroxine Sodium [Levoxyl] 25 mcg PO DAILY 11/30/15 01/26/21 History Tamoxifen Citrate 20 mg PO DAILY 08/10/16 01/26/21 History Flecainide Acetate [Tambocor] 100 mg PO Q12HR 03/06/18 01/26/21 History Apixaban [Eliquis] 5 mg PO BID 01/06/20 01/26/21 History Loratadine [Claritin] 10 mg PO DAILY 03/30/20 01/26/21 History amLODIPine [Norvasc] 10 mg PO DAILY 01/26/21 01/26/21 History Allergies Allergy/AdvReac Type Severity Reaction Status Date / Time ciprofloxacin [From Cipro] Allergy Rash/Hives Verified 01/26/21 09:42 ciprofloxacin HCl Allergy Rash/Hives Verified 01/26/21 09:42 [From Cipro] fexofenadine HCl Allergy Rash/Hives Verified 01/26/21 09:42 [From Rupinder] amoxicillin [From Augmentin] AdvReac Nausea Verified 01/26/21 09:42 clavulanic acid AdvReac Nausea Verified 01/26/21 09:42 [From Augmentin] Yhzrroh-YDV-ReF Reductase AdvReac muscle Verified 01/26/21 09:42 Inhibitor cramps [Blygrie-Lhc-Mvf Reductase Inhibitor] theophylline anhydrous AdvReac headaches, Verified 01/26/21 09:42 [From Morteza-Dur] N/V Exam Vital Signs Temp Pulse Resp BP Pulse Ox 01/26/21 09:46 98.1 F 80 18 132/79 96 Intake and Output 01/25/21 01/26/21 01/26/21 22:59 06:59 14:59 Other: Weight 57.606 kg Height 5 foot 1 inch, weight 127 pounds, BMI 24.0. This is a well-developed well-nourished white female who is alert and oriented times 3 in no acute distress. HEENT: Within normal limits. NECK: Supple without mass or thyromegaly. CHEST AND LUNGS: Clear to auscultation. HEART: Regular rate and rhythm. BREASTS: Are without mass or discharge. There is some dimpling in the upper outer quadrant of the left breast consistent with her previous lumpectomy. There is a fleshy mole on the right breast at the 2 o'clock position that appears benign and measures 15 x 11 mm. The patient states she has had this since her . She denies any recent change. AXILLARY EXAM: Negative for adenopathy. BACK: Negative for CVA tenderness. Findings consistent with scoliosis. ABDOMEN: Soft, nontender, without palpable masses. PELVIC EXAM: External genitalia reveals moderate atrophy without focal lesions. There is minimal pallor. Cervix and vagina appear normal moderate atrophy. There is no unusual discharge. There is no evidence of prolapse. The uterus is midposition, nongravid size and nontender. There are no palpable adnexal masses or tenderness. RECTAL EXAM: Rectovaginal exam is negative for mass or tenderness and is negative for occult blood. EXTREMITIES: Nontender. IMPRESSION: 1. 70-year-old menopausal female with history of lichen sclerosus of the vulva improved with Kenalog cream as needed. 2. Previous Pap smear on 01/06/2020 showed ASCUS with negative high-risk HPV testing. 3. History of left breast cancer status post lumpectomy and radiation therapy with no evidence of recurrence on exam today. 4. History of osteoporosis and she remains uncertain as to whether she wants to take medication, such as Fosamax, for this. PLAN: 1. Pap smear was deferred and we will plan on repeating the Pap smear in 2021 because of the ASCUS Pap smear in 2019. 2. Self breast awareness was discussed with the patient. We have also discussed symptoms associated with inflammatory breast cancer. She was also instructed to notify us if she notices changes in the right breast skin mole that she states she has had since . 3. Bilateral mammogram will be due in July 2021. She states she gets her order slip from her radiation oncologist. 4. Osteoporosis management was discussed. I have stressed the importance of adequate calcium, vitamin D and regular exercise. Recommended amounts of calcium and vitamin D were also discussed. We have again discussed use of bisphosphonates for treatment of the osteoporosis. She will again consider this. Information on Fosamax and a lab slip for serum creatinine and calcium will be mailed to the patient. She will review the information again and if she desires to proceed with treatment with Fosamax, she will have the blood tests done. She did have concern about the need to remain in active after taking Fosamax, but I have assured her that inactivity is not needed, but she needs to stay upright after taking the medication for at least 30 minutes. 5. She will continue to use Kenalog cream twice a day as needed for vulvar irritation or itching. The electronic prescription will be sent to [facility] in [place]. 6. She has completed her Covid vaccination series. 7. She was advised to return in one year for her annual well woman exam and as needed.
== END | disposition home or self-care (01) ==
LOC: WWCWWP 09:15
PROVIDERS: ATTEND Obstetrics & Gynecology
DX: Z53.9 Procedure and treatment not carried out, unspecified reason (principal)

== ENCOUNTER → 2021-06-24 | Outpatient (CLI) | payer MEDICARE ==
[2021-06-24 14:31] LABS: Basophils # (A) 0.05 X 10*3/uL (0.00-0.10); Basophils % (A) 0.7 %; Eosinophils % (A) 2.9 %; HCT 41.6 % (37.2-46.3); HGB 12.5 g/dL (12.0-15.0); Immature Grans, Automated 0.3 %; Lymphocytes # (A) 1.18 X 10*3/uL (0.90-5.00); Lymphocytes % (A) 16.8 %; MCH 28.2 pg (27.0-32.0); MCV 93.9 fL (80.0-97.0); Mean Platelet Volume 10.9 fL (9.5-12.2); Monocytes # (A) 0.61 X 10*3/uL (0.20-1.00); Monocytes % (A) 8.7 %; NRBC Per 100 WBC 0 /100 WBCS (0.0-0.0); Neutrophils # (A) 4.95 X 10*3/uL (1.80-7.70); Neutrophils % (A) 70.6 %; Platelet Count 257 X 10*3/uL (140-440); RBC 4.43 X 10*6/uL (4.10-5.20); WBC 7.01 X 10*3/uL (4.50-10.00)
[2021-06-24 14:52] LABS: ALT 8 U/L (8-44); AST 17 U/L (13-35); African American GFR (CKD) 101.7 (60.0-200.0); Albumin 4.1 g/dL (3.8-4.9); Albumin/Globulin Ratio 1.46 (1.60-3.17); Alkaline Phosphatase 77 U/L (41-126); BUN/Creat Ratio 18.86 Ratio (12.00-20.00); Blood Urea Nitrogen 13.2 mg/dL (9.0-27.0); Calcium 9.3 mg/dL (8.7-10.3); Carbon Dioxide 27.3 mmol/L (20.0-27.5); Chloride 103 mmol/L (96-109); Chol/HDL Ratio 2.22 Ratio; Globulin 2.8 g/dL (1.6-3.3); Glucose 96 mg/dL (70-110); Non-African American GFR(CKD) 87.8 (60.0-200.0); Potassium 5.4 mmol/L (3.5-5.5); Sodium 138 mmol/L (135-145); Total Protein 6.9 g/dL (6.2-8.2); VLDL Calculation 10.74 mg/dL (5.00-40.00)
== END | disposition home or self-care (01) ==
LOC: LABWHC1 08:54
PROVIDERS: ATTEND Internal Medicine
DX: Z00.00 Encounter for general adult medical examination without abnormal findings (principal)
CPT/HCPCS: 36415; 80053; 80061; 84439; 84443; 85025

== ENCOUNTER 2021-08-05 11:44 | Day surgery (SDC) | payer MEDICARE ==
[2021-08-03 12:48] VITALS: BMI 23.8
[~2021-08-05 11:44] MED LIST changes: -DEXAMETHASONE SOD PHOSPHATE 10 MG/ML 1 ML VIAL IV ONE; -HYDROmorphone 0.5 MG/0.5 ML SYRINGE IVP PRN; +LIDOCAINE 1% (10MG/ML) FOR IV START INTRADERMA PRN; -LIDOCAINE 1% 20 ML VIAL (10MG/ML) FOR IV START INTRADERMA PRN; -ONDANSETRON 4 MG/2 ML VIAL IVP ONE; -Pre Op ABX Message 1 EACH MISC MISCELLANE ONE; -SCOPOLAMINE 1.5MG/72HR PATCH TRANSDERM ONE
[2021-08-05 12:07] VITALS: TEMP 98.7
[2021-08-05] MEDS ORDERED: PROPOFOL 10 MG/ML 20 ML VIAL IV ONE (12:44)
--- NOTE | 2021-08-05 13:06 | P.OP ---
Date of Procedure: 08/05/21 Preoperative Diagnosis: Screening Postoperative Diagnosis: Diverticulosis Procedure(s) Performed: Colonoscopy Anesthesia: ATUL Surgeon: Yobani Carolina Condition: stable Disposition: same day Description of Procedure: Patient is brought operative suite remained in the left lateral decubitus position underwent sedation per department of anesthesia timeout performed correct patient correct procedure correct site was verified rectal exam was performed no gross abnormalities are noted scope was passed from the rectum to the cecum with ease and slowly withdrawn make sure to visualize all xavier of the colon on the way out there were some sigmoid diverticuli noted no other gross abnormality scope was retroflexed and no gross abnormalities were noted scope was removed patient tolerated the procedure well there are no apparent complications she does not require any further repeat screening colonoscopy.
[2021-08-05 13:28] VITALS: RESP 15
[2021-08-05 13:38] VITALS: BP 133/79; PULSE 63
== END 2021-08-05 13:51 | disposition home or self-care (01) ==
LOC: ORWHC2ENDO 11:44
PROVIDERS: ATTEND Student in an Organized Health Care Education/Training Program
DX: K57.30 Diverticulosis of large intestine without perforation or abscess without bleeding (principal); J45.909 Unspecified asthma, uncomplicated; I48.91 Unspecified atrial fibrillation; E07.9 Disorder of thyroid, unspecified; M19.90 Unspecified osteoarthritis, unspecified site; I10 Essential (primary) hypertension; M41.9 Scoliosis, unspecified; Z82.49 Family history of ischemic heart disease and other diseases of the circulatory system; Z85.9 Personal history of malignant neoplasm, unspecified; Z79.899 Other long term (current) drug therapy; Z79.01 Long term (current) use of anticoagulants; Z88.8 Allergy status to other drugs, medicaments and biological substances; Z88.0 Allergy status to penicillin
CPT/HCPCS: 45378; J2704

== ENCOUNTER → 2021-08-15 | Outpatient (CLI) | payer MEDICARE ==
--- NOTE | 2021-08-15 11:39 | MM ---
Reason for Exam: Follow-up at short interval from prior study. Last screening mammogram was performed 12 month(s) ago. Patient History: Menarche at age 14. First Full-Term at age 34. Late child-bearing (after 30). Postmenopausal. Breast cancer, age 64. Hormonal Contraceptives for 2 months. 11/15/2015, Malignant Core Biopsy on the left side. 10/28/2015, Malignant Core Biopsy on the left side. 2016, Radiation Therapy on the left side. Maternal cousin had breast cancer. Maternal aunt had breast cancer, age 50. Tissue Density: The breast tissue is heterogeneously dense. This may lower the sensitivity of mammography. Findings: Analyzed By CAD. Postop biopsy changes are stable within the left breast. No suspicious spiculated or lobular masses clustered microcalcifications or architectural distortion to suggest developing malignancy is radiographically apparent. Overall Assessment: Benign, BI-RAD 2 Management: Screening Mammogram of both breasts in 1 year. A clinical breast exam by your physician is recommended on an annual basis and results should be correlated with mammographic findings. This exam should not preclude additional follow-up of suspicious palpable abnormalities. Results were given to the patient verbally at the time of exam. Patient should continue monthly self breast exam. Electronically signed and approved by: Andry Araiza D.O. Radiologis
== END | disposition home or self-care (01) ==
LOC: RADMAMWWP 11:00
PROVIDERS: ATTEND Radiology Radiation Oncology
DX: Z08 Encounter for follow-up examination after completed treatment for malignant neoplasm (principal); D05.12 Intraductal carcinoma in situ of left breast; Z17.0 Estrogen receptor positive status [ER+]; Z86.000 Personal history of in-situ neoplasm of breast
CPT/HCPCS: 77066; G0279; 77062

== ENCOUNTER 2021-09-04 09:00 | Emergency (ER) | payer MEDICARE ==
[2021-09-04] MEDS ORDERED: MORPHINE SULFATE 2 MG/ML SYRINGE IM STA (09:24)
[2021-09-04] MEDS ORDERED: DEXAMETHASONE SOD PHOSPHATE 10 MG/ML 1 ML VIAL IM STA (09:27)
--- NOTE | 2021-09-04 09:35 | ED ---
Extremity Problem HPI - General Chief complaint: Extremity Problem,Nontraumatic Stated complaint: L hip pain, R shoulder pain Time Seen by Provider: 09/04/21 09:10 Source: patient, family, RN notes reviewed Mode of arrival: ambulatory Limitations: no limitations - History of Present Illness Initial comments: This is a 70-year-old female who presents to the emergency department for right shoulder pain and left hip pain. Right shoulder pain began approximately 6 days ago. Patient states that with her arthritis she tends to have intermittent flareups of joint pain. Oftentimes she is able to work this out with movement, however this time symptoms continue to persist. The left hip pain began approximately 4 days ago. This is similar to the shoulder pain, in that she is typically able to improve this with movement such as ambulation. However, at this time she has been unable to control her symptoms. Denies any injuries. 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 Also notes that her left leg is shorter than the right, and this typically causes problems for her. She does take tramadol daily for the arthritis, however this has not been improving her symptoms. Denies any fevers, chills, sore throat, cough, dyspnea, chest pain, palpitations, abdominal pain, nausea, vomiting, diarrhea, back pain, or headaches. - Related Data Home Medications Medication Instructions Recorded Confirmed traMADol HCL [Ultram] 50 mg PO TID PRN 03/12/14 08/03/21 diphenhydrAMINE [Benadryl] 25 mg PO BID PRN 11/12/15 08/03/21 Levothyroxine Sodium [Levoxyl] 25 mcg PO DAILY 11/30/15 08/03/21 Tamoxifen Citrate 20 mg PO DAILY 08/10/16 08/03/21 Flecainide Acetate [Tambocor] 100 mg PO Q12HR 03/06/18 08/03/21 Apixaban [Eliquis] 5 mg PO BID 01/06/20 08/03/21 Loratadine [Claritin] 10 mg PO DAILY 03/30/20 08/03/21 amLODIPine [Norvasc] 10 mg PO DAILY 01/26/21 08/03/21 Previous Rx's Medication Instructions Recorded Triamcinolone 0.1% Cream [Kenalog 1 applicatio TOPICAL BID PRN #30 gm 01/26/21 0.1% Cream] Allergies Allergy/AdvReac Type Severity Reaction Status Date / Time ciprofloxacin [From Cipro] Allergy Rash/Hives Verified 09/04/21 09:08 ciprofloxacin HCl Allergy Rash/Hives Verified 09/04/21 09:08 [From Cipro] fexofenadine HCl Allergy Rash/Hives Verified 09/04/21 09:08 [From Rupinder] amoxicillin [From Augmentin] AdvReac Nausea Verified 09/04/21 09:08 clavulanic acid AdvReac Nausea Verified 09/04/21 09:08 [From Augmentin] Disqxxz-XEN-UkB Reductase AdvReac muscle Verified 09/04/21 09:08 Inhibitor cramps [Phwgbeb-Zyb-Ccd Reductase Inhibitor] theophylline anhydrous AdvReac headaches, Verified 09/04/21 09:08 [From Morteza-Dur] N/V Review of Systems ROS Statement: Those systems with pertinent positive or pertinent negative responses have been documented in the HPI. ROS Other: All systems not noted in ROS Statement are negative. Past Medical History Past Medical History: Atrial Fibrillation, Asthma, Cancer, Hypertension, Osteoarthritis (OA), Pneumonia, Thyroid Disorder Additional Past Medical History / Comment(s): SCOLIOSIS, MIGRAINES, HX OF Left BREAST CANCER S/P LUMPECTOMY & RADIATION (2016)., OCCASIONAL VERTIGO., BACK PAIN. 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 History of Any Multi-Drug Resistant Organisms: None Reported Past Surgical History: Back Surgery, Breast Surgery, Section Additional Past Surgical History / Comment(s): JACOBO CATARACT SX-LENS IMPLANTS, HAS A GISELLE IN BACK, LOOP RECORDER INSERTION & REMOVAL., LEFT BREAST LUMPECTOMY (10/2015). Carpal tunnel surgery. Endometrial polyp removed with hysteroscopy and D& 2019. Colonoscopy 2011 . Past Anesthesia/Blood Transfusion Reactions: No Reported Reaction Additional Past Anesthesia/Blood Transfusion Reaction / Comment(s): DENIES MOTION SICKNESS Past Psychological History: No Psychological Hx Reported Smoking Status: Never smoker Past Alcohol Use History: None Reported Past Drug Use History: None Reported - Past Family History Father Family Medical History: Cancer, COPD, Osteoarthritis (OA) Additional Family Medical History / Comment(s): ALCOHOLIC Mother Family Medical History: No Reported History Additional Family Medical History / Comment(s): ALCOHOLIC/SMOKER. Grandmother had colon cancer and a cousin had breast cancer. General Exam Limitations: no limitations General appearance: alert, in no apparent distress Head exam: Present: atraumatic, normocephalic, normal inspection Respiratory exam: Present: normal lung sounds bilaterally. Absent: respiratory distress, wheezes, rales, rhonchi, stridor Cardiovascular Exam: Present: regular rate, normal rhythm, normal heart sounds. Absent: systolic murmur, diastolic murmur, rubs, gallop, clicks Right Shoulder Exam: Present: tenderness (Superior most aspect of the humerus). Absent: full ROM (Secondary to pain), swelling, abrasion, deformity, crepitus, erythema Vascular: Present: normal capillary refill, radial pulse (2+). Absent: vascular compromise, Pallo Left Hip exam: Present: normal inspection. Absent: full ROM (Secondary to pain), tenderness, swelling, ecchymosis, deformity, crepitus, dislocation, external rotation, internal rotation Neurovascular tendon exam: Present: no vascular compromise. Absent: pulse deficit, abnormal cap refill, motor deficit, sensory deficit, extremity cold to touch, pallor Neurological exam: Present: alert, oriented X3, CN II-XII intact Psychiatric exam: Present: normal affect, normal mood Skin exam: Present: warm, dry, intact, normal color. Absent: rash Course Vital Signs 09/04/21 09/04/21 09:06 09:45 Temperature 98.2 F 98.5 F Pulse Rate 79 81 Respiratory 20 18 Rate Blood Pressure 125/82 131/86 O2 Sat by Pulse 96 95 Oximetry Medical Decision Making - Medical Decision Making This is a 70-year-old female who presents to the emergency department with right shoulder and left hip pain. X-rays reveal no acute abnormalities and are consistent with the patient's known history of osteoarthritis. She was given IM Toradol and IM Decadron and reported substantial improvement in her symptoms. Advised she try to take it easy at work and avoid any strenuous activities. She should also follow up with Dr. Kaplan, her orthopedic provider for reevaluation of symptoms. She may need physical therapy or alternative treatment if symptoms persist. Return precautions reviewed in depth, the patient is instructed to return to the emergency department with any new, worsening, or concerning symptoms. Patient verbalized understanding. This case was discussed in detail with the attending ED physician. Presentation, findings, and treatment plan discussed in detail as well. - Radiology Data Radiology results: report reviewed, image reviewed Disposition Clinical Impression: Right shoulder pain, Left hip pain Disposition: HOME SELF-CARE Instructions (If sedation given, give patient instructions): Arthralgia (ED), Arthritis (ED) Additional Instructions: Return to the emergency department with any new, worsening, or concerning symptoms. Follow-up with your orthopedic provider regarding the right shoulder and left hip pain. If symptoms persist, you may need physical therapy. Is patient prescribed a controlled substance at d/c from ED?: No Referrals: John Hickey MD [Primary Care Provider] - 1-2 days
[2021-09-04 09:46] VITALS: RESP 18
--- NOTE | 2021-09-04 09:46 | XR ---
EXAMINATION TYPE: XR shoulder complete RT DATE OF EXAM: 09/04/2021 CLINICAL HISTORY: Pain. TECHNIQUE: Three views of the right shoulder are obtained. COMPARISON: None. FINDINGS: Osseous structures are demineralized. There is no acute fracture/dislocation evident in th e right shoulder. Moderate narrowing at acromioclavicular joint. Glenohumeral joint is maintained. T he visualized ribs are intact. Surgical change from scoliosis correction surgery is partially imaged. Overlying bra strap. IMPRESSION: As above.
--- NOTE | 2021-09-04 09:47 | XR ---
EXAMINATION TYPE: XR Hip Complete LT DATE OF EXAM: 09/04/2021 CLINICAL HISTORY: Pain. TECHNIQUE: AP and frogleg views of the left hip are obtained. COMPARISON: None. FINDINGS: There is no acute fracture/dislocation evident in the left hip. Moderate axial joint space loss left hip with mild head neck collar spurring. The overlying soft tissue appears unremarkable. IMPRESSION: As above.
[2021-09-04 10:43] VITALS: BP 120/84; PULSE 71; TEMP 98.2
== END 2021-09-04 10:44 | disposition home or self-care (01) ==
LOC: EC 09:00
DX: M25.511 Pain in right shoulder (principal); M25.552 Pain in left hip; J45.909 Unspecified asthma, uncomplicated; I10 Essential (primary) hypertension; E07.9 Disorder of thyroid, unspecified; I48.91 Unspecified atrial fibrillation; Z88.8 Allergy status to other drugs, medicaments and biological substances; Z88.1 Allergy status to other antibiotic agents; Z88.0 Allergy status to penicillin; Z79.899 Other long term (current) drug therapy; Z79.890 Hormone replacement therapy
CPT/HCPCS: 73502; 73030; 99283; 96372; J1100; J2270

== ENCOUNTER 2021-10-09 11:13 | Emergency (ER) | payer MEDICARE ==
[2021-10-09 12:10] VITALS: BP 113/72; PULSE 80; RESP 18; TEMP 98.6
[2021-10-09] MEDS ORDERED: HYDROcodone/APAP 5-325MG 1 EACH TAB PO STA (13:59)
--- NOTE | 2021-10-09 14:06 | ED ---
General Adult HPI - General Chief complaint: Extremity Problem,Nontraumatic Stated complaint: Left leg pain Time Seen by Provider: 10/09/21 13:46 Source: patient Mode of arrival: wheelchair Limitations: no limitations - History of Present Illness Initial comments: Dictation was produced using [employer] dictation software. please excuse any grammatical, word or spelling errors. Chief Complaint: 70-year-old male presents emergency department for left hip pain History of Present Illness: 70-year-old female presents emergency department for atraumatic left hip pain. Patient states that her symptoms have been ongoing for several weeks. Patient reports being diagnosed recently with osteoarthritis of the left hip. Patient was prescribed tramadol. Patient states that tramadol does little to improve her symptoms. She has not followed up with orthopedic surgery. Patient has any fever. She does report that the pain rate is down to her calf whenever she flexes at the hip. The ROS documented in this emergency department record has been reviewed and confirmed by me. Those systems with pertinent positive or negative responses have been documented in the HPI. All other systems are other negative and/or noncontributory. PHYSICAL EXAM: General Impression: Alert and oriented x3, not in acute distress HEENT: Normocephalic atraumatic, extra-ocular movements intact, pupils equal and reactive to light bilaterally, mucous membranes moist. Cardiovascular: Heart regular rate and rhythm Chest: Able to complete full sentences, no retractions, no tachypnea Musculoskeletal: Pulses present and equal in all extremities, no peripheral edema Motor: no focal deficits noted Left hip: Palpatory tenderness to the left hip, patient reports spasmodic contractions to the left thigh with flexion of the left hip Neurological: CN II-XII grossly intact, no focal motor or sensory deficits noted Skin: Intact with no visualized rashes Psych: Normal affect and mood ED course: 70 female presents emergency department for acute on chronic atraumatic left hip pain. Vital signs upon arrival are within acceptable limits. X-ray unremarkable. Patient discharged with by mouth analgesics. Advised follow-up with primary care doctor. - Related Data Home Medications Medication Instructions Recorded Confirmed traMADol HCL [Ultram] 50 mg PO TID PRN 03/12/14 08/03/21 diphenhydrAMINE [Benadryl] 25 mg PO BID PRN 11/12/15 08/03/21 Levothyroxine Sodium [Levoxyl] 25 mcg PO DAILY 10/04/16 06/08/22 Tamoxifen Citrate 20 mg PO DAILY 08/10/16 08/03/21 Flecainide Acetate [Tambocor] 100 mg PO Q12HR 03/06/18 08/03/21 Apixaban [Eliquis] 5 mg PO BID 01/06/20 08/03/21 Loratadine [Claritin] 10 mg PO DAILY 03/30/20 08/03/21 amLODIPine [Norvasc] 10 mg PO DAILY 01/26/21 08/03/21 Previous Rx's Medication Instructions Recorded Triamcinolone 0.1% Cream [Kenalog 1 applicatio TOPICAL BID PRN #30 gm 01/26/21 0.1% Cream] HYDROcodone/APAP 5-325MG [[place] 1 tab PO Q6HR PRN 3 Days #12 tab 10/09/21 5-325] Allergies Allergy/AdvReac Type Severity Reaction Status Date / Time ciprofloxacin [From Cipro] Allergy Rash/Hives Verified 10/09/21 12:07 ciprofloxacin HCl Allergy Rash/Hives Verified 10/09/21 12:07 [From Cipro] fexofenadine HCl Allergy Rash/Hives Verified 10/09/21 12:07 [From Rupinder] amoxicillin [From Augmentin] AdvReac Nausea Verified 10/09/21 12:07 clavulanic acid AdvReac Nausea Verified 10/09/21 12:07 [From Augmentin] Goemczx-DOK-IuZ Reductase AdvReac muscle Verified 10/09/21 12:07 Inhibitor cramps [Rqhgftl-Dlt-Uum Reductase Inhibitor] theophylline anhydrous AdvReac headaches, Verified 10/09/21 12:07 [From Morteza-Dur] N/V Review of Systems ROS Statement: Those systems with pertinent positive or pertinent negative responses have been documented in the HPI. ROS Other: All systems not noted in ROS Statement are negative. Past Medical History Past Medical History: Atrial Fibrillation, Asthma, Cancer, Hypertension, Osteoarthritis (OA), Pneumonia, Thyroid Disorder Additional Past Medical History / Comment(s): SCOLIOSIS, MIGRAINES, HX OF Left BREAST CANCER S/P LUMPECTOMY & RADIATION (2016)., OCCASIONAL VERTIGO., BACK PAIN. 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 History of Any Multi-Drug Resistant Organisms: None Reported Past Surgical History: Back Surgery, Breast Surgery, Section Additional Past Surgical History / Comment(s): JACOBO CATARACT SX-LENS IMPLANTS, HAS A GISELLE IN BACK, LOOP RECORDER INSERTION & REMOVAL., LEFT BREAST LUMPECTOMY (10/2015). Carpal tunnel surgery. Endometrial polyp removed with hysteroscopy and D& 2019. Colonoscopy 2012 . Past Anesthesia/Blood Transfusion Reactions: No Reported Reaction Additional Past Anesthesia/Blood Transfusion Reaction / Comment(s): DENIES MOTION SICKNESS Past Psychological History: No Psychological Hx Reported Smoking Status: Never smoker Past Alcohol Use History: None Reported Past Drug Use History: None Reported - Past Family History Father Family Medical History: Cancer, COPD, Osteoarthritis (OA) Additional Family Medical History / Comment(s): ALCOHOLIC Mother Family Medical History: No Reported History Additional Family Medical History / Comment(s): ALCOHOLIC/SMOKER. Grandmother had colon cancer and a cousin had breast cancer. General Exam Limitations: no limitations Course Vital Signs 10/09/21 12:08 Temperature 98.6 F Pulse Rate 80 Respiratory 18 Rate Blood Pressure 113/72 O2 Sat by Pulse 97 Oximetry Disposition Clinical Impression: Hip pain Disposition: HOME SELF-CARE Condition: Good Instructions (If sedation given, give patient instructions): Hip Pain (ED) Prescriptions: HYDROcodone/APAP 5-325MG [[place] 5-325] 1 tab PO Q6HR PRN 3 Days #12 tab PRN Reason: Severe Pain Is patient prescribed a controlled substance at d/c from ED?: Yes If prescribed controlled substance>3 days was MAPS reviewed?: Prescribed <3 Days Referrals: John Hickey MD [Primary Care Provider] - 1-2 days Time of Disposition: 14:48
--- NOTE | 2021-10-09 14:22 | XR ---
EXAMINATION TYPE: XR Hip Complete LT DATE OF EXAM: 10/09/2021 2:18 PM INDICATION: Patient age:Female; 70 years old; Reason for study: chronic hip pain; PHH. COMPARISON: None. TECHNIQUE: The left hip was examined in the frontal and lateral projections and a AP pelvis. FINDINGS: Mild posterior formation of the acetabulum. Mild joint space narrowing is present. No evide nce for acute process, joint dislocation or significant soft tissue swelling. IMPRESSION: 1. No acute process. 2. Mild left hip osteoporosis.
== END 2021-10-09 15:21 | disposition home or self-care (01) ==
LOC: EC 11:13
DX: M25.552 Pain in left hip (principal); J45.909 Unspecified asthma, uncomplicated; I10 Essential (primary) hypertension; E07.9 Disorder of thyroid, unspecified; Z79.899 Other long term (current) drug therapy; Z88.8 Allergy status to other drugs, medicaments and biological substances; Z88.0 Allergy status to penicillin; Z88.6 Allergy status to analgesic agent
CPT/HCPCS: 73502

== ENCOUNTER → 2021-11-08 | Outpatient (CLI) | payer MEDICARE ==
[2021-11-08 08:48] VITALS: BP 122/75; PULSE 87; RESP 18; TEMP 96.9
--- NOTE | 2021-11-08 09:43 | P.HPOB ---
History of Present Illness H&P Date: 11/08/21 Chief Complaint: The patient is here for her routine gynecologic exam. This is a 78-year-old with an LNMP of 2001. The patient states she started having period like vaginal bleeding 12 days ago. It was very light yesterday but she again had more bleeding today. She has been on tamoxifen because of her history of breast cancer. She had previous postmenopausal bleeding on tamoxifen in 2018 and underwent a hysteroscopy with D&C on 03/11/2018. This had benign findings including a benign polyp. The procedure was done by Dr. Barbosa. She had not had any postmenopausal bleeding until 12 days ago. She still uses Kenalog cream periodically for vulvar pruritus. Review of Systems The patient has lost 7 pounds over the last year. She denies respiratory, cardiac, or G.I. problems. Past Medical History Past Medical History: Atrial Fibrillation, Asthma, Cancer, Hypertension, Osteoarthritis (OA), Pneumonia, Thyroid Disorder Additional Past Medical History / Comment(s): SCOLIOSIS, MIGRAINES, HX OF Left BREAST CANCER S/P LUMPECTOMY & RADIATION (2015)., OCCASIONAL VERTIGO., BACK PAIN. 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 History of Any Multi-Drug Resistant Organisms: None Reported Past Surgical History: Back Surgery, Breast Surgery, Section Additional Past Surgical History / Comment(s): JACOBO CATARACT SX-LENS IMPLANTS, HAS A GISELLE IN BACK, LOOP RECORDER INSERTION & REMOVAL., LEFT BREAST LUMPECTOMY (10/2015). Carpal tunnel surgery. Endometrial polyp removed with hysteroscopy and D& 2018. Colonoscopy 2021 . Past Anesthesia/Blood Transfusion Reactions: No Reported Reaction Additional Past Anesthesia/Blood Transfusion Reaction / Comment(s): DENIES MOTION SICKNESS Past Psychological History: No Psychological Hx Reported Smoking Status: Never smoker Past Alcohol Use History: None Reported Past Drug Use History: None Reported Additional History: She is single and is not seeing anybody at this time and is not sexually active. - Past Family History Father Family Medical History: Cancer, COPD, Osteoarthritis (OA) Additional Family Medical History / Comment(s): ALCOHOLIC Mother Family Medical History: No Reported History Additional Family Medical History / Comment(s): ALCOHOLIC/SMOKER. Grandmother had colon cancer and a cousin had breast cancer. Medications and Allergies Home Medications Medication Instructions Recorded Confirmed Type traMADol HCL [Ultram] 50 mg PO TID PRN 03/12/14 11/08/21 History diphenhydrAMINE [Benadryl] 25 mg PO BID PRN 11/12/15 11/08/21 History Levothyroxine Sodium [Levoxyl] 25 mcg PO DAILY 11/30/15 11/08/21 History Tamoxifen Citrate 20 mg PO DAILY 08/10/16 11/08/21 History Flecainide Acetate [Tambocor] 100 mg PO Q12HR 03/06/18 11/08/21 History Apixaban [Eliquis] 5 mg PO BID 01/06/20 11/08/21 History Loratadine [Claritin] 10 mg PO DAILY 03/30/20 11/08/21 History Triamcinolone 0.1% Cream [Kenalog 1 applicatio TOPICAL BID PRN #30 gm 01/26/21 11/08/21 Rx 0.1% Cream] amLODIPine [Norvasc] 10 mg PO DAILY 01/26/21 11/08/21 History HYDROcodone/APAP 5-325MG [[place] 1 tab PO Q6HR PRN 3 Days #12 tab 10/09/21 11/08/21 Rx 5-325] Allergies Allergy/AdvReac Type Severity Reaction Status Date / Time ciprofloxacin [From Cipro] Allergy Rash/Hives Verified 11/08/21 08:42 ciprofloxacin HCl Allergy Rash/Hives Verified 11/08/21 08:42 [From Cipro] fexofenadine HCl Allergy Rash/Hives Verified 11/08/21 08:42 [From Rupinder] amoxicillin [From Augmentin] AdvReac Nausea Verified 11/08/21 08:42 clavulanic acid AdvReac Nausea Verified 11/08/21 08:42 [From Augmentin] Rqrodbe-LDZ-XpK Reductase AdvReac muscle Verified 11/08/21 08:42 Inhibitor cramps [Mhakolv-Klk-Kcm Reductase Inhibitor] theophylline anhydrous AdvReac headaches, Verified 11/08/21 08:42 [From Morteza-Dur] N/V Exam Vital Signs Temp Pulse Resp BP Pulse Ox 11/08/21 08:45 96.9 F L 87 18 122/75 95 Intake and Output 11/07/21 11/08/21 11/08/21 22:59 06:59 14:59 Other: Weight 54.431 kg Height 5 feet 1 inch, weight 120 pounds, BMI 22.7. This is a well-developed well-nourished white female who is alert and oriented times 3 in no acute distress. HEENT: Within normal limits. NECK: Supple without mass or thyromegaly. CHEST AND LUNGS: Clear to auscultation. HEART: Regular rate and rhythm. BREASTS: Are without mass or discharge. AXILLARY EXAM: Negative for adenopathy. BACK: Negative for CVA tenderness. Findings are consistent with scoliosis. ABDOMEN: Soft, nontender, without palpable masses. PELVIC EXAM: Normal external genitalia with moderate atrophy without significant pallor. There are no focal lesions on the vulva. Cervix and vagina revealed menstrual type blood without lesions. There is moderate vaginal and cervical atrophy. There is no evidence of prolapse. The uterus is midposition, nongravid size and nontender. There are no palpable adnexal masses or tenderness. RECTAL EXAM: Rectovaginal exam is negative for mass or tenderness and is negative for occult blood. EXTREMITIES: Nontender. IMPRESSION: 1. 70-year-old menopausal female with recent postmenopausal bleeding which may or may not be related to tamoxifen use. 2. History of osteoporosis. 3. History of left breast cancer status post lumpectomy and radiation therapy with no evidence of recurrence on exam today. 4. Previous Pap smear done on 01/06/2020 showed ASCUS with negative high-risk HPV testing. PLAN: 1. Pap smear cotest was performed. This was done because of her previous ASCUS Pap smear. 2. Self breast awareness was discussed with the patient. We have also discussed symptoms associated with inflammatory breast cancer. 3. Diagnostic mammogram was done on 08/15/2021 and was benign. 4. The patient will be referred to Dr. Barbosa for endometrial sampling, possible hysteroscopy with D&C. She had seen Dr. Barbosa for postmenopausal bleeding in 2018. 5. Osteoporosis management was discussed. I have stressed the importance of adequate calcium, vitamin D and regular exercise. Recommended amounts of calcium and vitamin D were also discussed. She would now like to start medication for osteoporosis. She previously was uncertain. She had a normal creatinine and normal calcium on 06/19/2021. Fosamax 70 mg by mouth every week will be started. We have discussed possible risks including risk for esophageal ulceration and osteonecrosis of the jaw. She states she does not have any upcoming jaw or dental surgery planned. The electronic prescription [facility] in [place]. 6. Kenalog 0.1% cream twice a day when necessary for vulvar pruritus. The electronic prescription will be sent to [facility] pharmacy in [place]. 7. She has completed her Covid vaccination series and has received 2 boosters. 8. She will also return in 1 year and as needed.
== END ==
LOC: WWCWWP 08:28
PROVIDERS: ATTEND Obstetrics & Gynecology
DX: Z01.419 Encounter for gynecological examination (general) (routine) without abnormal findings (principal); N95.0 Postmenopausal bleeding; Z87.39 Personal history of other diseases of the musculoskeletal system and connective tissue; Z85.3 Personal history of malignant neoplasm of breast; I48.91 Unspecified atrial fibrillation; J45.909 Unspecified asthma, uncomplicated; I10 Essential (primary) hypertension; M19.90 Unspecified osteoarthritis, unspecified site; G43.909 Migraine, unspecified, not intractable, without status migrainosus; Z79.01 Long term (current) use of anticoagulants; Z88.1 Allergy status to other antibiotic agents; Z88.8 Allergy status to other drugs, medicaments and biological substances

== ENCOUNTER → 2021-12-06 | Outpatient (CLI) | payer MEDICARE ==
[2021-12-06 10:23] LABS: Basophils # (A) 0.07 X 10*3/uL (0.00-0.10); Eosinophils # (A) 0.23 X 10*3/uL (0.04-0.35); Eosinophils % (A) 3.4 %; HCT 38.6 % (37.2-46.3); Immature Grans, Automated 0.3 %; Lymphocytes # (A) 1.24 X 10*3/uL (0.90-5.00); Lymphocytes % (A) 18.4 %; MCH 29.2 pg (27.0-32.0); MCHC 31.1 g/dL (32.0-37.0); MCV 93.9 fL (80.0-97.0); Mean Platelet Volume 11.5 fL (9.5-12.2); Monocytes % (A) 8.9 %; NRBC Per 100 WBC 0 /100 WBCS (0.0-0.0); Neutrophils # (A) 4.59 X 10*3/uL (1.80-7.70); Platelet Count 262 X 10*3/uL (140-440); RBC 4.11 X 10*6/uL (4.10-5.20); RDW 13.8 % (11.5-14.5); WBC 6.75 X 10*3/uL (4.50-10.00)
== END | disposition home or self-care (01) ==
LOC: LABPAT 08:06
PROVIDERS: ATTEND Obstetrics & Gynecology
DX: N95.0 Postmenopausal bleeding (principal)
CPT/HCPCS: 85025

== ENCOUNTER 2021-12-27 09:27 | Day surgery (SDC) | payer MEDICARE ==
[2021-12-22 16:28] VITALS: BMI 22.6
[~2021-12-27 09:27] MED LIST changes: +DEXAMETHASONE SOD PHOSPHATE 4 MG/ML 1 ML VIAL IV ONE; -LIDOCAINE 1% (10MG/ML) FOR IV START INTRADERMA PRN; +MORPHINE SULFATE 4 MG/ML SYRINGE IV PRN; +ONDANSETRON 4 MG/2 ML VIAL IVP ONE; +Pre Op ABX Message 1 EACH MISC MISCELLANE ONE
[2021-12-27 10:07] VITALS: TEMP 97.7
[2021-12-27] MEDS ORDERED: PROPOFOL 10 MG/ML 20 ML VIAL IV ONE (11:11)
[2021-12-27] MEDS ORDERED: fentaNYL (PF) 50 MCG/ML 2 ML AMP ONE (11:11)
[2021-12-27] MEDS ORDERED: SUCCINYLCHOLINE CHLORIDE 200 MG/10 ML VIAL IV ONE (11:11)
[2021-12-27] MEDS ORDERED: LIDOCAINE 2% INJ 20 MG/ML (2 ML VIAL) ONE (11:11)
[2021-12-27] MEDS ORDERED: SIMETHICONE 80 MG CHEWABLE PO PRN (11:43)
[2021-12-27] MEDS ORDERED: Acetaminophen-Codeine 300-30mg TAB PO PRN ×2 (11:43)
[2021-12-27] MEDS ORDERED: IBUPROFEN 600 MG TAB PO PRN (11:43)
[2021-12-27] MEDS ORDERED: KETOROLAC 15 MG/ML 1 ML VIAL IVP PRN (11:43)
[2021-12-27] MEDS ORDERED: ONDANSETRON 4 MG/2 ML VIAL IVP PRN (11:43)
[2021-12-27] MEDS ORDERED: METOCLOPRAMIDE 5 MG/ML 2 ML VIAL IVP PRN (11:43)
[2021-12-27] MEDS ORDERED: LACTATED RINGERS 1,000 ML IV SCH (11:45)
--- NOTE | 2021-12-27 11:52 | P.OP ---
Date of Procedure: 12/27/21 Preoperative Diagnosis: #1. Postmenopausal bleeding #2. Thickened endometrial lining Postoperative Diagnosis: Same Procedure(s) Performed: #1. Diagnostic hysteroscopy #2. Dilation and curettage Anesthesia: ATUL Surgeon: Lawrence Barbosa Estimated Blood Loss (ml): 5 IV fluids (ml): 300 Urine output (ml): 50 Pathology: other (Endometrial curettings, scant) Condition: stable Disposition: PACU Operative Findings: Preoperative pelvic examination demonstrated a atrophic to 4 weeks size anteverted mobile normal shaped uterus with normal adnexa bilaterally. Intraoperatively, the vagina was very small in diameter making visualization of the cervix difficult. Once it was visualized, the anterior lip of the cervix was grasped with a single-tooth tenaculum. The bladder was catheterized approximately 50 mL of clear anjelica urine. Using the small dilator, I was able to penetrate the stenotic cervical opening and dilated to some extent. The depth of the uterine cavity was 5 cm it was felt that that was the true depth of the cavity. The hysteroscope demonstrated only atrophic findings with what appeared to be bilateral tubal ostial dimples seen. Curettage produced minimal tissue. The typical gritty texture was encountered throughout. Vaginal hysterectomy would only be possible if an episiotomy was cut prior to the procedure. Description of Procedure: The patient was prepped and draped in usual fashion after general endotracheal anesthesia was administered by the anesthesiologist. A weighted speculum would not fit into the vagina. A narrow right angle retractor was placed and the cerv ix visualized at the apex of the vagina. Was grasped with a single-tooth tenaculum. The bladder was then drained of approximately 50 mL of clear anjelica urine. A small dilator was used to penetrate the stenotic cervical opening and, after several dilators were passed, the uterine sound was placed and found to be to a depth of 5 cm which was felt to be the true depth. Further probing with the uterine sound and dilators failed to demonstrate any further depth to the cavity. Serial dilation was carried out to admit the diagnostic hysteroscope which was placed into the uterus and the cavity distended with sorbitol. As noted above, there were only atrophic findings throughout. There did appear to be bilateral dimples where the sites of the tubal ostia would be. After finding no pathology, the scope was removed and set aside and a small sharp curette introduced into the endometrial cavity. A Telfa was placed in the vagina. Thorough and circumferential curettage was carried out with minimal tissue in the typical very gritty texture encountered throughout the cavity. All instrumentation was then removed. There was some ongoing bleeding from the tenaculum sites which was made hemostatic with pressure. Estimated blood loss for the case was 5 mL or less. There were no complications. All sponge, instrument, and needle counts were correct. The patient tolerated the procedure well and proceeded to the recovery room in stable condition.
[2021-12-27 12:10] VITALS: RESP 16
[2021-12-27 13:31] VITALS: BP 127/74; PULSE 77
[2021-12-28] MEDS ORDERED: ACETAMINOPHEN TAB 325 MG TAB PO PRN (11:45)
== END 2021-12-27 13:37 | disposition home or self-care (01) ==
LOC: OR 09:27
PROVIDERS: ATTEND Obstetrics & Gynecology
DX: N95.0 Postmenopausal bleeding (principal); I10 Essential (primary) hypertension; J45.909 Unspecified asthma, uncomplicated; E07.9 Disorder of thyroid, unspecified; Z79.82 Long term (current) use of aspirin; Z80.3 Family history of malignant neoplasm of breast; Z80.0 Family history of malignant neoplasm of digestive organs; Z82.49 Family history of ischemic heart disease and other diseases of the circulatory system; Z98.891 History of uterine scar from previous surgery; Z79.899 Other long term (current) drug therapy
CPT/HCPCS: 58558; J0330; J1100; J2405; J3010; J2704; J2001; 88305

== ENCOUNTER → 2022-06-22 | Outpatient (CLI) | payer MEDICARE ==
--- NOTE | 2022-06-22 13:36 | MR ---
EXAMINATION TYPE: MR iac wo/w con DATE OF EXAM: 06/22/2022 COMPARISON: None HISTORY: Bilateral hearing loss, worse on right side TECHNIQUE: Multiplanar, multisequence images of the brain and brainstem is performed without and with IV contras t, utilizing 6 mL intravenous Gadavist . FINDINGS: Diffusion weighted images demonstrate no evidence of a recent infarct or other diffusion ab normality. There is a mild generalized degenerative change. There is both confluent and focal areas of abnormal signal scattered throughout the white matter bilaterally the largest area seen in the lef t frontal lobe measuring 7 mm. Midline structures demonstrate normal morphology. The craniocervical junction demonstrates low-lying cerebellar tonsils with the right cerebellar tonsil lying approximately 4 mm below the foramen magnu m. . Post contrast images demonstrate no abnormal enhancement. No evidence of cerebellar pontine angle mass or acoustic schwannoma. Mild changes of chronic mastoiditis in the left. Mild changes of chronic sinusitis. IMPRESSION: 1. No evidence of cerebellopontine angle mass or acoustic schwannoma. 2. Mild left-sided chronic mastoiditis. 3. Mild degenerative change and nonspecific white matter changes most typical of remote microvascular ischemia. 4. The tonsillar cerebellar ectopia correlate for Chiari malformation.
== END | disposition home or self-care (01) ==
LOC: RADMRIMAIN 09:22
PROVIDERS: ATTEND Otolaryngology
DX: H90.41 Sensorineural hearing loss, unilateral, right ear, with unrestricted hearing on the contralateral side (principal); G93.89 Other specified disorders of brain; R90.82 White matter disease, unspecified
CPT/HCPCS: 70553; A9585

== ENCOUNTER → 2022-08-17 | Outpatient (CLI) | payer MEDICARE ==
--- NOTE | 2022-08-17 15:44 | MM ---
Reason for Exam: Hx of breast cancer, conservation therapy. Last screening mammogram was performed 12 month(s) ago. Patient History: Menarche at age 14. First Full-Term at age 34. Late child-bearing (after 30). Postmenopausal. Breast cancer, left, age 64. Hormonal Contraceptives for 2 months. 11/15/2015, Malignant Core Biopsy on the left side. 10/28/2015, Malignant Core Biopsy on the left side. 2016, Radiation Therapy on the left side. Maternal cousin had breast cancer, age 40. Maternal aunt had breast cancer, age 50. Tissue Density: There are scattered fibroglandular densities. Findings: Analyzed By CAD. Post surgical and posttreatment changes left breast. Unchanged asymmetric density subareolar right. Centrally located asymmetric density posteriorly on the right CC view does not persist on spot 3-D images. No significant change from prior exams. Overall Assessment: Benign, BI-RAD 2 Management: Screening Mammogram of both breasts in 1 year. . Results were given to the patient verbally at the time of exam. Patient should continue monthly self-breast exams. A clinical breast exam by your physician is recommended on an annual basis. This exam should not preclude additional follow-up of suspicious palpable abnormalities. Note on Luiza scores and lifetime risk: 1. A Luiza score greater than 3% is considered moderate risk. If this is the case, consider specialist referral to assess eligibility for a risk reducing agent. 2. If overall lifetime risk for the development of breast cancer is 20% or higher, the patient may qualify for future screening with alternating mammogram and breast MRI. Electronically signed and approved by: Taz Montana M.D. Radiologist
== END | disposition home or self-care (01) ==
LOC: RADMAMWWP 14:43
PROVIDERS: ATTEND Radiology Radiation Oncology
DX: D05.12 Intraductal carcinoma in situ of left breast (principal); Z78.0 Asymptomatic menopausal state; Z80.3 Family history of malignant neoplasm of breast; Z85.3 Personal history of malignant neoplasm of breast
CPT/HCPCS: 77066; G0279; 77062

== ENCOUNTER 2023-04-02 11:13 | Emergency (ER) | payer MEDICARE ==
[2023-04-02 11:44] VITALS: TEMP 98.4
[2023-04-02 12:06] LABS: Basophils % (A) 1 %; Eosinophils # (A) 0.4 k/uL (0-0.7); Eosinophils % (A) 5 %; HCT 39.2 % (34.0-46.0); HGB 13.1 gm/dL (11.4-16.0); Lymphocytes # (A) 1.3 k/uL (1.0-4.8); Lymphocytes % (A) 18 %; MCH 30.4 pg (25.0-35.0); MCHC 33.4 g/dL (31.0-37.0); MCV 91.1 fL (80.0-100.0); Mean Platelet Volume 8.8; Monocytes # (A) 0.4 k/uL (0-1.0); Monocytes % (A) 5 %; Neutrophils # (A) 4.8 k/uL (1.3-7.7); Neutrophils % (A) 70 %; Platelet Count 170 k/uL (150-450); RDW 13.1 % (11.5-15.5)
[2023-04-02 12:16] LABS: Appearance,Urine Clear (Clear); Bilirubin,Urine Negative (Negative); Blood,Urine Negative (Negative); Color,Urine Colorless; Glucose,Urine (UA) Negative (Negative); Ketones,Urine Negative (Negative); Leukocyte Esterase,Urine Negative (Negative); Nitrite,Urine Negative (Negative); Protein,Urine Negative (Negative); Specific Gravity,Urine 1.016 (1.001-1.035); Urobilinogen,Urine <2.0 mg/dL (<2.0)
[2023-04-02 12:18] LABS: ALT 15 U/L (4-34); AST 22 U/L (14-36); African American GFR (CKD) 72 (>60 ml/min/1.73 sqM); Albumin 3.8 g/dL (3.5-5.0); Alkaline Phosphatase 69 U/L (38-126); Anion Gap 6 mmol/L; Blood Urea Nitrogen 27 mg/dL (7-17); Carbon Dioxide 25 mmol/L (22-30); Chloride 107 mmol/L (98-107); Glucose 129 mg/dL (74-99); Magnesium 2.2 mg/dL (1.6-2.3); Non-African American GFR(CKD) 62 (>60 ml/min/1.73 sqM); Potassium 4.4 mmol/L (3.5-5.1); Sodium 138 mmol/L (137-145); Total Bilirubin 0.5 mg/dL (0.2-1.3); Total Protein 6.7 g/dL (6.3-8.2)
[2023-04-02] MEDS: SODIUM CHLORIDE 0.9% 500 ML 500 ML IV ONE (12:22)
--- NOTE | 2023-04-02 12:30 | XR ---
EXAMINATION TYPE: XR chest 2V DATE OF EXAM: 04/02/2023 COMPARISON: 04/16/2022 TECHNIQUE: PA and lateral views submitted. HISTORY: Weakness FINDINGS: Demonstrated are scattered senescent parenchymal change. There is no evidence for focal infiltrate. C hronic right basilar pleural- parenchymal density. The heart is stable. Hilar and mediastinal structu res are within normal limits. Degenerative changes are seen of the dorsal spine. Severe scoliosis of the thoracic spine convex to the right with Jc rods in place. IMPRESSION: 1. Chronic changes without evidence for acute pulmonary disease.
--- NOTE | 2023-04-02 12:39 | ED ---
General Adult HPI - General Chief complaint: Dizziness Stated complaint: Dizziness Time Seen by Provider: 04/02/23 11:16 Source: patient, RN notes reviewed, old records reviewed Mode of arrival: ambulatory Limitations: no limitations - History of Present Illness Initial comments: 72-year-old female presenting for evaluation of lightheadedness over the past several weeks. Patient does admit to being overworked and states that her symptoms predominantly come with prolonged standing. She denies chest pain or palpitation. Denies fever. Denies vomiting. Denies focal numbness or weakness. - Related Data Home Medications Medication Instructions Recorded Confirmed traMADol HCL [Ultram] 50 mg PO TID PRN 03/12/14 04/16/22 diphenhydrAMINE [Benadryl] 25 mg PO BID PRN 11/12/15 04/16/22 Levothyroxine Sodium [Levoxyl] 25 mcg PO DAILY 11/30/15 04/16/22 Tamoxifen Citrate 20 mg PO DAILY 08/10/16 04/16/22 Flecainide Acetate [Tambocor] 100 mg PO Q12HR 03/06/18 04/16/22 Apixaban [Eliquis] 5 mg PO BID 01/06/20 04/16/22 Loratadine [Claritin] 10 mg PO DAILY PRN 03/30/20 04/16/22 amLODIPine [Norvasc] 10 mg PO DAILY 01/26/21 04/16/22 Previous Rx's Medication Instructions Recorded Colchicine [Colcrys] 0.6 mg PO BID 14 Days #28 each 04/17/22 Allergies Allergy/AdvReac Type Severity Reaction Status Date / Time ciprofloxacin [From Cipro] Allergy Rash/Hives Verified 04/16/22 12:52 ciprofloxacin HCl Allergy Rash/Hives Verified 04/02/23 11:19 [From Cipro] fexofenadine HCl Allergy Rash/Hives Verified 04/02/23 11:19 [From Rupinder] amoxicillin [From Augmentin] AdvReac Nausea Verified 04/02/23 11:19 clavulanic acid AdvReac Nausea Verified 04/02/23 11:19 [From Augmentin] prednisone AdvReac Unknown Verified 04/02/23 11:19 Gkftuwp-HOG-RxP Reductase AdvReac muscle Verified 04/02/23 11:19 Inhibitor cramps [Hhnlswk-Rwn-Osr Reductase Inhibitor] theophylline anhydrous AdvReac headaches, Verified 04/02/23 11:19 [From Morteza-Dur] N/V Review of Systems ROS Statement: Those systems with pertinent positive or pertinent negative responses have been documented in the HPI. ROS Other: All systems not noted in ROS Statement are negative. Past Medical History Past Medical History: Atrial Fibrillation, Asthma, Cancer, Hypertension, Osteoarthritis (OA), Pneumonia, Thyroid Disorder Additional Past Medical History / Comment(s): SCOLIOSIS, MIGRAINES, HX OF Left BREAST CANCER S/P LUMPECTOMY & RADIATION (2015)., OCCASIONAL VERTIGO., BACK PAIN. PAST CLOSER ON HISTORY: History of lichen sclerosis by vulvar biopsy. History of Any Multi-Drug Resistant Organisms: None Reported Past Surgical History: Back Surgery, Breast Surgery, Section Additional Past Surgical History / Comment(s): JACOBO CATARACT SX-LENS IMPLANTS, HAS A GISELLE IN BACK, LOOP RECORDER INSERTION & REMOVAL., LEFT BREAST LUMPECTOMY (10/2015). Carpal tunnel surgery. Endometrial polyp removed with hysteroscopy and D& 2018. Colonoscopy 2021 . Past Anesthesia/Blood Transfusion Reactions: No Reported Reaction Additional Past Anesthesia/Blood Transfusion Reaction / Comment(s): DENIES MOTION SICKNESS Past Psychological History: No Psychological Hx Reported Smoking Status: Never smoker Past Alcohol Use History: None Reported Past Drug Use History: None Reported - Past Family History Father Family Medical History: Cancer, COPD, Osteoarthritis (OA) Additional Family Medical History / Comment(s): ALCOHOLIC Mother Family Medical History: No Reported History Additional Family Medical History / Comment(s): ALCOHOLIC/SMOKER. Grandmother had colon cancer and a cousin had breast cancer. Sister(s) Family Medical History: Cancer Additional Family Medical History / Comment(s): SKIN CANCER General Exam Limitations: no limitations General appearance: alert, in no apparent distress Head exam: Present: atraumatic, normocephalic Eye exam: Present: normal appearance, PERRL ENT exam: Present: normal exam Neck exam: Present: normal inspection. Absent: tenderness, meningismus Respiratory exam: Present: normal lung sounds bilaterally. Absent: respiratory distress, wheezes, rales Cardiovascular Exam: Present: regular rate, normal rhythm GI/Abdominal exam: Present: soft. Absent: distended, tenderness, guarding Extremities exam: Present: normal inspection, normal capillary refill. Absent: pedal edema, joint swelling Neurological exam: Present: alert, oriented X3, CN II-XII intact. Absent: motor sensory deficit Psychiatric exam: Present: normal affect, normal mood Skin exam: Present: warm, dry, intact. Absent: cyanosis, diaphoretic Course Vital Signs 04/02/23 04/02/23 11:17 12:00 Temperature 98.4 F Pulse Rate 61 58 L Respiratory 20 18 Rate Blood Pressure 180/90 182/91 O2 Sat by Pulse 99 Oximetry Medical Decision Making - Medical Decision Making Was pt. sent in by a medical professional or institution (, [facility], PREPARATION SUPERVISOR [employer], urgent care, hospital, or fci...) When possible be specific @ -No Did you speak to anyone other than the patient for history (EMS, parent, family, police, friend...)? What history was obtained from this source @ -No Did you review nursing and triage notes (agree or disagree)? Why? @ -I reviewed and agree with nursing and triage notes Were old charts reviewed (outside hosp., previous admission, EMS record, old EKG, old radiological studies, urgent care reports/EKG's, fci records)? Report findings @ -No old charts were reviewed Differential Diagnosis (chest pain, altered mental status, abdominal pain women, abdominal pain men, vaginal bleeding, weakness, fever, dyspnea, syncope, headache, dizziness, GI bleed, back pain, seizure, CVA, palpatations, mental health, musculoskeletal)? @ -Not applicable EKG interpreted by me (3pts min.). @ -Sinus bradycardia rate of 56, GA interval 157, QRS duration 114, QTc [address] segment elevation. X-rays interpreted by me (1pt min.). @ -None done CT interpreted by me (1pt min.). @ -None done U/S interpreted by me (1pt. min.). @ -None done What testing was considered but not performed or refused? (CT, X-rays, U/S, labs)? Why? @ -None What meds were considered but not given or refused? Why? @ -None Did you discuss the management of the patient with other professionals (professionals i.e. , [facility]OM[facility], PREPARATION SUPERVISOR [employer], lab, RT, psych nurse, social science teacher, chyron operator, teacher, senior grants officer, family preservation caseworker)? Give summary @ -No Was smoking cessation discussed for >3mins.? @ -No Was critical care preformed (if so, how long)? @ -No Were there social determinants of health that impacted care today? How? (Homeles sness, low income, unemployed, alcoholism, drug addiction, transportation, low edu. Level, literacy, decrease access to med. care, skilled nursing, rehab)? @ -No Was there de-escalation of care discussed even if they declined (Discuss DNR or withdrawal of care, Hospice)? DNR status @ -No What co-morbidities impacted this encounter? (DM, HTN, Smoking, COPD, CAD, Cancer, CVA, ARF, Chemo, Hep., AIDS, mental health diagnosis, sleep apnea, morbid obesity)? @ -None Was patient admitted / discharged? Hospital course, mention meds given and route, prescriptions, significant lab abnormalities, going to OR and other pertinent info. @ -[72-year-old female presents for evaluation of lightheadedness. This been ongoing for several weeks. Patient is hypertensive Undiagnosed new problem with uncertain prognosis? @ -No Drug Therapy requiring intensive monitoring for toxicity (Heparin with otherwise normal vitals. She has no focal findings. She is well-appearing. She states that symptoms are worse when she is at work and states she does work in a hot environment. She is 72 and working full-time hours. She does admit that she may be overdoing it. Patient is in sinus rhythm. She has a clear chest x-ray. Normal laboratory testing. Patient has no symptoms at the time my reevaluation. She is stable for discharge at this time with outpatient follow- up and strict return parameters. Were any procedures done? @ -No Diagnosis/symptom? @Lightheadedness Acute, or Chronic, or Acute on Chronic? @ -Acute Uncomplicated (without systemic symptoms) or Complicated (systemic symptoms)? @ -Default Side effects of treatment? @ -No Exacerbation, Progression, or Severe Exacerbation? @ -No Poses a threat to life or bodily function? How? (Chest pain, USA, HI, pneumonia, PE, COPD, DKA, ARF, appy, cholecystitis, CVA, Diverticulitis, Homicidal, Suicidal, threat to staff... and all critical care pts) @ -[Low risk at this time - Lab Data Result diagrams: 04/02/23 11:41 04/02/23 11:41 Lab Results 04/02/23 04/02/23 04/02/23 Range/Units 11:41 11:41 11:41 WBC 7.0 (3.8-10.6) k/uL RBC 4.30 (3.80-5.40) m/uL Hgb 13.1 (11.4-16.0) gm/dL Hct 39.2 (34.0-46.0) % MCV 91.1 (80.0-100.0) fL MCH 30.4 (25.0-35.0) pg MCHC 33.4 (31.0-37.0) g/dL RDW 13.1 (11.5-15.5) % Plt Count 170 (150-450) k/uL MPV 8.8 Neutrophils % 70 % Lymphocytes % 18 % Monocytes % 5 % Eosinophils % 5 % Basophils % 1 % Neutrophils # 4.8 (1.3-7.7) k/uL Lymphocytes # 1.3 (1.0-4.8) k/uL Monocytes # 0.4 (0-1.0) k/uL Eosinophils # 0.4 (0-0.7) k/uL Basophils # 0.0 (0-0.2) k/uL PT 11.1 (10.0-12.5) sec INR 1.0 (<1.2) APTT 25.6 (22.0-30.0) sec Sodium (137-145) mmol/L Potassium (3.5-5.1) mmol/L Chloride (98-107) mmol/L Carbon Dioxide (22-30) mmol/L Anion Gap mmol/L BUN (7-17) mg/dL Creatinine (0.52-1.04) mg/dL Est GFR (CKD-EPI)AfAm (>60 ml/min/1.73 sqM) Est GFR (CKD-EPI)NonAf (>60 ml/min/1.73 sqM) Glucose (74-99) mg/dL Plasma Lactic Acid Aniket (0.7-2.0) mmol/L Calcium (8.4-10.2) mg/dL Magnesium (1.6-2.3) mg/dL Total Bilirubin (0.2-1.3) mg/dL AST (14-36) U/L ALT (4-34) U/L Alkaline Phosphatase (38-126) U/L Troponin I (0.000-0.034) ng/mL Total Protein (6.3-8.2) g/dL Albumin (3.5-5.0) g/dL Urine Color Colorless Urine Appearance Clear (Clear) Urine pH 5.0 (5.0-8.0) Ur Specific [place] 1.016 (1.001-1.035) Urine Protein Negative (Negative) Urine Glucose (UA) Negative (Negative) Urine Ketones Negative (Negative) Urine Blood Negative (Negative) Urine Nitrite Negative (Negative) Urine Bilirubin Negative (Negative) Urine Urobilinogen <2.0 (<2.0) mg/dL Ur Leukocyte Esterase Negative (Negative) 04/02/23 04/02/23 04/02/23 Range/Units 11:41 11:41 11:41 WBC (3.8-10.6) k/uL RBC (3.80-5.40) m/uL Hgb (11.4-16.0) gm/dL Hct (34.0-46.0) % MCV (80.0-100.0) fL MCH (25.0-35.0) pg MCHC (31.0-37.0) g/dL RDW (11.5-15.5) % Plt Count (150-450) k/uL MPV Neutrophils % % Lymphocytes % % Monocytes % % Eosinophils % % Basophils % % Neutrophils # (1.3-7.7) k/uL Lymphocytes # (1.0-4.8) k/uL Monocytes # (0-1.0) k/uL Eosinophils # (0-0.7) k/uL Basophils # (0-0.2) k/uL PT (10.0-12.5) sec INR (<1.2) APTT (22.0-30.0) sec Sodium 138 (137-145) mmol/L Potassium 4.4 (3.5-5.1) mmol/L Chloride 107 (98-107) mmol/L Carbon Dioxide 25 (22-30) mmol/L Anion Gap 6 mmol/L BUN 27 H (7-17) mg/dL Creatinine 0.93 (0.52-1.04) mg/dL Est GFR (CKD-EPI)AfAm 72 (>60 ml/min/1.73 sqM) Est GFR (CKD-EPI)NonAf 62 (>60 ml/min/1.73 sqM) Glucose 129 H (74-99) mg/dL Plasma Lactic Acid Aniket 1.0 (0.7-2.0) mmol/L Calcium 9.0 (8.4-10.2) mg/dL Magnesium 2.2 (1.6-2.3) mg/dL Total Bilirubin 0.5 (0.2-1.3) mg/dL AST 22 (14-36) U/L ALT 15 (4-34) U/L Alkaline Phosphatase 69 (38-126) U/L Troponin I <0.012 (0.000-0.034) ng/mL Total Protein 6.7 (6.3-8.2) g/dL Albumin 3.8 (3.5-5.0) g/dL Urine Color Urine Appearance (Clear) Urine pH (5.0-8.0) Ur Specific [place] (1.001-1.035) Urine Protein (Negative) Urine Glucose (UA) (Negative) Urine Ketones (Negative) Urine Blood (Negative) Urine Nitrite (Negative) Urine Bilirubin (Negative) Urine Urobilinogen (<2.0) mg/dL Ur Leukocyte Esterase (Negative) Disposition Clinical Impression: Weakness, Lightheaded Disposition: HOME SELF-CARE Condition: Good Instructions (If sedation given, give patient instructions): Dizziness (ED) Is patient prescribed a controlled substance at d/c from ED?: No Referrals: Jhon Hickey MD [Primary Care Provider] - 1-2 days Time of Disposition: 13:14
[2023-04-02 12:42] VITALS: RESP 18
[2023-04-02 13:01] LABS: Partial Thromboplastin Time 25.6 sec (22.0-30.0); Prothrombin Time 11.1 sec (10.0-12.5)
[2023-04-02 14:09] VITALS: BP 179/93; PULSE 57
== END 2023-04-02 14:01 | disposition home or self-care (01) ==
LOC: EC 11:13
DX: R42 Dizziness and giddiness (principal); R53.1 Weakness; I48.91 Unspecified atrial fibrillation; J45.909 Unspecified asthma, uncomplicated; I10 Essential (primary) hypertension; E07.9 Disorder of thyroid, unspecified; Z79.890 Hormone replacement therapy; Z79.01 Long term (current) use of anticoagulants; Z88.1 Allergy status to other antibiotic agents; Z88.0 Allergy status to penicillin; Z88.8 Allergy status to other drugs, medicaments and biological substances
CPT/HCPCS: 36415; 71046; 80053; 81003; 83605; 83735; 84484; 85025; 85610; 85730; 93005; 96360; 99284

== ENCOUNTER → 2023-04-21 | Outpatient (CLI) | payer MEDICARE ==
[2023-04-21 21:59] LABS: Basophils # (A) 0.09 X 10*3/uL (0.00-0.10); Basophils % (A) 1.1 %; Eosinophils # (A) 0.28 X 10*3/uL (0.04-0.35); Eosinophils % (A) 3.4 %; HCT 37.8 % (37.2-46.3); HGB 11.8 g/dL (12.0-15.0); Lymphocytes # (A) 1.67 X 10*3/uL (0.90-5.00); Lymphocytes % (A) 20.3 %; MCH 28.7 pg (27.0-32.0); MCHC 31.2 g/dL (32.0-37.0); Mean Platelet Volume 11.1 FL (9.5-12.2); Monocytes # (A) 0.64 X 10*3/uL (0.20-1.00); Monocytes % (A) 7.8 %; NRBC Per 100 WBC 0 X 10*3/uL (0.00-0.01); Neutrophils # (A) 5.52 X 10*3/uL (1.80-7.70); Neutrophils % (A) 67.3 %; Platelet Count 258 X 10*3/uL (140-440); RBC 4.11 X 10*6/uL (4.10-5.20); RDW 13.3 % (11.5-14.5); WBC 8.21 X 10*3/uL (4.50-10.00)
[2023-04-21 22:24] LABS: ALT 9 U/L (8-44); AST 18 U/L (13-35); Albumin/Globulin Ratio 1.54 Ratio (1.60-3.17); Alkaline Phosphatase 69 U/L (41-126); BUN/Creat Ratio 21.54 Ratio (12.00-20.00); Calcium 9.3 mg/dL (8.7-10.3); Carbon Dioxide 25.7 mmol/L (21.6-31.8); Chloride 98 mmol/L (96-109); Globulin 2.6 g/dL (1.6-3.3); Glucose 87 mg/dL (70-110); Sodium 135 mmol/L (135-145); Total Bilirubin 0.5 mg/dL (0.3-1.2); Total Protein 6.6 g/dL (6.2-8.2)
== END | disposition home or self-care (01) ==
LOC: LABWHC1 09:37
PROVIDERS: ATTEND Family Medicine
DX: I10 Essential (primary) hypertension (principal); E03.9 Hypothyroidism, unspecified
CPT/HCPCS: 36415; 80053; 84439; 84443; 84481; 85025

== ENCOUNTER → 2023-06-18 | Outpatient (CLI) | payer MEDICARE ==
[2023-06-18 15:56] LABS: ALT 12 U/L (8-44); AST 19 U/L (13-35); Albumin 4.1 g/dL (3.8-4.9); Albumin/Globulin Ratio 1.78 Ratio (1.60-3.17); Alkaline Phosphatase 61 U/L (41-126); BUN/Creat Ratio 16.11 Ratio (12.00-20.00); Blood Urea Nitrogen 14.5 mg/dL (9.0-27.0); Carbon Dioxide 26.7 mmol/L (21.6-31.8); Chloride 102 mmol/L (96-109); Globulin 2.3 g/dL (1.6-3.3); Glucose 98 mg/dL (70-110); Potassium 4.4 mmol/L (3.5-5.5); Sodium 137 mmol/L (135-145); Total Bilirubin 0.4 mg/dL (0.3-1.2); Total Protein 6.4 g/dL (6.2-8.2)
== END | disposition home or self-care (01) ==
LOC: LABWHC1 11:14
PROVIDERS: ATTEND Family Medicine
DX: I10 Essential (primary) hypertension (principal)
CPT/HCPCS: 36415; 80053

== ENCOUNTER → 2023-08-20 | Outpatient (CLI) | payer MEDICARE ==
--- NOTE | 2023-08-20 09:41 | MM ---
Reason for Exam: Additional evaluation requested from prior study. Last screening mammogram was performed 12 month(s) ago. Patient History: Menarche at age 14. First Full-Term at age 34. Late child-bearing (after 30). Postmenopausal. Breast cancer, left, age 64. Hormonal Contraceptives for 2 months. 11/15/2015, Malignant Core Biopsy on the left side. 10/28/2015, Malignant Core Biopsy on the left side. 2016, Radiation Therapy on the left side. Maternal cousin had breast cancer, age 40. Maternal aunt had breast cancer, age 50. Prior Study Comparison: 08/08/2019 Bilateral Diagnostic Mammogram, [facility]. 08/12/2020 Bilateral Diagnostic Mammogram, [facility]. 08/15/2021 Bilateral MG 3D diag mammo w/cad JACOBO, [facility]. 08/17/2022 Bilateral MG 3D diag mammo w/cad JACOBO, [facility]. Tissue Density: There are scattered areas of fibroglandular density. Findings: Analyzed By CAD. Postoperative distortion left breast. No evidence for new mass. No new areas of distortion. No suspicious microcalcifications. Overall Assessment: Benign, BI-RAD 2 Management: Diagnostic Mammogram of both breasts in 1 year. . Results were given to the patient verbally at the time of exam. Patient should continue monthly self-breast exams. A clinical breast exam by your physician is recommended on an annual basis. This exam should not preclude additional follow-up of suspicious palpable abnormalities. Note on Luiza scores and lifetime risk: 1. A Luiza score greater than 3% is considered moderate risk. If this is the case, consider specialist referral to assess eligibility for a risk reducing agent. 2. If overall lifetime risk for the development of breast cancer is 20% or higher, the patient may qualify for future screening with alternating mammogram and breast MRI. Electronically signed and approved by: Cade Mcarthur M.D. Radiologis
== END | disposition home or self-care (01) ==
LOC: RADMAMWWP 09:18
PROVIDERS: ATTEND Family Medicine
DX: Z85.3 Personal history of malignant neoplasm of breast (principal); R92.323 Mammographic fibroglandular density, bilateral breasts; Z78.0 Asymptomatic menopausal state; Z80.3 Family history of malignant neoplasm of breast
CPT/HCPCS: 77066; G0279; 77062